=== PATIENT | male | born 1935 | race Caucasian/White ===

== ENCOUNTER 2016-09-22 21:27 | Inpatient (IN) | payer OTHER, MEDICARE ==
[~2016-09-22] VITALS: Ht 182.9 cm; Wt 93.8 kg
[~2016-09-22 21:27] MED LIST: ACET300T2 PO; AMIO200T PO; ATOR40TA16 PO; CARV3.12 PO; DIGO0.12 PO; FURO40TA PO; IPRASOL NEB; K-TA10TA PO; LORA-373 PO; PANT40TA3 PO; PROS5TAB PO; RAMI5CAP PO; TAMS0.4C4 PO; WARF-20 PO; WARF-58 PO
[2016-09-22 22:01] VITALS: BP 115/73; PULSE 70; RESP 15; TEMP 97.6; O2SAT 94
[2016-09-23] VITALS (14 sets, daily range): BP systolic 105–138; BP diastolic 60–84; PULSE 68–85; RESP 18–20; TEMP 97.1–98.5; O2SAT 89–98
[2016-09-23] MEDS ORDERED: SODIUM CHLORIDE 0.9% FLUSH 5 ML FLUSH IVF PRN ×2 (00:15→03:15)
--- NOTE | 2016-09-23 00:47 | RADRPT ---
EXAM DATE/TIME: 09/23/2016 00:13 [place] COMPARISON: CHEST SINGLE AP, August 30, 2016, 4:34. INDICATIONS : Shortness of breath. MEDICAL HISTORY : None. SURGICAL HISTORY : Pacemaker. ENCOUNTER: Initial ACUITY: 1 day PAIN SCORE: 0/10 LOCATION: Bilateral chest FINDINGS: Patchy airspace infiltrates in the central and lower lungs bilaterally with left lower lung consolida tion loss of delineation entire left hemidiaphragm. No evidence of pneumothorax. The heart is mildl y enlarged, similar in size and configuration the prior exam. Cardiac pacer leads in place. CONCLUSION: Increasing consolidation left lower lobe and new patchy infiltrates in the central lungs bilaterally. Yoel Mathur MD on September 23, 2016 at 0:45 Board Certified Radiologist. This report was verified electronically.
[2016-09-23 01:14] LABS: AUTOMATED NEUTROPHIL # 5.3 TH/MM3 (1.8-7.7); BASOPHIL # 0.1 TH/MM3 (0-0.2); EOSINOPHIL # 0.3 TH/MM3 (0-0.4); EOSINOPHIL % 3.7 % (0.0-4.0); HEMATOCRIT 42.6 % (39.0-51.0); LYMPH % 12.3 % (9.0-44.0); LYMPHOCYTE # 0.9 TH/MM3 (1.0-4.8); MEAN CELL VOLUME 94.8 FL (80.0-100.0); MEAN CORPUSCULAR HEMOGLOBIN 31.5 PG (27.0-34.0); MEAN CORPUSCULAR HGB CONC 33.3 % (32.0-36.0); MONO % 9.2 % (0.0-8.0); NEUT % 73.8 % (16.0-70.0); PLATELET COUNT 97 TH/MM3 (150-450); RED CELL DISTRIBUTION WIDTH 15.6 % (11.6-17.2); WHITE BLOOD COUNT 7.2 TH/MM3 (4.0-11.0)
[2016-09-23 01:19] LABS: APTT (PATIENT) 34.2 SEC (24.3-30.1); INTERNATIONAL NORMALIZED RATIO 3.3 RATIO; PROTHROMBIN TIME - PATIENT 38.1 SEC (9.8-11.6)
[2016-09-23 01:34] LABS: HEMO FLAGS AUTO DIFF
[2016-09-23 02:00] LABS: PLATELET ESTIMATE SMEAR LOW (NORMAL); PLATELET MORPHOLOGY NORMAL (NORMAL); SCAN/DIFF AUTO DIFF CONFIRMED
[2016-09-23 02:47] LABS: ALKALINE PHOSPHATASE 86 U/L (45-117); ALT (GPT) 22 U/L (12-78); ANION GAP 7 MEQ/L (5-15); AST (GOT) 16 U/L (15-37); BICARBONATE 28.5 MEQ/L (21.0-32.0); BLOOD UREA NITROGEN 15 MG/DL (7-18); CHLORIDE 111 MEQ/L (98-107); GLOMERULAR FILTRATION RATE 49 ML/MIN (>89); MAGNESIUM 1.8 MG/DL (1.5-2.5); POTASSIUM 4.2 MEQ/L (3.5-5.1); SODIUM (NA) 146 MEQ/L (136-145); TOTAL BILIRUBIN ADULT 0.4 MG/DL (0.2-1.0)
[2016-09-23 02:59] LABS: CREATINE KINASE 53 U/L (39-308)
--- NOTE | 2016-09-23 03:13 | PD ---
HPI Chief Complaint: [place] Problem Time Seen by Provider: 00:03 Travel History International Travel<30 days: No Contact w/Intl Traveler<30days: No Traveled to known affect area: No History of Present Illness HPI 81-year-old male arrives to the ER complaining of migrating left anterior chest wall pacing device. He feels as though it has migrated inferiorly. He also notes that the night prior he felt quite diaphoretic of the course of the night. He also has some shortness of breath. He feels short of breath with ambulation. He has no chest pain. Severity moderate. He denies orthopnea. He reports compliance with medications. No fever. Location cardiopulmonary. PFSH Past Medical History Hx Anticoagulant Therapy: Yes AAA: Yes (REPAIRED 2004) Atrial Fibrillation: Yes Blood Disorders: No Heart Rhythm Problems: Yes (AFIB) Cancer: No Cardiovascular Problems: Yes High Cholesterol: Yes Chest Pain: Yes Congestive Heart Failure: Yes Coronary Artery Disease: Yes Diminished Hearing: Yes (RIGHT EAR) Deep Vein Thrombosis: Yes Endocrine: No Gastrointestinal Disorders: Yes (GI BLEED) GERD: Yes Genitourinary: Yes Hiatal Hernia: No Hypertension: Yes Immune Disorder: No Implanted Vascular Access Dvce: Yes Medical other: Yes (RECENT GI BLEED) Musculoskeletal: No Neurologic: No Psychiatric: No Reproductive: No Respiratory: Yes (sleep apnea) Immunizations Current: Yes (HAD CHILDHOOD ILLNESS IMMUNIZATIONS) Myocardial Infarction: Yes (2010) Pneumonia: Yes Ulcer: Yes PNEUMOCCOCAL Vaccine (Year): 2 Past Surgical History Abdominal Aneurysm Repair: Yes (2004) Abdominal Surgery: Yes (CHOLECYSTECTOMY) AICD: Yes Arteriovenous Shunt: No Body Medical Devices: defibrillator 2012 Cardiac Surgery: Yes (STENT LAD/ Defibrillator, CARDIAC CATH) Cholecystectomy: Yes Coronary Stent: Yes (APRIL 2011) Ear Surgery: No Endocrine Surgery: No Eye Surgery: No Genitourinary Surgery: No Gynecologic Surgery: No Insulin Pump: No Joint Replacement: No Oral Surgery: No Pacemaker: Yes (DEFIBRILLATOR) Thoracic Surgery: No Tonsillectomy: Yes Other Surgery: Yes (NICHO FILTER) Social History Alcohol Use: No Tobacco Use: Yes (2 CIGARS DAILY/DAY BEFORE ) Substance Use: No Allergies-Medications (Allergen,Severity, Reaction): Coded Allergies: Penicillin (Verified Allergy, Unknown, UNKNWON REACTION, 08/23/16) PATIENT STATES THAT HE IS NOT ALLERGIC TO THIS MEDICATION. Reported Meds & Prescriptions Reported Meds & Active Scripts Active Duoneb (Ipratropium-Albuterol Neb) 0.5-2.5 Mg/3 Ml Neb 1 Ampule NEB Q4HR PRN Amiodarone (Amiodarone HCl) 200 Mg Tab 200 Mg PO DAILY Acetaminophen-Codeine 300-30 mg Tab 2 Tab PO Q6HR PRN Lorazepam 0.5 Mg Tab 0.5 Mg PO Q12HR PRN Reported Spironolactone 25 Mg Tab 25 Mg PO DAILY Ciprofloxacin (Ciprofloxacin HCl) 500 Mg Tab 500 Mg PO BID Warfarin 4 Mg Tab 4 Mg PO MON,MON, ,MON Warfarin 3 Mg Tab 3 Mg PO MON,MON K-Tab (Potassium Chloride) 10 Meq Tab 10 Meq PO HS Furosemide 40 Mg Tab 40 Mg PO BID Proscar (Finasteride) 5 Mg Tab 5 Mg PO DAILY Do not crush. Carvedilol 3.125 Mg Tab 3.125 Mg PO BID Pantoprazole (Pantoprazole Sodium) 40 Mg Tab 40 Mg PO DAILY Ramipril 5 Mg Cap 5 Mg PO DAILY Atorvastatin (Atorvastatin Calcium) 40 Mg Tab 60 Mg PO HS Tamsulosin (Tamsulosin HCl) 0.4 Mg Cap 0.4 Mg PO HS Digoxin 0.125 Mg Tab 0.125 Mg PO DAILY Review of Systems Except as stated in HPI: all other systems reviewed are Neg Physical Exam Narrative GENERAL: 81-year-old male pleasant well-nourished well-developed SKIN: Warm and dry. Left anterior chest wall cardiac device mobile underlying the skin. HEAD: Atraumatic. Normocephalic. EYES: Pupils equal and round. No scleral icterus. No injection or drainage. ENT: No nasal bleeding or discharge. Mucous membranes pink and moist. NECK: Trachea midline. No JVD. CARDIOVASCULAR: Regular rate and rhythm. No murmur appreciated. RESPIRATORY: No accessory muscle use. Clear to auscultation. Breath sounds equal bilaterally. GASTROINTESTINAL: Abdomen soft, non-tender, nondistended. Hepatic and splenic margins not palpable. MUSCULOSKELETAL: No obvious deformities. No clubbing. No cyanosis. Nonpitting bilateral edema. NEUROLOGICAL: Awake and alert. No obvious cranial nerve deficits. Motor grossly within normal limits. Normal speech. PSYCHIATRIC: Appropriate mood and affect; insight and judgment normal. Data Data Last Documented VS Vital Signs Date Time Temp Pulse Resp B/P Pulse Ox O2 Delivery O2 Flow Rate FiO2 09/23/16 01:51 90 Nasal Cannula 2 09/23/16 01:50 85 18 105/60 09/22/16 22:01 97.6 Vital signs reviewed Orders Electrocardiogram (09/23/16 00:03) B-Type Natriuretic Peptide (09/23/16 00:03) Ckmb (Isoenzyme) Profile (09/23/16 00:03) Complete Blood Count With Diff (09/23/16 00:03) Comprehensive Metabolic Panel (09/23/16 00:03) Magnesium (Mg) (09/23/16 00:03) Prothrombin Time / Inr (Pt) (09/23/16 00:03) Act Partial Throm Time (Ptt) (09/23/16 00:03) Troponin I (09/23/16 00:03) Chest, Single Ap (09/23/16 00:03) Ecg Monitoring (09/23/16 00:03) Iv Access Insert/Monitor (09/23/16 00:03) Oximetry (09/23/16 00:03) Oxygen Administration (09/23/16 00:03) Sodium Chloride 0.9% Flush (Ns Flush) (09/23/16 00:15) Blood Culture (09/23/16 03:01) Sodium Chloride 0.9% Flush (Ns Flush) (09/23/16 03:15) Ceftriaxone Inj (Rocephin Inj) (09/23/16 03:15) Azithromycin Inj (Zithromax Inj) (09/23/16 03:15) Furosemide Inj (Lasix Inj) (09/23/16 03:15) Admit Order (Ed Use Only) (09/23/16 03:11) Consult Cardiology (09/23/16 ) Admit To Inpatient (09/23/16 ) Code Status (09/23/16 03:11) Vital Signs (Adult) Q4H (09/23/16 03:11) Activity Oob With Assistance (09/23/16 03:11) ^ Cryptographic Vulnerability Analyst / Telemetry .CONTINUOUS (09/23/16 03:11) Intake + Output MYRTLE.QSHIFT (09/23/16 03:11) Diet Heart Healthy (09/23/16 Breakfast) Sodium Chloride 0.9% Flush (Ns Flush) (09/23/16 03:15) Sodium Chloride 0.9% Flush (Ns Flush) (09/23/16 09:00) Acetaminophen (Tylenol) (09/23/16 03:15) Ondansetron Inj (Zofran Inj) (09/23/16 03:15) Prochlorperazine Supp (Compazine Supp) (09/23/16 03:15) Bisacodyl Supp (Dulcolax Supp) (09/23/16 03:15) Magnesium Hydroxide Liq (Milk Of Magnesi (09/23/16 03:15) Sennosides (Senokot) (09/23/16 03:15) Temazepam (Restoril) (09/23/16 03:15) Basic Metabolic Panel (Bmp) (09/24/16 06:00) Complete Blood Count With Diff (09/24/16 06:00) Resp Oxygen Thomas C Titrat 1-4 L (09/23/16 ) Pt Request For Service (09/23/16 03:11) Case Management Consult (09/23/16 03:11) Enoxaparin Inj (Lovenox Inj) (09/23/16 04:00) Scd Bilateral/Knee High MYRTLE.BID (09/23/16 03:11) Daniel Bilateral/Knee High MYRTLE.QSHIFT (09/23/16 03:11) Inpatient Certification (09/23/16 ) Labs Laboratory Tests Test 09/23/16 09/23/16 00:51 01:47 White Blood Count 7.2 TH/MM3 Red Blood Count 4.50 MIL/MM3 Hemoglobin 14.2 GM/DL Hematocrit 42.6 % Mean Corpuscular Volume 94.8 FL Mean Corpuscular Hemoglobin 31.5 PG Mean Corpuscular Hemoglobin 33.3 % Concent Red Cell Distribution Width 15.6 % Platelet Count 97 TH/MM3 Mean Platelet Volume 8.4 FL Neutrophils (%) (Auto) 73.8 % Lymphocytes (%) (Auto) 12.3 % Monocytes (%) (Auto) 9.2 % Eosinophils (%) (Auto) 3.7 % Basophils (%) (Auto) 1.0 % Neutrophils # (Auto) 5.3 TH/MM3 Lymphocytes # (Auto) 0.9 TH/MM3 Monocytes # (Auto) 0.7 TH/MM3 Eosinophils # (Auto) 0.3 TH/MM3 Basophils # (Auto) 0.1 TH/MM3 CBC Comment AUTO DIFF Differential Comment AUTO DIFF CONFIRMED Platelet Estimate LOW Platelet Morphology Comment NORMAL Prothrombin Time 38.1 SEC Prothromb Time International 3.3 RATIO Ratio Activated Partial 34.2 SEC Thromboplast Time B-Type Natriuretic Peptide 1491 PG/ML Sodium Level 146 MEQ/L Potassium Level 4.2 MEQ/L Chloride Level 111 MEQ/L Carbon Dioxide Level 28.5 MEQ/L Anion Gap 7 MEQ/L Blood Urea Nitrogen 15 MG/DL Creatinine 1.39 MG/DL Estimat Glomerular Filtration 49 ML/MIN Rate Random Glucose 113 MG/DL Calcium Level 8.1 MG/DL Magnesium Level 1.8 MG/DL Total Bilirubin 0.4 MG/DL Aspartate Amino Transf 16 U/L (AST/SGOT) Alanine Aminotransferase 22 U/L (ALT/SGPT) Alkaline Phosphatase 86 U/L Total Creatine Kinase 53 U/L Troponin I 0.05 NG/ML Total Protein 5.8 GM/DL Albumin 2.7 GM/DL [facility] Medical Decision Making Medical Screen Exam Complete: Yes Emergency Medical Condition: Yes Medical Record Reviewed: Yes Interpretation(s) CBC & BMP Diagram 09/23/16 00:51 09/23/16 01:47 BNP 1000 491 Troponin 0.05 Albumin 2.7 Urinalysis: Rbc's present INR 3.3 Differential Diagnosis NSTEMI, unstable angina, coronary vasospasm, PE, PTX, aortic dissection, pericarditis, myocarditis, endocarditis, PNA, esophageal disease, aneurysm, musculoskeletal etiologies, anxiety, cocaine/sympathomimetic abuse Narrative Course Patient received Lasix and antibiotics. Blood cultures obtained. Case discussed with Dr. Aquino. Diagnosis Primary Impression: CHF (congestive heart failure) Qualified Code: I50.9 - Congestive heart failure, unspecified congestive heart failure chronicity, unspecified congestive heart failure type Additional Impressions: PNA (pneumonia) Qualified Code: J18.9 - Pneumonia of both lower lobes due to infectious organism Mechanical complication of cardiac device, implant, and graft, other Admitting Information Admitting Physician Requests: Admit Pierce Clemons MD Sep 23, 2016 03:13
[2016-09-23] MEDS ORDERED: TEMAZEPAM 15 MG CAP PO PRN (03:15)
[2016-09-23] MEDS ORDERED: LORazepam 0.5 MG TAB PO PRN (03:15)
[2016-09-23] MEDS ORDERED: AZITHROMYCIN INJ 500 MG in SODIUM CHLOR 0.9% 250 ML INJ 250 ML IV ONE (03:15)
[2016-09-23] MEDS ORDERED: cefTRIAXone INJ 1,000 MG in SODIUM CHLORIDE 0.9% INJ 100 ML IV ONE (03:15)
[2016-09-23] MEDS ORDERED: MAGNESIUM HYDROXIDE SUSP 30 ML CUP PO PRN (03:15)
[2016-09-23] MEDS ORDERED: FUROSEMIDE 40 MG/4 ML VIAL IV PUSH ONE ×2 (03:15→05:15)
[2016-09-23] MEDS ORDERED: ONDANSETRON HCL 4 MG/2 ML VIAL IVP PRN (03:15)
[2016-09-23] MEDS ORDERED: ACETAMINOPHEN 325 MG TAB PO PRN (03:15)
[2016-09-23] MEDS ORDERED: BISACODYL 10 MG SUPP PR PRN (03:15)
[2016-09-23] MEDS ORDERED: SODIUM CHLORIDE 0.9% FLUSH 5 ML FLUSH FLUSH PRN (03:15)
[2016-09-23] MEDS ORDERED: PROCHLORPERAZINE 25 MG SUPP PR PRN (03:15)
[2016-09-23] MEDS ORDERED: SENNOSIDES 8.6 MG TAB PO PRN (03:15)
[2016-09-23] MEDS ORDERED: CIPR500T2 PO (03:54)
[2016-09-23] MEDS ORDERED: SPIR25TA PO (03:54)
[2016-09-23] MEDS ORDERED: ENOXAPARIN SODIUM 40 MG/0.4 ML SYRINGE SQ SCH (04:00)
--- NOTE | 2016-09-23 04:51 | HHI.HP ---
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 fib, dyslipidemia, hypertension, CHF, CAD presented with complaints of shortness of breath, high blood pressure and sweating for one day. Patient states yesterday he just wasn't feeling good at home he had an elevated blood pressure of 135/103, increasing shortness of breath and diaphoretic skin. Patient also states he's been having some chest discomfort from his pacemaker he states about one week ago it started to move in different places on the left side of his chest. He states he was seen by his cyber security systems engineer yesterday but nothing was changed with the pacemaker. He denies any fever or chills. Upon examination patient looks to be short of breath, with decreasing O2 sats to 89%, this is despite the 40 mg of Lasix given in the ED. Per the nurse patient has not voided much since the Lasix only about 300ml. Patient's cyber security systems engineer is Dr. Davis. Review of Systems Constitutional: COMPLAINS OF: Fatigue, Night Sweats, DENIES: Fever, Chills, Dizziness Ears, nose, mouth, throat: DENIES: Vertigo, Nasal discharge Respiratory: COMPLAINS OF: Cough, Shortness of breath, DENIES: Sputum production Cardiovascular: COMPLAINS OF: Chest pain (discomfort), Lower Extremity Edema Gastrointestinal: DENIES: Constipation, Diarrhea, Nausea, Vomiting Genitourinary: DENIES: Urinary incontinence, Hematuria, Dysuria Musculoskeletal: DENIES: Joint pain, Back pain, Neck pain Integumentary: DENIES: Pruritus, Rash Hematologic/lymphatic: DENIES: Lymphadenopathy Immunologic/allergic: DENIES: Urticaria Neurologic: DENIES: Headache, Localized weakness Past Family Social History Past Medical History Hypertension Hyperlipidemia BPH/chronic elevated PSA AAA s/p endovascular repair of AAA on 11-20-07 Tobacco use Chronic DVT/Hx of pulmonary embolism, had PE in 2001. He has had prior right brachial vein thrombosis and DVT of lower extremities a few years ago also. He had a DVT of the left lower extremity on ultrasound on 05-02-11 Hx of gastric ulcer in 2010 COPD/chronic bronchitis Coronary artery disease/Prior MS/Prior PTCA with stent Ischemic cardiomyopathy/LV dysfunction/CHF Paroxysmal atrial fibrillation Stage 3 CKD. His GFR was 58 on 12-17-15. Ascending aortic aneurysm Renal and hepatic cysts Pulmonary hypertension 2D echo on 11-14-13 --EF 20-25% with severe LV dysfunction and diffuse hypokinesis --Trace aortic regurgitation --Mild mitral regurgitation --LA moderately dilated --RV mildly dilated --RA mildly dilated --Tricuspid valve with mild regurgitation --RVSP of 41mm Hg. Past Surgical History Prostate biopsy that was negative on 07-19-02 Endovascular repair of AAA on 11-20-07 [place] IVC filter placed in Apr 2011 [facility] cath done in the setting of an acute anteroseptal MS on 05-04-11 and had moderate to severe LV dysfunction then and underwent PTCA with stent of a totally occluded LAD that was successful. Cardiac cath on 06-09-11 that showed severe LV dysfunction with EF of 30% Radiofrequency ablation of the AV node on 02-27-14 [facility] AICD and this was placed on 11-07-12 EGD on 04-17-11 that showed a large gastric ulcer and gastritis. ERCP in 2005 with common bile duct stone extraction. Reported Medications Reported Meds & Active Scripts Active Duoneb (Ipratropium-Albuterol Neb) 0.5-2.5 Mg/3 Ml Neb 1 Ampule NEB Q4HR PRN Amiodarone (Amiodarone HCl) 200 Mg Tab 200 Mg PO DAILY Acetaminophen-Codeine 300-30 mg Tab 2 Tab PO Q6HR PRN Lorazepam 0.5 Mg Tab 0.5 Mg PO Q12HR PRN Reported Spironolactone 25 Mg Tab 25 Mg PO DAILY Ciprofloxacin (Ciprofloxacin HCl) 500 Mg Tab 500 Mg PO BID Warfarin 4 Mg Tab 4 Mg PO MON,MON, ,SAT Warfarin 3 Mg Tab 3 Mg PO MON,MON K-Tab (Potassium Chloride) 10 Meq Tab 10 Meq PO HS Furosemide 40 Mg Tab 40 Mg PO BID Proscar (Finasteride) 5 Mg Tab 5 Mg PO DAILY Do not crush. Carvedilol 3.125 Mg Tab 3.125 Mg PO BID Pantoprazole (Pantoprazole Sodium) 40 Mg Tab 40 Mg PO DAILY Ramipril 5 Mg Cap 5 Mg PO DAILY Atorvastatin (Atorvastatin Calcium) 40 Mg Tab 60 Mg PO HS Tamsulosin (Tamsulosin HCl) 0.4 Mg Cap 0.4 Mg PO HS Digoxin 0.125 Mg Tab 0.125 Mg PO DAILY Allergies: Coded Allergies: Penicillin (Verified Allergy, Unknown, UNKNWON REACTION, 08/23/16) PATIENT STATES THAT HE IS NOT ALLERGIC TO THIS MEDICATION. Active Ordered Medications Current Medications Medications (Trade) Dose Ordered Sig/Joni Route Start Time Stop Time Status Last Admin (NS Flush) 2 ml UNSCH PRN IVF 09/23/16 00:15 (NS Flush) 2 ml UNSCH PRN IVF 09/23/16 03:15 (NS Flush) 2 ml UNSCH PRN FLUSH 09/23/16 03:15 (NS Flush) 2 ml BID FLUSH 09/23/16 09:00 (Tylenol) 650 mg Q4H PRN PO 09/23/16 03:15 (Zofran Inj) 4 mg Q6H PRN IVP 09/23/16 03:15 (Compazine Supp) 25 mg Q12H PRN IA 09/23/16 03:15 (Dulcolax Supp) 10 mg DAILY PRN IA 09/23/16 03:15 (Milk Of Magnesia Liq) 30 ml Q12H PRN PO 09/23/16 03:15 (Senokot) 17.2 mg Q12H PRN PO 09/23/16 03:15 (Restoril) 15 mg HS PRN PO 09/23/16 03:15 (Lovenox Inj) 40 mg Q24H SQ 09/23/16 04:00 09/23/16 03:35 (Tylenol-Codeine #3) 2 tab Q6HR PRN PO 09/23/16 03:15 (Cordarone) 200 mg DAILY PO 09/23/16 09:00 (Lipitor) 60 mg HS PO 09/23/16 21:00 (Coreg) 3.125 mg BID PO 09/23/16 09:00 (Lanoxin) 0.125 mg DAILY PO 09/23/16 09:00 (Proscar) 5 mg DAILY PO 09/23/16 09:00 (Lasix) 80 mg BID PO 09/23/16 09:00 (Ativan) 0.5 mg Q12HR PRN PO 09/23/16 03:15 (Protonix) 40 mg DAILY PO 09/23/16 09:00 (KCl) 10 meq HS PO 09/23/16 21:00 (Altace) 5 mg DAILY PO 09/23/16 09:00 (Flomax) 0.4 mg HS PO 09/23/16 21:00 Warfarin Sodium 4 mg 4 mg MoTuThSa@16 PO 09/24/16 16:00 Azithromycin 500 mg/Sodium Chloride 250 ml @ 250 mls/hr Q24H IV 09/24/16 05:00 (Rocephin Inj/NS Inj) 100 ml @ 200 mls/hr Q24H IV 09/24/16 04:00 (Coumadin) 3 mg SuWe@16 PO 09/25/16 16:00 (Cipro) 500 mg BID PO 09/23/16 09:00 Family History Denies any family history Social History Tobacco use: he smoked 2-3 ppd of cigarettes for 40 years until quit around 1999 but has smoked cigars since then but down from 8-10 cigars a day to 5 a day. Alcohol use: Denies Pt lives alone He reports that he is able to perform his ADLs and does his own shopping, uses an electric shopping cart No family per the pt Physical Exam Vital Signs Vital Signs Date Time Temp Pulse Resp B/P Pulse Ox O2 Delivery O2 Flow Rate FiO2 09/23/16 01:51 90 Nasal Cannula 2 09/23/16 01:50 85 18 105/60 90 Nasal Cannula 2 09/22/16 22:01 97.6 70 15 115/73 94 Physical Exam GENERAL: This is a pleasant patient that is short of breath. SKIN: No rashes, ecchymoses or lesions. Cool,dry and pale. HEAD: Atraumatic. Normocephalic. EYES: Pupils equal round and reactive. Extraocular motions intact. No scleral icterus. No injection or drainage. ENT: Nose without bleeding, purulent drainage or septal hematoma. Airway patent. Dusky pale lips NECK: Trachea midline. No JVD CARDIOVASCULAR: Paced rate and rhythm without murmurs, gallops, or rubs. Pacemaker currently adjacent to left nipple. +2 pitting edema in bilateral lower extremities RESPIRATORY: Breath sounds diminished throughout, worse on left lower lobe. GASTROINTESTINAL: Abdomen soft, non-tender, nondistended. No guarding. MUSCULOSKELETAL: Bilateral lower extremity +2 edema. No joint tenderness, effusion, or edema noted. No calf tenderness. NEUROLOGICAL: Awake and alert. Cranial nerves II through XII intact. Motor and sensory grossly within normal limits. Five out of 5 muscle strength in all muscle groups. Normal speech. Laboratory Laboratory Tests Test 09/23/16 09/23/16 00:51 01:47 White Blood Count 7.2 Red Blood Count 4.50 Hemoglobin 14.2 Hematocrit 42.6 Mean Corpuscular Volume 94.8 Mean Corpuscular Hemoglobin 31.5 Mean Corpuscular Hemoglobin 33.3 Concent Red Cell Distribution Width 15.6 Platelet Count 97 Mean Platelet Volume 8.4 Neutrophils (%) (Auto) 73.8 Lymphocytes (%) (Auto) 12.3 Monocytes (%) (Auto) 9.2 Eosinophils (%) (Auto) 3.7 Basophils (%) (Auto) 1.0 Neutrophils # (Auto) 5.3 Lymphocytes # (Auto) 0.9 Monocytes # (Auto) 0.7 Eosinophils # (Auto) 0.3 Basophils # (Auto) 0.1 CBC Comment AUTO DIFF Differential Comment AUTO DIFF CONFIRMED Platelet Estimate LOW Platelet Morphology Comment NORMAL Prothrombin Time 38.1 Prothromb Time International 3.3 Ratio Activated Partial 34.2 Thromboplast Time B-Type Natriuretic Peptide 1491 Sodium Level 146 Potassium Level 4.2 Chloride Level 111 Carbon Dioxide Level 28.5 Anion Gap 7 Blood Urea Nitrogen 15 Creatinine 1.39 Estimat Glomerular Filtration 49 Rate Random Glucose 113 Calcium Level 8.1 Magnesium Level 1.8 Total Bilirubin 0.4 Aspartate Amino Transf 16 (AST/SGOT) Alanine Aminotransferase 22 (ALT/SGPT) Alkaline Phosphatase 86 Total Creatine Kinase 53 Troponin I 0.05 Total Protein 5.8 Albumin 2.7 Date/Time Procedure Status Source Growth 09/23/16 03:30 Aerobic Blood Culture Received Blood Peripheral Pending 09/23/16 03:30 Anaerobic Blood Culture Received Blood Peripheral Pending 09/23/16 03:00 Legionella Antigen Received Urine Random Urine Pending 09/23/16 03:00 Streptococcus pneumoniae Antigen (M Received Urine Random Urine Pending Result Diagram: 09/23/16 0051 09/23/16 0147 Imaging Last Impressions Chest X-Ray 09/23/16 0003 Signed Impressions: Service Date/Time: Friday, September 23, 2016 00:13 - CONCLUSION: Increasing consolidation left lower lobe and new patchy infiltrates in the central lungs bilaterally. Yoel Mathur MD Assessment and Plan Problem List: (1) Pneumonia ICD Code: J18.9 Status: Acute (2) Complications, pacemaker cardiac, mechanical ICD Code: T82.111A Status: Acute (3) HTN (hypertension) ICD Code: I10 Status: Chronic (4) Atrial fibrillation ICD Code: I48.91 Status: Chronic (5) CHF (congestive heart failure) ICD Code: I50.9 Status: Acute (6) MIRIAM (acute kidney injury) ICD Code: N17.9 Status: Acute (7) Hyperlipidemia ICD Code: E78.5 Status: Chronic Assessment and Plan 81-year-old male with a history of A. fib, dyslipidemia, hypertension, CHF and a pacemaker presented with: Pneumonia Images reviewed: Chest x-ray shows left lower lobe consolidation and patchy infiltrates within the central lobes. -DuoNeb's every 6H -Azithromycin IV and Rocephin IV -Sputum culture pending, urine pending for Legionella and pneumococcal -Solumedrol 125 once than 40mg q8hr Complications with pacemaker -Consult cardiology Acute kidney injury Labs: Creatinine 1.39 baseline 1.1 -Trend BMP -Avoid nephrotoxic drugs CHF exacerbation Labs: BNP 1491 -Much for fluid overload -40 mg Lasix IV given in ED, additional 60 mg given -Order home medications Coreg and Lasix -West placed Hypertension, chronic -Reorder home medications: Proscar -Monitor vitals -Will order prns if necessary A. fib, chronic -Monitor telemetry -Order home medications: Digoxin and Coumadin DVT prophylaxis: Lovenox and Coumadin Written by Tiki ZAMORA, acting as scribe for Dr. Aquino on 09/23/16 at 0455. The documentation accurately reflects the work performed [id number] and decisions made by me and the physician Dr Aquino on 09/23/16. The documentation accurately reflects the work performed [id number] by me Dr. Aquino on 09/23/16 at 0455. Discussed Condition With Patient and ED physician Physician Certification 2 Midnight Certification Type: Admission for Inpatient Services Order for Inpatient Services The services are ordered in accordance with Medicare regulations or non- Medicare payer requirements, as applicable. In the case of services not specified as inpatient-only, they are appropriately provided as inpatient services in accordance with the 2-midnight benchmark. Estimated LOS (days): 3 days is the estimated time the patient will need to remain in the hospital, assuming treatment plan goals are met and no additional complications. Post-Hospital Plan: Not yet determined Tiki Lazo Sep 23, 2016 04:51 Madisyn Aquino MD Sep 23, 2016 05:44
[2016-09-23] MEDS ORDERED: methylPREDNISolone SOD SUCC 125 MG/2 ML VIAL IV PUSH ONE (05:15)
[2016-09-23] MEDS: RESP: ALBUTEROL 2.5 MG/IPRATROPIUM 0.5 MG NEB (PRN) NEB (05:29)
[2016-09-23 05:48] LABS: BLOOD GAS CARBOXYHEMOGLOBIN 2.1 % (0-4); BLOOD GAS HCO3 26 mmol/L (22-26); BLOOD GAS METHEMOGLOBIN 1.8 % (0-2); BLOOD GAS O2 HGB SATURATION 86 % (90-100); BLOOD GAS OXYGEN CONTENT 18.1 Vol % (12.0-20.0); BLOOD GAS PCO2 43 mmHg (38-42); BLOOD GAS PO2 59 mmHG (61-120); BLOOD GAS TOTAL HGB 14.9 G/DL (12.0-16.0); TEMP CORR TO 98.6
[2016-09-23 05:50] LABS: CRITICAL VALUE YES; DRAW SITE LT RADIAL; FIO2 32 %; LITER FLOW 4 L/M; NUMBER OF ARTERIAL PUNCTURES 1; OXYGEN DEVICE NASAL CANNULA; STAT YES; ULNAR PULSE PRESENT
[2016-09-23 05:53] LABS: BLOOD, URINE SMALL (NEG); GLUCOSE,URINE NEG (NEG); KETONE, URINE NEG (NEG); NITRITE,URINE NEG (NEG); PH, URINE 5.5 (5.0-8.5); URINE COLOR YELLOW (YELLW/STRAW)
[2016-09-23 06:04] LABS: COMMENT (UR) CATH-CULT NOT IND; CULTURE IF INDICATED CATH CULTURE NOT IND
[2016-09-23] MEDS: RESP: ALBUTEROL 2.5 MG/IPRATROPIUM 0.5 MG NEB (SCH) NEB ×3 (07:39→20:46)
[2016-09-23] MEDS ORDERED: CIPROFLOXACIN 500 MG TAB PO SCH (09:00)
[2016-09-23] MEDS: SODIUM CHLORIDE 0.9% FLUSH 5 ML FLUSH FLUSH SCH ×2 (09:11→22:38)
[2016-09-23] MEDS: RAMIPRIL 5 MG CAP PO SCH (09:12)
[2016-09-23] MEDS: AMIODARONE 200 MG TAB PO SCH (09:12)
[2016-09-23] MEDS: FUROSEMIDE 40 MG TAB PO SCH ×2 (09:12→22:36)
[2016-09-23] MEDS: DIGOXIN 0.125 MG TAB PO SCH (09:12)
[2016-09-23] MEDS: FINASTERIDE 5 MG TAB PO SCH (09:12)
[2016-09-23] MEDS: PANTOPRAZOLE SOD 40 MG DELAYED RELEASE TAB PO SCH (09:13)
[2016-09-23] MEDS: CARVEDILOL 3.125 MG TAB PO SCH ×2 (09:13→22:37)
[2016-09-23] MEDS ORDERED: methylPREDNISolone SOD SUCC 40 MG/1 ML VIAL IV PUSH SCH (14:00)
--- NOTE | 2016-09-23 14:39 | EKG ---
Date Performed: 09/23/2016 Time Performed: 00:32:15 PTAGE: 81 years EKG: ELECTRONIC VENTRICULAR PACEMAKER ST DEPRESSION, CONSIDER SUBENDOCARDIAL INJURY ABNORMAL ECG Since PREVIOUS TRACING , no significant change noted DOCTOR: Destiny Singh Interpretating Date/Time 09/23/2016 14:35:22
[2016-09-23] MEDS ORDERED: WARFARIN SOD 3 MG TAB PO SCH (16:00)
--- NOTE | 2016-09-23 17:12 | HHI.PR ---
Subjective Remarks Follow-up for shortness of breath Shortness of breath better, still coughing but better. Afebrile. No nausea and vomiting. No urinary symptoms per no abdominal pain. Objective Vitals Vital Signs Date Time Temp Pulse Resp B/P Pulse Ox O2 Delivery O2 Flow Rate FiO2 09/23/16 15:38 70 20 128/81 92 Venturi Mask 09/23/16 15:05 95 Venturi Mask 6.00 50 09/23/16 11:00 68 20 138/82 92 Partial Rebreather 15 09/23/16 09:00 68 20 138/84 95 Partial Rebreather 15 09/23/16 08:07 98 Nasal Cannula 15 09/23/16 07:51 69 18 99 Partial Rebreather 60 09/23/16 07:45 98 Non-Rebreather 15.00 09/23/16 07:00 98.5 68 18 134/81 97 Partial Rebreather 15 09/23/16 06:35 90 Non-Rebreather 50 09/23/16 06:33 70 20 134/81 90 Venturi Mask 40 09/23/16 06:01 96 Venturi Mask 6.00 40 09/23/16 05:56 94 Venturi Mask 40 09/23/16 05:33 94 Nasal Cannula 4.00 09/23/16 01:51 90 Nasal Cannula 2 09/23/16 01:50 85 18 105/60 90 Nasal Cannula 2 09/22/16 22:01 97.6 70 15 115/73 94 I/O 09/22/16 09/22/16 09/22/16 09/23/16 09/23/16 09/23/16 07:00 15:00 23:00 07:00 15:00 23:00 Intake Total 350 ml Output Total 1975 ml Balance -1625 ml Intake IV Total 350 ml Output Urine Total 1975 ml # Voids 0 Result Diagram: 09/23/16 0051 09/23/16 0147 Imaging Last Impressions Chest X-Ray 09/23/16 0003 Signed Impressions: Service Date/Time: Friday, September 23, 2016 00:13 - CONCLUSION: Increasing consolidation left lower lobe and new patchy infiltrates in the central lungs bilaterally. Yoel Mathur MD Objective Remarks Not in distress, well-nourished, looks stated age PERRL, pink conjunctiva without injection, anicteric Nose without bleeding, airway patent, oropharynx clear Supple neck, no masses or thyromegaly, trachea midline Borderline tachycardic, regular rhythm, no murmurs gallops or rubs appreciated. Bilateral crackles especially on the left base, no wheezing Normal bowel sounds, soft, non-tender, nondistended, no guarding. Extremities without clubbing, cyanosis, or edema. No rash of generalized distribution. Skin is warm and dry. AAO x3, no cranial nerve deficits, moves all 4 extremities, no focal neurologic deficits Normal mood, appropriate affect A/P Problem List: (1) Pneumonia ICD Code: J18.9 Status: Acute (2) Complications, pacemaker cardiac, mechanical ICD Code: T82.111A Status: Acute (3) HTN (hypertension) ICD Code: I10 Status: Chronic (4) Atrial fibrillation ICD Code: I48.91 Status: Chronic (5) CHF (congestive heart failure) ICD Code: I50.9 Status: Acute (6) MIRIAM (acute kidney injury) ICD Code: N17.9 Status: Acute (7) Hyperlipidemia ICD Code: E78.5 Status: Chronic Assessment and Plan 81-year-old male with a history of A. fib, dyslipidemia, hypertension, CHF and a pacemaker presented with: Acute respiratory failure, hypoxic, secondary to Pneumonia -chest x-ray shows left lower lobe consolidation, continue duo nebs, azithromycin, ceftriaxone and oxygen support, check sputum culture. Decrease Solu-Medrol. It BG showed hypoxemia. I Complications with pacemaker -Consult cardiology, input pending Acute kidney injury-Baseline creatinine around 1.1-1.3, monitor BMP. CHF exacerbation-there is also complaining of CHF exacerbation, continue Lasix, monitor BMP. -1.6 L overnight Hypertension, chronic -Reorder home medications: Proscar -Monitor vitals A. fib, chronic -Monitor telemetry -Order home medications: Digoxin and Coumadin DVT prophylaxis: Coumadin. Problem Qualifiers (1) CHF (congestive heart failure): Qualified Code: I50.9 - Congestive heart failure, unspecified congestive heart failure chronicity, unspecified congestive heart failure type Alina Mccarty MD Sep 23, 2016 17:12
--- NOTE | 2016-09-23 18:34 | MB ---
cc: KATHY PALACIOS M.D. DATE OF CONSULTATION: 09/23/2016. REASON FOR CONSULTATION: Cardiology electrophysiology consultation. HISTORY OF PRESENT ILLNESS: Mr. Dias is an 81-year-old gentleman with congestive heart failure, cardiomyopathy, biventricular pacer, defibrillator insertion and LV lead by Dr. Olivera admitted through the emergency room due to shortness of breath and pneumonia. The patient refers feeling the device is moving. He has also heart failure. I was consulted for evaluation. The chart was reviewed. The patient was evaluated. ALLERGIES: Penicillin. SOCIAL HISTORY: Negative for smoking and drinking. FAMILY HISTORY: Noncontributory to his current medical condition. MEDICATIONS: Gentleman is on: 1. Zithromax. 2. Ceftriaxone. 3. Tylenol with codeine. 4. Albuterol. 5. Atorvastatin. 6. Coreg. 7. Cipro. 8. Digoxin. 9. Lovenox subcutaneous. 10. Proscar. 11. Lasix. 12. Magnesium. 13. Methylprednisolone. 14. Reglan. 15. Potassium. 16. Altace. 17. Flomax. 18. Coumadin. REVIEW OF SYSTEMS: He refers feeling better. No shortness of breath. Able to tolerate a flat bed. PHYSICAL EXAMINATION: GENERAL: Alert, fully oriented. VITAL SIGNS: His blood pressure is 128/81, pulse 70, respiratory rate 18. CHEST: The left infraclavicular area has a healing surgical scar. LUNGS: Ventilated. CARDIOVASCULAR: S1 and S2 regular. ABDOMEN: Abdomen soft, no mass. No bruits. EXTREMITIES: No edema. LABORATORY DATA: Hemoglobin is 14.2, white blood cell 7.2. Potassium 4.2, creatinine 1.39. Troponin is 0.05. BNP is close to 1500. INR is 3.3. ASSESSMENT AND RECOMMENDATIONS: Mr. Dias's condition continues to improve. He is on IV antibiotics. He did receive IV Lasix. Urine output has increased to close to two liters for the day. His blood pressure is adequate. He has pneumonia. He is on IV antibiotics. He refers shifting in his device pocket. The pocked looks good. There is good healing and the scar is very healthy. At this point, my recommendation is to continue with current management. Continue to manage him for pneumonia. I will be available on a PRN basis. If necessary, call Dr. Garza who is going to be production assembly supervisor this weekend. The case was discussed with him. MD KELLEY Nix/SHANNAN /6:10 PM /6:27 PM
[2016-09-23] MEDS: cefTRIAXone INJ 1,000 MG in SODIUM CHLORIDE 0.9% INJ 100 ML IV SCH (20:00)
[2016-09-23] MEDS: ATORVASTATIN 40 MG TAB PO SCH (22:35)
[2016-09-23] MEDS: TAMSULOSIN HCL 0.4 MG CAP PO SCH (22:36)
[2016-09-23] MEDS: POTASSIUM CHLORIDE 10 MEQ CONTROLLED RELEASE TAB PO SCH (22:36)
[2016-09-23] MEDS: methylPREDNISolone SOD SUCC 40 MG/1 ML VIAL IV PUSH SCH (22:38)
[2016-09-24] VITALS (8 sets, daily range): BP systolic 101–112; BP diastolic 61–75; PULSE 67–100; RESP 16–20; TEMP 97.5–98; O2SAT 90–94
[2016-09-24] MEDS: cefTRIAXone INJ 1,000 MG in SODIUM CHLORIDE 0.9% INJ 100 ML IV SCH (04:00)
[2016-09-24] MEDS: AZITHROMYCIN INJ 500 MG in SODIUM CHLOR 0.9% 250 ML INJ 250 ML IV SCH (05:58)
--- NOTE | 2016-09-24 07:47 | HHI.PR ---
Subjective Remarks Says he feels much better. No chest steele. Has cough and chest congestion. No n/v/ d/c. Denies fever or chills. Objective Vitals Vital Signs Date Time Temp Pulse Resp B/P Pulse Ox O2 Delivery O2 Flow Rate FiO2 09/24/16 04:00 97.7 70 16 107/63 94 09/24/16 00:17 97.8 70 16 112/64 93 09/23/16 22:30 Simple Mask 6.00 09/23/16 20:49 94 Venturi Mask 6.00 50 09/23/16 20:44 94 Venturi Mask 6.00 50 09/23/16 20:22 97.1 70 20 112/70 89 09/23/16 20:02 69 09/23/16 15:38 70 20 128/81 92 Venturi Mask 09/23/16 15:05 95 Venturi Mask 6.00 50 09/23/16 11:00 68 20 138/82 92 Partial Rebreather 15 09/23/16 09:00 68 20 138/84 95 Partial Rebreather 15 09/23/16 08:07 98 Nasal Cannula 15 09/23/16 07:51 69 18 99 Partial Rebreather 60 I/O 09/23/16 09/23/16 09/23/16 09/24/16 09/24/16 09/24/16 07:00 15:00 23:00 07:00 15:00 23:00 Intake Total 350 ml 900 ml 240 ml Output Total 1975 ml 1600 ml 800 ml Balance -1625 ml -700 ml -560 ml Intake Oral 900 ml 240 ml IV Total 350 ml Output Urine Total 1975 ml 1600 ml 800 ml # Voids 0 Result Diagram: 09/23/16 0051 09/23/16 0147 Imaging Last Impressions Chest X-Ray 09/23/16 0003 Signed Impressions: Service Date/Time: Friday, September 23, 2016 00:13 - CONCLUSION: Increasing consolidation left lower lobe and new patchy infiltrates in the central lungs bilaterally. Yoel Mathur MD Objective Remarks GENERAL: This is a pleasant patient that is short of breath. SKIN: No rashes, ecchymoses or lesions. Cool,dry and pale. HEAD: Atraumatic. Normocephalic. EYES: Pupils equal round and reactive. Extraocular motions intact. No scleral icterus. No injection or drainage. ENT: Nose without bleeding, purulent drainage or septal hematoma. Airway patent. Dusky pale lips NECK: Trachea midline. No JVD CARDIOVASCULAR: Paced rate and rhythm without murmurs, gallops, or rubs. Pacemaker currently adjacent to left nipple. +2 pitting edema in bilateral lower extremities RESPIRATORY: Breath sounds diminished throughout, worse on left lower lobe. GASTROINTESTINAL: Abdomen soft, non-tender, nondistended. No guarding. MUSCULOSKELETAL: Bilateral lower extremity +2 edema. No joint tenderness, effusion, or edema noted. No calf tenderness. NEUROLOGICAL: Awake and alert. Cranial nerves II through XII intact. Motor and sensory grossly within normal limits. Five out of 5 muscle strength in all muscle groups. Normal speech. A/P Problem List: (1) Pneumonia ICD Code: J18.9 Status: Acute (2) Complications, pacemaker cardiac, mechanical ICD Code: T82.111A Status: Acute (3) HTN (hypertension) ICD Code: I10 Status: Chronic (4) Atrial fibrillation ICD Code: I48.91 Status: Chronic (5) CHF (congestive heart failure) ICD Code: I50.9 Status: Acute (6) MIRIAM (acute kidney injury) ICD Code: N17.9 Status: Acute (7) Hyperlipidemia ICD Code: E78.5 Status: Chronic Assessment and Plan 81-year-old male with a history of A. fib, dyslipidemia, hypertension, CHF and a pacemaker presented with: Pneumonia Images reviewed: Chest x-ray shows left lower lobe consolidation and patchy infiltrates within the central lobes. -DuoNeb's every 6H -Azithromycin IV and Rocephin IV -Sputum culture pending, urine pending for Legionella and pneumococcal -Solumedrol 125 once then 40mg q12hr, continue to taper down Complications with pacemaker -Consult cardiology. Seen by Dr Davis, who evaluated the patient and no signs of infection, scar is healing well , no any intervention recommended, will follow as PRN. Recommends treating PNA. Acute kidney injury Labs: Creatinine 1.39 baseline 1.1 -Trend BMP -Avoid nephrotoxic drugs CHF exacerbation Labs: BNP 1491 -Much for fluid overload -40 mg Lasix IV given in ED, additional 60 mg given. Continue lasix . Monitor UOP, improved. -Order home medications Coreg and Lasix -West placed Hypertension, chronic -Reorder home medications: Proscar -Monitor vitals -Will order prns A. fib, chronic -Monitor telemetry -Order home medications: Digoxin and Coumadin DVT prophylaxis: Lovenox and Coumadin Discussed with the nurse, patient. Problem Qualifiers (1) CHF (congestive heart failure): Qualified Code: I50.9 - Congestive heart failure, unspecified congestive heart failure chronicity, unspecified congestive heart failure type Madisyn Aquino MD Sep 24, 2016 07:47
[2016-09-24 08:21] LABS: AUTOMATED NEUTROPHIL # 11.3 TH/MM3 (1.8-7.7); BASOPHIL # 0.1 TH/MM3 (0-0.2); BASOPHIL % 0.5 % (0.0-2.0); EOSINOPHIL % 0.1 % (0.0-4.0); HEMATOCRIT 41.2 % (39.0-51.0); HEMO FLAGS DIFF FINAL; LYMPH % 2.6 % (9.0-44.0); LYMPHOCYTE # 0.3 TH/MM3 (1.0-4.8); MEAN CELL VOLUME 92.1 FL (80.0-100.0); MEAN CORPUSCULAR HGB CONC 33.7 % (32.0-36.0); NEUT % 92.8 % (16.0-70.0); PLATELET COUNT 103 TH/MM3 (150-450); RED BLOOD COUNT 4.47 MIL/MM3 (4.50-5.90); RED CELL DISTRIBUTION WIDTH 15.2 % (11.6-17.2); WHITE BLOOD COUNT 12.2 TH/MM3 (4.0-11.0)
[2016-09-24 08:23] LABS: INTERNATIONAL NORMALIZED RATIO 3.3 RATIO; PROTHROMBIN TIME - PATIENT 38.1 SEC (9.8-11.6)
[2016-09-24] MEDS: DIGOXIN 0.125 MG TAB PO SCH (08:29)
[2016-09-24] MEDS: RAMIPRIL 5 MG CAP PO SCH (08:31)
[2016-09-24] MEDS: methylPREDNISolone SOD SUCC 40 MG/1 ML VIAL IV PUSH SCH ×2 (08:31→20:41)
[2016-09-24] MEDS: FINASTERIDE 5 MG TAB PO SCH (08:31)
[2016-09-24] MEDS: FUROSEMIDE 40 MG TAB PO SCH ×2 (08:31→20:37)
[2016-09-24] MEDS: AMIODARONE 200 MG TAB PO SCH (08:31)
[2016-09-24] MEDS: CARVEDILOL 3.125 MG TAB PO SCH ×2 (08:31→20:37)
[2016-09-24] MEDS: PANTOPRAZOLE SOD 40 MG DELAYED RELEASE TAB PO SCH (08:31)
[2016-09-24] MEDS: SODIUM CHLORIDE 0.9% FLUSH 5 ML FLUSH FLUSH SCH ×2 (08:32→20:41)
[2016-09-24 08:42] LABS: BICARBONATE 29.8 MEQ/L (21.0-32.0); MAGNESIUM 1.9 MG/DL (1.5-2.5); POTASSIUM 3.8 MEQ/L (3.5-5.1)
[2016-09-24] MEDS: RESP: ALBUTEROL 2.5 MG/IPRATROPIUM 0.5 MG NEB (SCH) NEB ×3 (09:06→21:05)
[2016-09-24] MEDS: guaiFENesin E.R. 600 MG TAB PO SCH (20:35)
[2016-09-24] MEDS: POTASSIUM CHLORIDE 10 MEQ CONTROLLED RELEASE TAB PO SCH (20:36)
[2016-09-24] MEDS: TAMSULOSIN HCL 0.4 MG CAP PO SCH (20:37)
[2016-09-24] MEDS: ATORVASTATIN 40 MG TAB PO SCH (20:37)
[2016-09-25] VITALS (9 sets, daily range): BP systolic 106–136; BP diastolic 65–82; PULSE 40–73; RESP 18–22; TEMP 97.2–98.3; O2SAT 91–96
[2016-09-25] MEDS: cefTRIAXone INJ 1,000 MG in SODIUM CHLORIDE 0.9% INJ 100 ML IV SCH (03:56)
[2016-09-25] MEDS: AZITHROMYCIN INJ 500 MG in SODIUM CHLOR 0.9% 250 ML INJ 250 ML IV SCH (05:22)
[2016-09-25 08:46] LABS: AUTOMATED NEUTROPHIL # 11.4 TH/MM3 (1.8-7.7); BASOPHIL % 0.2 % (0.0-2.0); HEMATOCRIT 43.7 % (39.0-51.0); HEMO FLAGS DIFF FINAL; LYMPH % 3.1 % (9.0-44.0); LYMPHOCYTE # 0.4 TH/MM3 (1.0-4.8); MEAN CELL VOLUME 94.1 FL (80.0-100.0); MEAN CORPUSCULAR HEMOGLOBIN 31.1 PG (27.0-34.0); MONO % 4.2 % (0.0-8.0); NEUT % 92.5 % (16.0-70.0); PLATELET COUNT 106 TH/MM3 (150-450); RED BLOOD COUNT 4.65 MIL/MM3 (4.50-5.90); RED CELL DISTRIBUTION WIDTH 15.7 % (11.6-17.2); WHITE BLOOD COUNT 12.3 TH/MM3 (4.0-11.0)
[2016-09-25] MEDS: RESP: ALBUTEROL 2.5 MG/IPRATROPIUM 0.5 MG NEB (SCH) NEB ×3 (09:03→19:27)
[2016-09-25 09:19] LABS: BICARBONATE 33.9 MEQ/L (21.0-32.0); POTASSIUM 3.8 MEQ/L (3.5-5.1)
[2016-09-25] MEDS: FINASTERIDE 5 MG TAB PO SCH (10:39)
[2016-09-25] MEDS: FUROSEMIDE 40 MG TAB PO SCH ×2 (10:39→20:30)
[2016-09-25] MEDS: RAMIPRIL 5 MG CAP PO SCH (10:39)
[2016-09-25] MEDS: AMIODARONE 200 MG TAB PO SCH (10:40)
[2016-09-25] MEDS: PANTOPRAZOLE SOD 40 MG DELAYED RELEASE TAB PO SCH (10:40)
[2016-09-25] MEDS: CARVEDILOL 3.125 MG TAB PO SCH ×2 (10:40→20:29)
[2016-09-25] MEDS: DIGOXIN 0.125 MG TAB PO SCH (10:40)
[2016-09-25] MEDS: methylPREDNISolone SOD SUCC 40 MG/1 ML VIAL IV PUSH SCH ×2 (10:40→20:36)
[2016-09-25] MEDS: guaiFENesin E.R. 600 MG TAB PO SCH ×2 (10:40→20:30)
[2016-09-25] MEDS: SODIUM CHLORIDE 0.9% FLUSH 5 ML FLUSH FLUSH SCH ×2 (10:40→20:36)
--- NOTE | 2016-09-25 12:21 | HHI.FPPN ---
Subjective Remarks Patient seen and examined this am. Saturating in the 90s on 50% FiO2, 6L via venturi mask. Patient eating breakfast, no oxygen currently and currently feels well. Does not use oxygen at home. Got up to chair yesterday. Lives at home with sister, does not want to go to rehab. Wants to know if he can have oxygen to go home because he feels a difference without it. Objective Vitals Vital Signs Date Time Temp Pulse Resp B/P Pulse Ox O2 Delivery O2 Flow Rate FiO2 09/25/16 09:04 95 Venturi Mask 6.00 50 09/25/16 08:00 Venturi Mask 50 09/25/16 08:00 97.2 73 21 136/79 91 09/25/16 08:00 69 09/25/16 04:40 69 09/25/16 04:00 97.4 40 20 121/82 95 09/25/16 00:00 98.3 72 20 106/65 96 09/24/16 21:08 94 Venturi Mask 6.00 50 09/24/16 20:40 94 Venturi Mask 6.00 09/24/16 20:00 97.5 70 20 110/64 93 09/24/16 16:00 97.7 70 20 103/61 92 I/O 09/24/16 09/24/16 09/24/16 09/25/16 09/25/16 09/25/16 07:00 15:00 23:00 07:00 15:00 23:00 Intake Total 240 ml 480 ml 2 ml 220 ml Output Total 800 ml 2000 ml 900 ml Balance -560 ml -1520 ml 2 ml -680 ml Intake Oral 240 ml 480 ml 220 ml IV Total 2 ml Output Urine Total 800 ml 2000 ml 900 ml # Bowel Movements 0 0 Result Diagram: 09/25/16 0703 09/25/16 0703 Imaging Last Impressions Chest X-Ray 09/23/16 0003 Signed Impressions: Service Date/Time: Friday, September 23, 2016 00:13 - CONCLUSION: Increasing consolidation left lower lobe and new patchy infiltrates in the central lungs bilaterally. Yoel Mathur MD Objective Remarks GENERAL: This is a pleasant patient that sitting comfortably in bed, eating breakfast. SKIN: No rashes, ecchymoses or lesions. Cool,dry and pale. HEAD: Atraumatic. Normocephalic. EYES: Pupils equal round and reactive. Extraocular motions intact. No scleral icterus. No injection or drainage. ENT: Nose without bleeding, purulent drainage or septal hematoma. Airway patent. Dusky pale lips NECK: Trachea midline. No JVD CARDIOVASCULAR: Paced rate and rhythm without murmurs, gallops, or rubs. Pacemaker currently adjacent to left nipple. +2 pitting edema in bilateral lower extremities RESPIRATORY: Breath sounds diminished throughout, worse on left lower lobe,no wheezing, rales, or rhonchi present. GASTROINTESTINAL: Abdomen soft, non-tender, nondistended. No guarding. MUSCULOSKELETAL: Bilateral lower extremity +2 edema. No joint tenderness, effusion, or edema noted. No calf tenderness. NEUROLOGICAL: Awake and alert. Motor and sensory grossly within normal limits Normal speech. A/P Assessment and Plan 81-year-old male with a history of A. fib, dyslipidemia, hypertension, CHF and a pacemaker presented with: Pneumonia Chest x-ray shows left lower lobe consolidation and patchy infiltrates within the central lobes. -DuoNeb's every 6H -Azithromycin IV and Rocephin IV (started 09/24) -Sputum culture normal respiratory brianne, urine negative for Legionella and pneumococcal - Blood cultures neg x 2 days - Mucinex -Solumedrol 125 x1 in ED, continue 40mg q12hr, taper down with improved respiratory status - Acappella and incentive spirometry Complications with pacemaker -Consult cardiology. Seen by Dr Davis, who evaluated the patient and no signs of infection, scar is healing well , no any intervention recommended, will follow as PRN. Recommends treating PNA. Acute kidney injury Labs: Creatinine 1.25 (improving from admission) baseline 1.1 -Trend BMP -Avoid nephrotoxic drugs CHF exacerbation Labs: BNP 1491, 1159 - Did not see ECHO in EMR, ordered - S/P 40 mg Lasix IV given in ED, additional 60 mg IV 09/24 given - S/P Lasix 80 mg PO BID, switched to home dose 40 mg PO BID today - KCl 40 meq daily - Good urine output Hypertension, chronic, currently stable -Home medications: coreg 3.125 mg BID, ramipril 5 mg A. fib, chronic -Monitor telemetry -Home medications: Digoxin, Amiodarone, and Coumadin BPH - cont home finasteride and flomax DVT prophylaxis: therapeutic on Coumadin Discharge Planning D/C likely tomorrow. Will transition to PO abx in the am. Home oxygen walk test ordered. Problem List: (1) COPD (chronic obstructive pulmonary disease) Status: Chronic (2) Ischemic cardiomyopathy Status: Chronic (3) Pneumonia Status: Acute (4) Atrial fibrillation Status: Chronic (5) HTN (hypertension) Status: Chronic (6) CHF (congestive heart failure) Status: Acute Problem Qualifiers (1) CHF (congestive heart failure): Qualified Code: I50.9 - Congestive heart failure, unspecified congestive heart failure chronicity, unspecified congestive heart failure type Rossy Harrell MD R3 Sep 25, 2016 12:21
[2016-09-25] MEDS: WARFARIN SOD 3 MG TAB PO SCH (16:34)
[2016-09-25] MEDS: POTASSIUM CHLORIDE 10 MEQ CONTROLLED RELEASE TAB PO SCH (20:29)
[2016-09-25] MEDS: TAMSULOSIN HCL 0.4 MG CAP PO SCH (20:30)
[2016-09-25] MEDS: ATORVASTATIN 40 MG TAB PO SCH (20:36)
[2016-09-26] VITALS (11 sets, daily range): BP systolic 106–128; BP diastolic 60–81; PULSE 69–82; RESP 16–22; TEMP 96.7–97.8; O2SAT 89–97
[2016-09-26] MEDS: cefTRIAXone INJ 1,000 MG in SODIUM CHLORIDE 0.9% INJ 100 ML IV SCH (03:55)
[2016-09-26] MEDS: AZITHROMYCIN INJ 500 MG in SODIUM CHLOR 0.9% 250 ML INJ 250 ML IV SCH (05:25)
[2016-09-26 06:06] LABS: AUTOMATED NEUTROPHIL # 9.5 TH/MM3 (1.8-7.7); BASOPHIL % 0.1 % (0.0-2.0); HEMATOCRIT 46.1 % (39.0-51.0); HEMO FLAGS DIFF FINAL; LYMPH % 3.3 % (9.0-44.0); LYMPHOCYTE # 0.3 TH/MM3 (1.0-4.8); MEAN CELL VOLUME 93.8 FL (80.0-100.0); MEAN CORPUSCULAR HEMOGLOBIN 31.2 PG (27.0-34.0); MEAN CORPUSCULAR HGB CONC 33.2 % (32.0-36.0); MONO % 3.2 % (0.0-8.0); NEUT % 93.4 % (16.0-70.0); PLATELET COUNT 114 TH/MM3 (150-450); RED BLOOD COUNT 4.91 MIL/MM3 (4.50-5.90); RED CELL DISTRIBUTION WIDTH 15.6 % (11.6-17.2); WHITE BLOOD COUNT 10.1 TH/MM3 (4.0-11.0)
[2016-09-26 06:37] LABS: BICARBONATE 31.3 MEQ/L (21.0-32.0); POTASSIUM 4.1 MEQ/L (3.5-5.1)
[2016-09-26] MEDS: RESP: ALBUTEROL 2.5 MG/IPRATROPIUM 0.5 MG NEB (SCH) NEB ×3 (08:06→20:48)
[2016-09-26] MEDS: FUROSEMIDE 40 MG TAB PO SCH ×2 (08:36→21:36)
[2016-09-26] MEDS: PANTOPRAZOLE SOD 40 MG DELAYED RELEASE TAB PO SCH (08:36)
[2016-09-26] MEDS: guaiFENesin E.R. 600 MG TAB PO SCH ×2 (08:36→21:35)
[2016-09-26] MEDS: DIGOXIN 0.125 MG TAB PO SCH (08:36)
[2016-09-26] MEDS: methylPREDNISolone SOD SUCC 40 MG/1 ML VIAL IV PUSH SCH ×2 (08:37→21:36)
[2016-09-26] MEDS: AMIODARONE 200 MG TAB PO SCH (08:37)
[2016-09-26] MEDS: FINASTERIDE 5 MG TAB PO SCH (08:37)
[2016-09-26] MEDS: CARVEDILOL 3.125 MG TAB PO SCH ×2 (08:37→21:36)
[2016-09-26] MEDS: RAMIPRIL 5 MG CAP PO SCH (08:37)
[2016-09-26] MEDS: SODIUM CHLORIDE 0.9% FLUSH 5 ML FLUSH FLUSH SCH ×2 (08:38→21:39)
--- NOTE | 2016-09-26 10:33 | HHI.PR ---
Subjective Remarks Patient with sob, says however he is improving. Still require high O2. + cough but not much sputum . No fever or chills. Objective Vitals Vital Signs Date Time Temp Pulse Resp B/P Pulse Ox O2 Delivery O2 Flow Rate FiO2 09/26/16 08:06 97 Venturi Mask 6.00 50 09/26/16 08:06 97.8 76 16 128/81 89 09/26/16 07:30 Venturi Mask 6.00 09/26/16 04:00 97.3 82 22 122/81 95 09/26/16 01:51 Venturi Mask 6.00 09/26/16 00:26 70 124/81 93 09/26/16 00:08 70 09/26/16 00:00 97.2 72 22 123/78 94 09/25/16 20:30 96 Nasal Cannula 5.00 09/25/16 20:00 97.7 70 22 123/72 94 09/25/16 19:29 93 Venturi Mask 6.00 50 09/25/16 16:00 97.3 71 18 118/76 92 09/25/16 13:19 5.00 09/25/16 12:00 98.2 69 19 110/65 93 I/O 09/25/16 09/25/16 09/25/16 09/26/16 09/26/16 09/26/16 07:00 15:00 23:00 07:00 15:00 23:00 Intake Total 220 ml 960 ml 560 ml Output Total 900 ml 2000 ml 3600 ml Balance -680 ml -1040 ml -3040 ml Intake Oral 220 ml 960 ml 560 ml Output Urine Total 900 ml 2000 ml 3600 ml # Bowel Movements 0 0 0 Result Diagram: 09/26/16 0438 09/26/16 0438 Imaging Last Impressions Chest X-Ray 09/23/16 0003 Signed Impressions: Service Date/Time: Friday, September 23, 2016 00:13 - CONCLUSION: Increasing consolidation left lower lobe and new patchy infiltrates in the central lungs bilaterally. Yoel Mathur MD Objective Remarks GENERAL: This is a pleasant patient that is short of breath. SKIN: No rashes, ecchymoses or lesions. Cool,dry and pale. HEAD: Atraumatic. Normocephalic. EYES: Pupils equal round and reactive. Extraocular motions intact. No scleral icterus. No injection or drainage. ENT: Nose without bleeding, purulent drainage or septal hematoma. Airway patent. Dusky pale lips NECK: Trachea midline. No JVD CARDIOVASCULAR: Paced rate and rhythm without murmurs, gallops, or rubs. Pacemaker currently adjacent to left nipple. +2 pitting edema in bilateral lower extremities RESPIRATORY: Breath sounds diminished throughout, worse on left lower lobe. GASTROINTESTINAL: Abdomen soft, non-tender, nondistended. No guarding. MUSCULOSKELETAL: Bilateral lower extremity +2 edema. No joint tenderness, effusion, or edema noted. No calf tenderness. NEUROLOGICAL: Awake and alert. Cranial nerves II through XII intact. Motor and sensory grossly within normal limits. Five out of 5 muscle strength in all muscle groups. Normal speech. A/P Problem List: (1) Pneumonia ICD Code: J18.9 Status: Acute (2) Complications, pacemaker cardiac, mechanical ICD Code: T82.111A Status: Acute (3) HTN (hypertension) ICD Code: I10 Status: Chronic (4) Atrial fibrillation ICD Code: I48.91 Status: Chronic (5) CHF (congestive heart failure) ICD Code: I50.9 Status: Acute (6) MIRIAM (acute kidney injury) ICD Code: N17.9 Status: Acute (7) Hyperlipidemia ICD Code: E78.5 Status: Chronic Assessment and Plan 81-year-old male with a history of A. fib, dyslipidemia, hypertension, CHF and a pacemaker presented with: Pneumonia Chest x-ray shows left lower lobe consolidation and patchy infiltrates within the central lobes. -DuoNeb's every 6H -Azithromycin IV and Rocephin IV (started 09/24) -Sputum culture normal respiratory brianne, urine negative for Legionella and pneumococcal - Blood cultures neg x 2 days - Mucinex - Solumedrol 125 x1 in ED, solumedrol change to prednisone, taper down with improved respiratory status - Acappella and incentive spirometry - Add mucomyst to nebs Complications with pacemaker -Consult cardiology. Seen by Dr Davis, who evaluated the patient and no signs of infection, scar is healing well , no any intervention recommended, will follow as PRN. Recommends treating PNA. Acute kidney injury Labs: Creatinine 1.25 (improving from admission) baseline 1.1 -Trend BMP -Avoid nephrotoxic drugs CHF exacerbation Labs: BNP 1491, 1159 - Did not see ECHO in EMR, ordered - S/P 40 mg Lasix IV given in ED, additional 60 mg IV 09/24 given - S/P Lasix 80 mg PO BID, switched to home dose 40 mg PO BID today - KCl 40 meq daily - Good urine output Hypertension, chronic, currently stable -Home medications: coreg 3.125 mg BID, ramipril 5 mg A. fib, chronic -Monitor telemetry -Home medications: Digoxin, Amiodarone, and Coumadin BPH - cont home finasteride and flomax DVT prophylaxis: therapeutic on Coumadin Discharge Planning Patient on 6L ventimask, wean off O2 , discharge when improved Problem Qualifiers (1) CHF (congestive heart failure): Qualified Code: I50.9 - Congestive heart failure, unspecified congestive heart failure chronicity, unspecified congestive heart failure type Madisyn Aquino MD Sep 26, 2016 10:33
--- NOTE | 2016-09-26 12:54 | EC ---
Study Study Date:09/26/2016 STUDY CONCLUSIONS SUMMARY - Left ventricle: The cavity size was moderately dilated. Wall thickness was normal. Systolic function was severely reduced. The estimated ejection fraction was in the range of 20% to 25%. Diffuse hypokinesis. - Aortic valve: Trace regurgitation. Valve area: 2.91cm^2 (Vmax). - Tricuspid valve: Mild regurgitation. - Pulmonary arteries: PA peak pressure: 31mm Hg (S). If LV function is below 40, please consider prescribing an ACEI or ARB or document rationale for non-use. PROCEDURE DATA STUDY STATUS: Elective. Procedure: Transthoracic echocardiography. Image quality was good. Scanning was performed from the parasternal, apical, and subcostal acoustic windows. Study completion: The patient tolerated the procedure well. Transthoracic echocardiography. M-mode, complete 2D, complete spectral Doppler, and color Doppler. Patient status: Inpatient. CARDIAC ANATOMY LEFT VENTRICLE: The cavity size was moderately dilated. Wall thickness was normal. Systolic function was severely reduced. The estimated ejection fraction was in the range of 20% to 25%. Diffuse hypokinesis. AORTIC VALVE: Trileaflet; mildly thickened, mildly calcified leaflets. Doppler: Transvalvular velocity was within the normal range. There was no stenosis. Trace regurgitation. Valve area: 2.91cm^2 (Vmax). AORTA: Aortic root: The aortic root was normal in size. MITRAL VALVE: Structurally normal valve. Doppler: Transvalvular velocity was within the normal range. There was no evidence for stenosis. No regurgitation. LEFT ATRIUM: The atrium was normal in size. RIGHT VENTRICLE: The cavity size was normal. Wall thickness was normal. PULMONIC VALVE: Doppler: Transvalvular velocity was within the normal range. There was no evidence for stenosis. No regurgitation. TRICUSPID VALVE: Structurally normal valve. Doppler: Transvalvular velocity was within the normal range. Mild regurgitation. PULMONARY ARTERY: Not visualized. Systolic pressure was within the normal range. RIGHT ATRIUM: The atrium was normal in size. Pacer wire or catheter noted in right atrium. PERICARDIUM: There was no pericardial effusion. SYSTEMIC VEINS: Inferior vena cava: The vessel was mildly dilated. BASIC MEASUREMENTS ADULT Normal Left ventricle LV internal dimension, ED, chordal level, *65.4 mm 43-52 PLAX LV internal dimension, ES, chordal level, *56.5 mm 23-38 PLAX Fractional shortening, chordal level, PLAX *14 % >29 LV posterior wall thickness, ED 9.7 mm IVS/LVPW ratio, ED 1.03 <1.3 Ventricular septum Septal thickness, ED 9.97 mm Aortic valve Leaflet separation 23 mm 15-26 BASIC MEASUREMENTS ADULT Normal Aortic valve Leaflet separation 23 mm 15-26 Aorta Root diameter, ED *38 mm 20-37 Left atrium Anterior-posterior dimension, ES *42 mm 19-40 LA/aortic root ratio 1.11 DOPPLER MEASUREMENTS ADULT Normal Main pulmonary artery Pressure, S *31 mm Hg =30 Aortic valve Peak velocity, S 145 cm/s Valve area, Vmax 2.91 cm^2 Regurgitant velocity, ED 233 cm/s Regurgitant deceleration 712 cm/s^2 Regurgitant pressure half-time 960 ms Regurgitant gradient, ED 22 mm Hg Mitral valve Maximal regurgitant velocity 305 cm/s Tricuspid valve Regurgitant peak velocity 212 cm/s Peak RV-RA gradient, S 18 mm Hg Maximal regurgitant velocity 212 cm/s Systemic veins Estimated CVP 10 mm Hg Right ventricle RV pressure, S *35 mm Hg <30 Pulmonic valve Peak velocity, S 95 cm/s LEGEND: Mean values are shown as u=mean value. Asterisk (*) arizmendi values outside specified normal range. Prepared and signed by Tal Alberto [id number]
[2016-09-26] MEDS: WARFARIN SOD 4 MG TAB PO SCH (16:42)
[2016-09-26] MEDS: TAMSULOSIN HCL 0.4 MG CAP PO SCH (21:35)
[2016-09-26] MEDS: ATORVASTATIN 40 MG TAB PO SCH (21:35)
[2016-09-26] MEDS: POTASSIUM CHLORIDE 10 MEQ CONTROLLED RELEASE TAB PO SCH (21:35)
--- NOTE | 2016-09-26 21:57 | MB ---
cc: PAUL MILLER M.D. DATE OF CONSULTATION 09/26/2016 REASON FOR CONSULTATION Respiratory failure. HISTORY OF PRESENT ILLNESS Mr. Dias an 81-year-old male admitted with increasing shortness of breath. He has known history of congestive heart failure, cardiomyopathy of severe degree. He has history of atrial fibrillation, hyperlipidemia, coronary artery disease. He has a long heavy smoking history, stopped smoking a few weeks ago and likely underlying COPD as well. PAST MEDICAL HISTORY Essentially as outlined above. 1. He as well has known history of benign prostatic hypertrophy. 2. As well as PSA elevation. 3. Abdominal aortic aneurysm repair. 4. DVT, PE by history. 5. Peptic ulcer disease. 6. Cardiac stent in place. 7. As well as pacemaker. SOCIAL HISTORY Long, heavy smoking history, a pack a day over 50 years, continues to smoke. MEDICATIONS AT HOME 1. Coumadin. 2. Ciprofloxacin. 3. Aldactone. 4. Potassium. 5. Lasix. 6. Proscar. 7. Carvedilol. 8. Pantoprazole. 9. Ramipril. 10. Atorvastatin. 11. Tamsulosin. 12. Digoxin. 13. Presently on oxygen via nasal cannula. ALLERGIES PENICILLIN. FAMILY HISTORY Noncontributory. REVIEW OF SYSTEMS A 12-point review of systems as per HPI and past history otherwise negative. PHYSICAL EXAMINATION VITAL SIGNS: On examination temperature 97, pulse 70, respirations 18, blood pressure 120/70. Oxygen saturation 94% on 50% inspired oxygen fraction. HEENT: Exam unremarkable. Eyes without icterus. NECK: Without adenopathy, thyroid enlargement. CHEST: Scattered rhonchi left lung base. CARDIOVASCULAR: Exam PMI not appreciated. Irregularity noted. ABDOMEN: Lax. Bowel sounds audible. EXTREMITIES: No clubbing, cyanosis. 1+ edema. LABORATORY DATA White count 10,000, hemoglobin 15, hematocrit 46, platelets 114,000. Blood gas September 23, 2016 pH 7.40, PCO2 43, and pO2 of 59 on 4 liters oxygen nasal cannula. INR 3.3. Sodium 139, potassium 4.1, BUN 30, creatinine 1.1. IMAGING Chest x-ray, a left lower lung pneumonia. Central prominence. IMPRESSION 1. Left lower lobe pneumonia. 2. Ischemic cardiomyopathy with severe reduction in ejection fraction. 3. Probable COPD. 4. Respiratory failure on oxygen therapy. 5. Coronary artery disease. 6. Status post pacemaker insertion. PLAN The patient will be maintained on oxygen therapy as needed. Bronchodilator therapy would be appropriate. He is on antibiotic therapy and appropriately so. Chest x-ray will be followed. If need be and if pneumonia persists or worsens, bronchoscopic examination would be appropriate for possible underlying malignancy given the patient's long smoking history. I do thank you for asking me to partake in Mr. Dias's care. Paul Miller MD [id number]/YARITZA /4:27 PM /9:47 PM
[2016-09-27] VITALS (11 sets, daily range): BP systolic 111–130; BP diastolic 67–79; PULSE 69–72; RESP 18; TEMP 97–98.1; O2SAT 92–99
[2016-09-27] MEDS: cefTRIAXone INJ 1,000 MG in SODIUM CHLORIDE 0.9% INJ 100 ML IV SCH (03:36)
[2016-09-27] MEDS: AZITHROMYCIN INJ 500 MG in SODIUM CHLOR 0.9% 250 ML INJ 250 ML IV SCH (04:56)
[2016-09-27] MEDS: RESP: ALBUTEROL 2.5 MG/IPRATROPIUM 0.5 MG NEB (PRN) NEB (07:39)
--- NOTE | 2016-09-27 07:43 | HHI.PR ---
Subjective Remarks + SOB. Less sputum, still require O2 by venti mask. Plan for bronch if not improved per pulm. No fever or chills/ Feels tired. Objective Vitals Vital Signs Date Time Temp Pulse Resp B/P Pulse Ox O2 Delivery O2 Flow Rate FiO2 09/27/16 04:55 97.1 70 18 130/74 95 09/27/16 00:08 97.2 69 18 125/73 95 09/26/16 21:18 97.1 71 18 124/71 95 09/26/16 20:50 97 Venturi Mask 35 09/26/16 20:00 Venturi Mask 6.00 09/26/16 20:00 70 09/26/16 16:10 97.0 70 18 106/60 92 09/26/16 12:08 96.7 71 19 126/76 94 09/26/16 08:06 97 Venturi Mask 6.00 50 09/26/16 08:06 97.8 76 16 128/81 89 09/26/16 08:00 69 I/O 09/26/16 09/26/16 09/26/16 09/27/16 09/27/16 09/27/16 07:00 15:00 23:00 07:00 15:00 23:00 Intake Total 560 ml 480 ml 360 ml 240 ml Output Total 3600 ml 500 ml 550 ml 1250 ml Balance -3040 ml -20 ml -190 ml -1010 ml Intake Oral 560 ml 480 ml 360 ml 240 ml Output Urine Total 3600 ml 500 ml 550 ml 1250 ml # Bowel Movements 0 0 1 0 Result Diagram: 09/26/16 0438 09/26/16 0438 Imaging Last Impressions Chest X-Ray 09/23/16 0003 Signed Impressions: Service Date/Time: Friday, September 23, 2016 00:13 - CONCLUSION: Increasing consolidation left lower lobe and new patchy infiltrates in the central lungs bilaterally. Yoel Mathur MD Objective Remarks GENERAL: This is a pleasant patient that is short of breath. SKIN: No rashes, ecchymoses or lesions. Cool,dry and pale. HEAD: Atraumatic. Normocephalic. EYES: Pupils equal round and reactive. Extraocular motions intact. No scleral icterus. No injection or drainage. ENT: Nose without bleeding, purulent drainage or septal hematoma. Airway patent. Dusky pale lips NECK: Trachea midline. No JVD CARDIOVASCULAR: Paced rate and rhythm without murmurs, gallops, or rubs. Pacemaker currently adjacent to left nipple. +2 pitting edema in bilateral lower extremities RESPIRATORY: Breath sounds diminished throughout, worse on left lower lobe. GASTROINTESTINAL: Abdomen soft, non-tender, nondistended. No guarding. MUSCULOSKELETAL: Bilateral lower extremity +2 edema. No joint tenderness, effusion, or edema noted. No calf tenderness. NEUROLOGICAL: Awake and alert. Cranial nerves II through XII intact. Motor and sensory grossly within normal limits. Five out of 5 muscle strength in all muscle groups. Normal speech. A/P Problem List: (1) Pneumonia ICD Code: J18.9 Status: Acute (2) Complications, pacemaker cardiac, mechanical ICD Code: T82.111A Status: Acute (3) HTN (hypertension) ICD Code: I10 Status: Chronic (4) Atrial fibrillation ICD Code: I48.91 Status: Chronic (5) CHF (congestive heart failure) ICD Code: I50.9 Status: Acute (6) MIRIAM (acute kidney injury) ICD Code: N17.9 Status: Acute (7) Hyperlipidemia ICD Code: E78.5 Status: Chronic Assessment and Plan 81-year-old male with a history of A. fib, dyslipidemia, hypertension, CHF and a pacemaker presented with: Pneumonia Chest x-ray shows left lower lobe consolidation and patchy infiltrates within the central lobes. -DuoNeb's every 6H -Azithromycin IV and Rocephin IV (started 09/24) -Sputum culture normal respiratory brianne, urine negative for Legionella and pneumococcal - Blood cultures neg x 2 days - Mucinex - Solumedrol 125 x1 in ED, solumedrol changed to prednisone, continue to taper down as tolerated - Acappella and incentive spirometry - Add mucomyst to nebs - Consult pulm. Seen by Dr Vo appreciate recommendations. Repeat CXR. Poss bronchoscopy if doesn't improve to r/o malignancy as patient has h/o smoking. Complications with pacemaker -Consult cardiology. Seen by Dr Davis, who evaluated the patient and no signs of infection, scar is healing well , no any intervention recommended, will follow as PRN. Recommends treating PNA. Acute kidney injury Labs: Creatinine 1.25 (improving from admission) baseline 1.1 -Trend BMP -Avoid nephrotoxic drugs CHF exacerbation Labs: BNP 1491, 1159 - Did not see ECHO in EMR, ordered - S/P 40 mg Lasix IV given in ED, additional 60 mg IV 09/24 given - S/P Lasix 80 mg PO BID, switched to home dose 40 mg PO BID today - KCl 40 meq daily - Good urine output Hypertension, chronic, currently stable -Home medications: coreg 3.125 mg BID, ramipril 5 mg A. fib, chronic -Monitor telemetry -Home medications: Digoxin, Amiodarone, and Coumadin BPH - cont home finasteride and flomax DVT prophylaxis: therapeutic on Coumadin Discharge Planning Patient on ventimask, wean off O2, discharge when improved and cleared by pulm. Problem Qualifiers (1) CHF (congestive heart failure): Qualified Code: I50.9 - Congestive heart failure, unspecified congestive heart failure chronicity, unspecified congestive heart failure type Madisyn Aquino MD Sep 27, 2016 07:43
[2016-09-27 07:46] LABS: AUTOMATED NEUTROPHIL # 8.5 TH/MM3 (1.8-7.7); BASOPHIL % 0.2 % (0.0-2.0); HEMATOCRIT 48.6 % (39.0-51.0); HEMO FLAGS DIFF FINAL; LYMPH % 3.5 % (9.0-44.0); LYMPHOCYTE # 0.3 TH/MM3 (1.0-4.8); MEAN CELL VOLUME 93.9 FL (80.0-100.0); MEAN CORPUSCULAR HEMOGLOBIN 30.9 PG (27.0-34.0); MEAN CORPUSCULAR HGB CONC 32.9 % (32.0-36.0); NEUT % 92.3 % (16.0-70.0); PLATELET COUNT 112 TH/MM3 (150-450); RED BLOOD COUNT 5.18 MIL/MM3 (4.50-5.90); RED CELL DISTRIBUTION WIDTH 15.4 % (11.6-17.2); WHITE BLOOD COUNT 9.2 TH/MM3 (4.0-11.0)
[2016-09-27 08:02] LABS: BICARBONATE 37.8 MEQ/L (21.0-32.0); POTASSIUM 4.2 MEQ/L (3.5-5.1)
[2016-09-27] MEDS: guaiFENesin E.R. 600 MG TAB PO SCH ×2 (08:27→20:55)
[2016-09-27] MEDS: PANTOPRAZOLE SOD 40 MG DELAYED RELEASE TAB PO SCH (08:27)
[2016-09-27] MEDS: FUROSEMIDE 40 MG TAB PO SCH ×2 (08:27→20:56)
[2016-09-27] MEDS: SODIUM CHLORIDE 0.9% FLUSH 5 ML FLUSH FLUSH SCH ×2 (08:27→20:56)
[2016-09-27] MEDS: methylPREDNISolone SOD SUCC 40 MG/1 ML VIAL IV PUSH SCH ×2 (08:27→20:55)
[2016-09-27] MEDS: FINASTERIDE 5 MG TAB PO SCH (08:28)
[2016-09-27] MEDS: CARVEDILOL 3.125 MG TAB PO SCH ×2 (08:28→20:56)
[2016-09-27] MEDS: RAMIPRIL 5 MG CAP PO SCH (08:28)
[2016-09-27] MEDS: DIGOXIN 0.125 MG TAB PO SCH (08:28)
[2016-09-27] MEDS: AMIODARONE 200 MG TAB PO SCH (08:28)
[2016-09-27 08:55] LABS: INTERNATIONAL NORMALIZED RATIO 2.5 RATIO; PROTHROMBIN TIME - PATIENT 29.2 SEC (9.8-11.6)
[2016-09-27] MEDS: WARFARIN SOD 4 MG TAB PO SCH (15:34)
--- NOTE | 2016-09-27 17:20 | RADRPT ---
EXAM DATE/TIME: 09/27/2016 17:08 [facility] COMPARISON: CHEST SINGLE AP, September 23, 2016, 0:13. INDICATIONS : Shortness of breath. MEDICAL HISTORY : None. SURGICAL HISTORY : Pacemaker. ENCOUNTER: Subsequent ACUITY: 4 - 6 days PAIN SCORE: 0/10 LOCATION: Bilateral chest FINDINGS: The heart is enlarged. A left subclavian dual lead pacemaker has its tips in the right atrium and ri ght ventricle. There is no pneumothorax. There is increased aeration of the lungs compared to the pr evious examination. CONCLUSION: 1. Improved aeration of the lungs compared to the previous examination. 2. Cardiomegaly. Domenico Machado MD on September 27, 2016 at 17:16 Board Certified Radiologist. This report was verified electronically.
[2016-09-27 17:38] LABS: INTERNATIONAL NORMALIZED RATIO 2.6 RATIO; PROTHROMBIN TIME - PATIENT 30.5 SEC (9.8-11.6)
[2016-09-27] MEDS: ATORVASTATIN 40 MG TAB PO SCH (20:55)
[2016-09-27] MEDS: POTASSIUM CHLORIDE 10 MEQ CONTROLLED RELEASE TAB PO SCH (20:56)
[2016-09-27] MEDS: TAMSULOSIN HCL 0.4 MG CAP PO SCH (20:56)
[2016-09-28] VITALS (8 sets, daily range): BP systolic 124–151; BP diastolic 71–84; PULSE 69–73; RESP 16–18; TEMP 97.1–97.9; O2SAT 93–98
[2016-09-28] MEDS: cefTRIAXone INJ 1,000 MG in SODIUM CHLORIDE 0.9% INJ 100 ML IV SCH (03:50)
[2016-09-28] MEDS: AZITHROMYCIN INJ 500 MG in SODIUM CHLOR 0.9% 250 ML INJ 250 ML IV SCH (04:29)
[2016-09-28 07:13] LABS: AUTOMATED NEUTROPHIL # 9.6 TH/MM3 (1.8-7.7); BASOPHIL % 0.1 % (0.0-2.0); EOSINOPHIL % 0.1 % (0.0-4.0); HEMATOCRIT 49.6 % (39.0-51.0); HEMO FLAGS DIFF FINAL; LYMPH % 2.5 % (9.0-44.0); LYMPHOCYTE # 0.3 TH/MM3 (1.0-4.8); MEAN CELL VOLUME 93.5 FL (80.0-100.0); MEAN CORPUSCULAR HEMOGLOBIN 30.7 PG (27.0-34.0); MEAN CORPUSCULAR HGB CONC 32.9 % (32.0-36.0); MONO % 4.1 % (0.0-8.0); NEUT % 93.2 % (16.0-70.0); PLATELET COUNT 114 TH/MM3 (150-450); RED CELL DISTRIBUTION WIDTH 15.5 % (11.6-17.2); WHITE BLOOD COUNT 10.4 TH/MM3 (4.0-11.0)
[2016-09-28 07:27] LABS: PROTHROMBIN TIME - PATIENT 34.8 SEC (9.8-11.6)
[2016-09-28 07:38] LABS: BICARBONATE 33.7 MEQ/L (21.0-32.0); POTASSIUM 4.6 MEQ/L (3.5-5.1)
[2016-09-28] MEDS: methylPREDNISolone SOD SUCC 40 MG/1 ML VIAL IV PUSH SCH ×2 (08:49→20:37)
[2016-09-28] MEDS: SODIUM CHLORIDE 0.9% FLUSH 5 ML FLUSH FLUSH SCH ×2 (08:49→20:38)
[2016-09-28] MEDS: guaiFENesin E.R. 600 MG TAB PO SCH ×2 (08:50→20:37)
[2016-09-28] MEDS: FINASTERIDE 5 MG TAB PO SCH (08:50)
[2016-09-28] MEDS: RAMIPRIL 5 MG CAP PO SCH (08:50)
[2016-09-28] MEDS: AMIODARONE 200 MG TAB PO SCH (08:50)
[2016-09-28] MEDS: PANTOPRAZOLE SOD 40 MG DELAYED RELEASE TAB PO SCH (08:50)
[2016-09-28] MEDS: CARVEDILOL 3.125 MG TAB PO SCH ×2 (08:50→20:41)
[2016-09-28] MEDS: DIGOXIN 0.125 MG TAB PO SCH (08:50)
[2016-09-28] MEDS: FUROSEMIDE 40 MG TAB PO SCH ×2 (08:50→20:38)
--- NOTE | 2016-09-28 10:27 | HHI.PR ---
Subjective Remarks Feesl the same with sob. Still on venti mask. Denies cp, n/v/d/c. Not coughing much up. Plan for bronch Objective Vitals Vital Signs Date Time Temp Pulse Resp B/P Pulse Ox O2 Delivery O2 Flow Rate FiO2 09/28/16 09:19 73 09/28/16 08:45 Venturi Mask 6.00 40 09/28/16 08:00 70 16 151/84 95 09/28/16 04:34 97.1 70 18 126/71 98 09/27/16 23:35 97.1 70 18 124/79 94 09/27/16 20:44 97.0 70 18 126/77 95 09/27/16 20:00 69 09/27/16 20:00 Venturi Mask 6.00 09/27/16 17:52 94 Venturi Mask 6.00 40 09/27/16 16:07 98.0 72 18 111/67 99 09/27/16 12:07 98.1 70 18 123/71 94 I/O 09/27/16 09/27/16 09/27/16 09/28/16 09/28/16 09/28/16 07:00 15:00 23:00 07:00 15:00 23:00 Intake Total 240 ml 482 ml 480 ml 0 ml Output Total 1250 ml 1000 ml 525 ml 1100 ml Balance -1010 ml -518 ml -45 ml -1100 ml Intake Oral 240 ml 480 ml 480 ml 0 ml IV Total 2 ml Output Urine Total 1250 ml 1000 ml 525 ml 1100 ml # Bowel Movements 0 0 0 0 Result Diagram: 09/28/16 0649 09/28/16 0649 Imaging Last Impressions Chest X-Ray 09/27/16 0000 Signed Impressions: Service Date/Time: Tuesday, September 27, 2016 17:08 - CONCLUSION: 1. Improved aeration of the lungs compared to the previous examination. 2. Cardiomegaly. Domenico Machado MD Objective Remarks GENERAL: This is a pleasant patient that is short of breath. SKIN: No rashes, ecchymoses or lesions. Cool,dry and pale. HEAD: Atraumatic. Normocephalic. EYES: Pupils equal round and reactive. Extraocular motions intact. No scleral icterus. No injection or drainage. ENT: Nose without bleeding, purulent drainage or septal hematoma. Airway patent. Dusky pale lips NECK: Trachea midline. No JVD CARDIOVASCULAR: Paced rate and rhythm without murmurs, gallops, or rubs. Pacemaker currently adjacent to left nipple. +2 pitting edema in bilateral lower extremities RESPIRATORY: Breath sounds diminished throughout, worse on left lower lobe. GASTROINTESTINAL: Abdomen soft, non-tender, nondistended. No guarding. MUSCULOSKELETAL: Bilateral lower extremity +2 edema. No joint tenderness, effusion, or edema noted. No calf tenderness. NEUROLOGICAL: Awake and alert. Cranial nerves II through XII intact. Motor and sensory grossly within normal limits. Five out of 5 muscle strength in all muscle groups. Normal speech. A/P Problem List: (1) Pneumonia ICD Code: J18.9 Status: Acute (2) Complications, pacemaker cardiac, mechanical ICD Code: T82.111A Status: Acute (3) HTN (hypertension) ICD Code: I10 Status: Chronic (4) Atrial fibrillation ICD Code: I48.91 Status: Chronic (5) CHF (congestive heart failure) ICD Code: I50.9 Status: Acute (6) IMRIAM (acute kidney injury) ICD Code: N17.9 Status: Acute (7) Hyperlipidemia ICD Code: E78.5 Status: Chronic Assessment and Plan 81-year-old male with a history of A. fib, dyslipidemia, hypertension, CHF and a pacemaker presented with: Pneumonia Chest x-ray shows left lower lobe consolidation and patchy infiltrates within the central lobes. -DuoNeb's every 6H -Azithromycin IV and Rocephin IV (started 09/24) -Sputum culture normal respiratory brianne, urine negative for Legionella and pneumococcal - Blood cultures neg x 2 days - Mucinex - Solumedrol 125 x1 in ED, solumedrol changed to prednisone, continue to taper down as tolerated - Acappella and incentive spirometry - Add mucomyst to nebs - Consult pulm. Seen by Dr Vo appreciate recommendations. Repeat CXR. Poss bronchoscopy if doesn't improve to r/o malignancy as patient has h/o smoking. - Discussed with Dr Quinteros plan for bronch Complications with pacemaker -Consult cardiology. Seen by Dr Davis, who evaluated the patient and no signs of infection, scar is healing well , no any intervention recommended, will follow as PRN. Recommends treating PNA. Acute kidney injury Labs: Creatinine 1.25 (improving from admission) baseline 1.1 -Trend BMP -Avoid nephrotoxic drugs CHF exacerbation Labs: BNP 1491, 1159 - Did not see ECHO in EMR, ordered - S/P 40 mg Lasix IV given in ED, additional 60 mg IV 09/24 given - S/P Lasix 80 mg PO BID, switched to home dose 40 mg PO BID today - KCl 40 meq daily - Good urine output Hypertension, chronic, currently stable -Home medications: coreg 3.125 mg BID, ramipril 5 mg A. fib, chronic -Monitor telemetry -Home medications: Digoxin, Amiodarone, and Coumadin BPH - cont home finasteride and flomax DVT prophylaxis: therapeutic on Coumadin Discharge Planning Patient on ventimask, wean off O2, discharge when improved and cleared by pulm. Problem Qualifiers (1) CHF (congestive heart failure): Qualified Code: I50.9 - Congestive heart failure, unspecified congestive heart failure chronicity, unspecified congestive heart failure type Madisyn Aquino MD Sep 28, 2016 10:27
[2016-09-28] MEDS: WARFARIN SOD 3 MG TAB PO SCH (15:19)
[2016-09-28] MEDS: ACETAMINOPHEN/CODEINE 300 MG/30 MG TAB PO PRN (20:38)
[2016-09-28] MEDS: POTASSIUM CHLORIDE 10 MEQ CONTROLLED RELEASE TAB PO SCH (20:38)
[2016-09-28] MEDS: TAMSULOSIN HCL 0.4 MG CAP PO SCH (20:38)
[2016-09-28] MEDS: ATORVASTATIN 40 MG TAB PO SCH (20:39)
[2016-09-29 00:19] VITALS: BP 124/79; PULSE 70; RESP 18; TEMP 98.2; O2SAT 94
[2016-09-29 04:00] VITALS: BP 123/74; PULSE 73; RESP 20; TEMP 98.1; O2SAT 95
[2016-09-29] MEDS: cefTRIAXone INJ 1,000 MG in SODIUM CHLORIDE 0.9% INJ 100 ML IV SCH (04:40)
[2016-09-29] MEDS: AZITHROMYCIN INJ 500 MG in SODIUM CHLOR 0.9% 250 ML INJ 250 ML IV SCH (04:40)
[2016-09-29] MEDS: ACETAMINOPHEN/CODEINE 300 MG/30 MG TAB PO PRN (04:41)
[2016-09-29 06:06] LABS: INTERNATIONAL NORMALIZED RATIO 2.7 RATIO; PROTHROMBIN TIME - PATIENT 31.3 SEC (9.8-11.6)
[2016-09-29 08:00] VITALS: BP 132/80; PULSE 69; PULSE 70; RESP 18; TEMP 97.2; O2SAT 96
[2016-09-29] MEDS: SODIUM CHLORIDE 0.9% FLUSH 5 ML FLUSH FLUSH SCH (08:23)
[2016-09-29] MEDS: methylPREDNISolone SOD SUCC 40 MG/1 ML VIAL IV PUSH SCH (08:23)
[2016-09-29] MEDS: RAMIPRIL 5 MG CAP PO SCH (08:23)
[2016-09-29] MEDS: DIGOXIN 0.125 MG TAB PO SCH (08:24)
[2016-09-29] MEDS: FUROSEMIDE 40 MG TAB PO SCH (08:24)
[2016-09-29] MEDS: AMIODARONE 200 MG TAB PO SCH (08:24)
[2016-09-29] MEDS: CARVEDILOL 3.125 MG TAB PO SCH (08:24)
[2016-09-29] MEDS: guaiFENesin E.R. 600 MG TAB PO SCH (08:25)
[2016-09-29] MEDS: FINASTERIDE 5 MG TAB PO SCH (08:25)
[2016-09-29] MEDS: PANTOPRAZOLE SOD 40 MG DELAYED RELEASE TAB PO SCH (08:25)
[2016-09-29 12:00] VITALS: BP 134/82; PULSE 66; RESP 20; TEMP 97.6; O2SAT 96
--- NOTE | 2016-09-29 12:36 | HHI.DCPOC ---
Discharge Care Plan Goals to Promote Your Health * To prevent worsening of your condition and complications * To maintain your health at the optimal level Directions to Meet Your Goals Take your medications as prescribed Follow your dietary instruction Follow activity as directed Keep your appointments as scheduled Take your immunizations and boosters as scheduled If your symptoms worsen call your PCP, if no PCP go to Urgent Care Center or Emergency Room Smoking is Dangerous to Your Health. Avoid second hand smoke Call the 24-hour hour crisis hotline for domestic abuse at Madisyn Aquino MD Sep 29, 2016 12:35
--- NOTE | 2016-09-29 12:38 | HHI.DS ---
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 fib, dyslipidemia, hypertension, CHF, CAD presented with complaints of shortness of breath, high blood pressure and sweating for one day. Patient states yesterday he just wasn't feeling good at home he had an elevated blood pressure of 135/103, increasing shortness of breath and diaphoretic skin. Patient also states he's been having some chest discomfort from his pacemaker he states about one week ago it started to move in different places on the left side of his chest. He states he was seen by his public works manager yesterday but nothing was changed with the pacemaker. He denies any fever or chills. Upon examination patient looks to be short of breath, with decreasing O2 sats to 89%, this is despite the 40 mg of Lasix given in the ED. Per the nurse patient has not voided much since the Lasix only about 300ml. Patient's public works manager is Dr. Davis. CBC/BMP: 09/28/16 0649 09/28/16 0649 Significant Findings Laboratory Tests Test 09/27/16 09/27/16 09/27/16 09/28/16 06:32 08:33 17:21 06:49 Platelet Count 112 TH/MM3 114 TH/MM3 (150-450) (150-450) Neutrophils (%) (Auto) 92.3 % 93.2 % (16.0-70.0) (16.0-70.0) Lymphocytes (%) (Auto) 3.5 % 2.5 % (9.0-44.0) (9.0-44.0) Neutrophils # (Auto) 8.5 TH/MM3 9.6 TH/MM3 (1.8-7.7) (1.8-7.7) Lymphocytes # (Auto) 0.3 TH/MM3 0.3 TH/MM3 (1.0-4.8) (1.0-4.8) Chloride Level 96 MEQ/L (98-107) Carbon Dioxide Level 37.8 MEQ/L 33.7 MEQ/L (21.0-32.0) (21.0-32.0) Anion Gap 3 MEQ/L (5-15) Blood Urea Nitrogen 36 MG/DL (7-18) 39 MG/DL (7-18) Estimat Glomerular Filtration 57 ML/MIN (>89) 59 ML/MIN (>89) Rate Random Glucose 140 MG/DL 143 MG/DL (74-106) (74-106) B-Type Natriuretic Peptide 532 PG/ML (0-100) Prothrombin Time 29.2 SEC 30.5 SEC 34.8 SEC (9.8-11.6) (9.8-11.6) (9.8-11.6) Calcium Level 8.4 MG/DL (8.5-10.1) Test 09/29/16 04:14 Prothrombin Time 31.3 SEC (9.8-11.6) Imaging Last Impressions Chest X-Ray 09/27/16 0000 Signed Impressions: Service Date/Time: Tuesday, September 27, 2016 17:08 - CONCLUSION: 1. Improved aeration of the lungs compared to the previous examination. 2. Cardiomegaly. Domenico Machado MD PE at Discharge GENERAL: This is a pleasant patient that is short of breath. SKIN: No rashes, ecchymoses or lesions. Cool,dry and pale. HEAD: Atraumatic. Normocephalic. EYES: Pupils equal round and reactive. Extraocular motions intact. No scleral icterus. No injection or drainage. ENT: Nose without bleeding, purulent drainage or septal hematoma. Airway patent. Dusky pale lips NECK: Trachea midline. No JVD CARDIOVASCULAR: Paced rate and rhythm without murmurs, gallops, or rubs. Pacemaker currently adjacent to left nipple. +2 pitting edema in bilateral lower extremities RESPIRATORY: Breath sounds diminished throughout, worse on left lower lobe. GASTROINTESTINAL: Abdomen soft, non-tender, nondistended. No guarding. MUSCULOSKELETAL: Bilateral lower extremity +2 edema. No joint tenderness, effusion, or edema noted. No calf tenderness. NEUROLOGICAL: Awake and alert. Cranial nerves II through XII intact. Motor and sensory grossly within normal limits. Five out of 5 muscle strength in all muscle groups. Normal speech. Pt update on day of discharge Feels much better satting well on 2L NC now. Refusing bronch. Patient says he had complications and chest tube placed before. He will consider later, and he will follow up with his pulm. Denies cp. SOB improved. Hospital Course 81-year-old male with a history of A. fib, dyslipidemia, hypertension, CHF and a pacemaker presented with: Pneumonia Chest x-ray shows left lower lobe consolidation and patchy infiltrates within the central lobes. -DuoNeb's every 6H -Azithromycin IV and Rocephin IV (started 09/24) -Sputum culture normal respiratory brianne, urine negative for Legionella and pneumococcal - Blood cultures neg x 2 days - Mucinex - Solumedrol 125 x1 in ED, solumedrol changed to prednisone, continue to taper down as tolerated - Acappella and incentive spirometry - Add mucomyst to nebs - Consult pulm. Seen by Dr Vo appreciate recommendations. Repeat CXR. Poss bronchoscopy if doesn't improve to r/o malignancy as patient has h/o smoking. - Discussed with Dr Quinteros plan for bronch. Patient however refused bronch. He is satting better now on 2L NC. - Repeat CXR with improvement in aeration. Complications with pacemaker -Consult cardiology. Seen by Dr Davis, who evaluated the patient and no signs of infection, scar is healing well , no any intervention recommended, will follow as PRN. Recommends treating PNA. Acute kidney injury Labs: Creatinine 1.25 (improving from admission) baseline 1.1 -Trend BMP -Avoid nephrotoxic drugs Systolic CHF with exacerbation Labs: BNP 1491, 1159 - ECHO with ED 20% - S/P 40 mg Lasix IV given in ED, additional 60 mg IV 09/24 given - S/P Lasix 80 mg PO BID, switched to home dose 40 mg PO BID - KCl 40 meq daily - Good urine output -Seen by Dr Davis considers PM is functioning. to follow up as OP with cardiology Hypertension, chronic, currently stable -Home medications: coreg 3.125 mg BID, ramipril 5 mg A. fib, chronic -Monitor telemetry -Home medications: Digoxin, Amiodarone, and Coumadin BPH - cont home finasteride and flomax Patient improved. Satting wel on 2L NC. Refused bronch. CXR with improvement in aeration. Discharged to SNF ( PO). Patient to follow up as OP with PCP and consultants. Pt Condition on Discharge: Fair Discharge Disposition: Discharge to SNF Discharge Time: > 30 minutes Discharge Instructions DIET: Follow Instructions for: Heart Healthy Diet Activities you can perform: Regular-No Restrictions Follow up Referrals: Cardiology - 1 Week PCP Follow-up - 3-5 Days Pulmonology - 3 Weeks New Medications: Prednisone (21) 10 mg tab Dose Pack (Prednisone (21) 10 mg tab Dose Pack) 10 Mg Pack 10 MG PO DIRECTED Inflammation #1 Ref 0 DSPK Tiotropium Inh (Spiriva Handihaler) 18 Mcg Cap 18 MCG INH DAILY 1 capsule = 18 mcg COPD #30 Ref 0 CAP Continued Medications: Acetaminophen-Codeine (Acetaminophen-Codeine) 300-30 mg Tab 2 TAB PO Q6HR PRN pain #30 Ref 0 TAB Amiodarone (Amiodarone) 200 Mg Tab 200 MG PO DAILY arrhythmia #30 Ref 3 TAB Atorvastatin (Atorvastatin) 40 Mg Tab 60 MG PO HS Cholesterol Management #30 Ref 0 TAB Carvedilol (Carvedilol) 3.125 Mg Tab 3.125 MG PO BID #60 Ref 0 TAB Ciprofloxacin (Ciprofloxacin) 500 Mg Tab 500 MG PO BID Infection Ref 0 TAB Digoxin (Digoxin) 0.125 Mg Tab 0.125 MG PO DAILY Regulate Heart Beat #30 Ref 0 TAB Finasteride (Proscar) 5 Mg Tab 5 MG PO DAILY Do not crush. Manage Prostate Problems #30 Ref 0 TAB Furosemide (Furosemide) 40 Mg Tab 40 MG PO BID #60 Ref 0 TAB Ipratropium-Albuterol Neb (Duoneb) 0.5-2.5 Mg/3 Ml Neb 1 AMPULE NEB Q4HR PRN SHORTNESS OF BREATH #0 ML Lorazepam (Lorazepam) 0.5 Mg Tab 0.5 MG PO Q12HR PRN ANXIETY #10 Ref 0 TAB (This prescription has been renewed) Pantoprazole (Pantoprazole) 40 Mg Tab 40 MG PO DAILY Reflux #30 Ref 0 TAB Potassium Chloride ER (K-Tab) 10 Meq Tab 10 MEQ PO HS Electrolyte Replacement #60 Ref 0 TAB Ramipril (Ramipril) 5 Mg Cap 5 MG PO DAILY #60 Ref 0 CAP Spironolactone (Spironolactone) 25 Mg Tab 25 MG PO DAILY #30 Ref 0 TAB Tamsulosin (Tamsulosin) 0.4 Mg Cap 0.4 MG PO HS Manage Prostate Problems #30 Ref 0 CAP Warfarin (Warfarin) 3 Mg Tab 3 MG PO SUN,WED Blood Clot Prevention #30 Ref 0 TAB Warfarin (Warfarin) 4 Mg Tab 4 MG PO mon,mon, ,sat Blood Clot Prevention #30 Ref 0 TAB Madisyn Aquino MD Sep 29, 2016 12:38
[2016-09-29] MEDS ORDERED: LORA-373 PO (12:39)
[2016-09-29] MEDS ORDERED: SPIRCAP INH (12:42)
[2016-09-29] MEDS ORDERED: PRED10PA PO (12:42)
[2016-09-29] MEDS: WARFARIN SOD 4 MG TAB PO SCH (15:30)
--- NOTE | 2016-09-29 15:53 | HHI.PR ---
Subjective Remarks In the chair. feeling much better. Denies cp. SOB at baseline. Refusing bronch. No fever or chills. Less cough. On 2L NC now satting better. Plan to Dc to SNF (PO per patient request) Objective Vitals Vital Signs Date Time Temp Pulse Resp B/P Pulse Ox O2 Delivery O2 Flow Rate FiO2 09/29/16 12:00 97.6 66 20 134/82 96 09/29/16 09:00 96 Nasal Cannula 2.00 09/29/16 08:00 69 09/29/16 08:00 97.2 70 18 132/80 96 09/29/16 04:00 98.1 73 20 123/74 95 09/29/16 00:19 98.2 70 18 124/79 94 09/28/16 21:41 Nasal Cannula 2.00 09/28/16 20:00 Nasal Cannula 2.00 40 09/28/16 20:00 69 09/28/16 18:45 97.9 69 18 130/82 94 09/28/16 16:00 97.7 71 16 124/81 94 I/O 09/28/16 09/28/16 09/28/16 09/29/16 09/29/16 09/29/16 07:00 15:00 23:00 07:00 15:00 23:00 Intake Total 0 ml 545 ml 280 ml 678 ml 500 ml Output Total 1100 ml 1000 ml 375 ml 800 ml 500 ml Balance -1100 ml -455 ml -95 ml -122 ml 0 ml Intake Oral 0 ml 540 ml 280 ml 320 ml 500 ml IV Total 5 ml 358 ml Output Urine Total 1100 ml 1000 ml 375 ml 800 ml 500 ml # Bowel Movements 0 0 0 Result Diagram: 09/28/16 0649 09/28/16 0649 Imaging Last Impressions Chest X-Ray 09/27/16 0000 Signed Impressions: Service Date/Time: Tuesday, September 27, 2016 17:08 - CONCLUSION: 1. Improved aeration of the lungs compared to the previous examination. 2. Cardiomegaly. Domenico Machado MD Objective Remarks GENERAL: This is a pleasant patient that is short of breath. SKIN: No rashes, ecchymoses or lesions. Cool,dry and pale. HEAD: Atraumatic. Normocephalic. EYES: Pupils equal round and reactive. Extraocular motions intact. No scleral icterus. No injection or drainage. ENT: Nose without bleeding, purulent drainage or septal hematoma. Airway patent. Dusky pale lips NECK: Trachea midline. No JVD CARDIOVASCULAR: Paced rate and rhythm without murmurs, gallops, or rubs. Pacemaker currently adjacent to left nipple. +2 pitting edema in bilateral lower extremities RESPIRATORY: Breath sounds diminished throughout, worse on left lower lobe. GASTROINTESTINAL: Abdomen soft, non-tender, nondistended. No guarding. MUSCULOSKELETAL: Bilateral lower extremity +2 edema. No joint tenderness, effusion, or edema noted. No calf tenderness. NEUROLOGICAL: Awake and alert. Cranial nerves II through XII intact. Motor and sensory grossly within normal limits. Five out of 5 muscle strength in all muscle groups. Normal speech. Procedures none A/P Problem List: (1) CHF (congestive heart failure) ICD Code: I50.9 Status: Acute (2) Pneumonia ICD Code: J18.9 Status: Acute (3) Complications, pacemaker cardiac, mechanical ICD Code: T82.111A Status: Acute (4) HTN (hypertension) ICD Code: I10 Status: Chronic (5) Atrial fibrillation ICD Code: I48.91 Status: Chronic (6) MIRIAM (acute kidney injury) ICD Code: N17.9 Status: Acute (7) Hyperlipidemia ICD Code: E78.5 Status: Chronic Assessment and Plan 81-year-old male with a history of A. fib, dyslipidemia, hypertension, CHF and a pacemaker presented with: Pneumonia Chest x-ray shows left lower lobe consolidation and patchy infiltrates within the central lobes. -DuoNeb's every 6H -Azithromycin IV and Rocephin IV (started 09/24) -Sputum culture normal respiratory brianne, urine negative for Legionella and pneumococcal - Blood cultures neg x 2 days - Mucinex - Solumedrol 125 x1 in ED, solumedrol changed to prednisone, continue to taper down as tolerated - Acappella and incentive spirometry - Add mucomyst to nebs - Consult pulm. Seen by Dr Vo appreciate recommendations. Repeat CXR. Poss bronchoscopy if doesn't improve to r/o malignancy as patient has h/o smoking. - Discussed with Dr Quinteros plan for bronch. Patient however refused bronch. He is satting better now on 2L NC. - Repeat CXR with improvement in aeration. Complications with pacemaker -Consult cardiology. Seen by Dr Davis, who evaluated the patient and no signs of infection, scar is healing well , no any intervention recommended, will follow as PRN. Recommends treating PNA. Acute kidney injury Labs: Creatinine 1.25 (improving from admission) baseline 1.1 -Trend BMP -Avoid nephrotoxic drugs CHF exacerbation Labs: BNP 1491, 1159 - Did not see ECHO in EMR, ordered - S/P 40 mg Lasix IV given in ED, additional 60 mg IV 09/24 given - S/P Lasix 80 mg PO BID, switched to home dose 40 mg PO BID today - KCl 40 meq daily - Good urine output Hypertension, chronic, currently stable -Home medications: coreg 3.125 mg BID, ramipril 5 mg A. fib, chronic -Monitor telemetry -Home medications: Digoxin, Amiodarone, and Coumadin BPH - cont home finasteride and flomax Patient improved. Satting wel on 2L NC. Refused bronch. CXR with improveem,nt in aeration. Discharged to SNF ( PO). Patient to follow up as OP with PCP and consultants. D Problem Qualifiers (1) CHF (congestive heart failure): Qualified Code: I50.9 - Congestive heart failure, unspecified congestive heart failure chronicity, unspecified congestive heart failure type Madisyn Aquino MD Sep 29, 2016 15:53
--- NOTE | 2016-09-30 16:16 | PQ ---
Physician Query Response Document PATIENT: CRISTIANO ROBERTSON : 1935 ADMIT DATE: 09/23/2016 3:14 AM DISCH DATE: 09/29/2016 4:18 PM RESPONDING PROVIDER #: [email or web address] QUERY TEXT: CHF Acuity and Type Congestive Heart Failure is documented in the Medical Record. Please document the type and acuity (in cludes probable or suspected) Such as: Type: -- Systolic -- Diastolic -- Combined -- Other, please specify Acuity: -- Acute -- Chronic -- Acute on chronic -- Other, please specify Also please document the underlying cause of the CHF (includes probable or suspected) The patient's Clinical Indicators include: BNP 09/23 1491 Lasix IV given and po BID 09/26/2016 ECHO Left ventricle is moderately dilated. Systolic function severely reduced. EJ fx 20 - 25% Diffuse Hypo kinesis Mild tricuspid regurg, trace aortic valve regurgitation PA pressure 31 mm Hg Query created by: Carmen Fraire on 09/27/2016 1:07 PM RESPONSE TEXT: Systolic CHF with EF of 20-25% Electronically signed by: Madisyn Aquino MD 09/29/2016 5:41 PM
== END 2016-09-29 16:18 | DRG 190 ==
LOC: NEPE 21:27 → NEDA 09-23 03:14 → NEDH 09-23 07:22 → N04A 09-23 19:19
PROVIDERS: ADMIT Hospitalist; ATTEND Hospitalist
DX: J44.0 Chronic obstructive pulmonary disease with (acute) lower respiratory infection (principal); J18.9 Pneumonia, unspecified organism; J96.01 Acute respiratory failure with hypoxia; I13.0 Hypertensive heart and chronic kidney disease with heart failure and stage 1 through stage 4 chronic kidney disease, or unspecified chronic kidney disease; I50.23 Acute on chronic systolic (congestive) heart failure; N17.9 Acute kidney failure, unspecified; T82.191A Other mechanical complication of cardiac pulse generator (battery), initial encounter; I48.2 Chronic atrial fibrillation; N18.3 Chronic kidney disease, stage 3 (moderate); I25.5 Ischemic cardiomyopathy; I25.10 Atherosclerotic heart disease of native coronary artery without angina pectoris; Z95.5 Presence of coronary angioplasty implant and graft; E78.5 Hyperlipidemia, unspecified; N40.0 Benign prostatic hyperplasia without lower urinary tract symptoms; Z79.01 Long term (current) use of anticoagulants; Z86.718 Personal history of other venous thrombosis and embolism; Z86.711 Personal history of pulmonary embolism; Z87.11 Personal history of peptic ulcer disease; H91.91 Unspecified hearing loss, right ear; K21.9 Gastro-esophageal reflux disease without esophagitis; I25.2 Old myocardial infarction; F17.290 Nicotine dependence, other tobacco product, uncomplicated
CPT/HCPCS: 36600; 71010; 76937; 80048; 80053; 81001; 82550; 82805; 83735; 83880; 84484; 85025; 85610; 85730; 87040; 87070; 87205; 87449; 93005; 93306; 94620; 94640; 94664; 94667; 94668; J0456; J0696; J1650; J1940; J2405; J2920; J2930; J7050

== ENCOUNTER 2017-02-22 11:55 | Inpatient (IN) | payer OTHER, MEDICARE ==
[~2017-02-22] VITALS: Ht 193 cm; Wt 93.8 kg
[2017-02-22] VITALS (9 sets, daily range): BP systolic 114–135; BP diastolic 72–90; PULSE 59–105; RESP 16–31; TEMP 97.4–98.5; O2SAT 87–94
[~2017-02-22 11:55] MED LIST changes: +CIPR500T2 PO; +PRED10PA PO; +SPIR25TA PO; +SPIRCAP INH
[2017-02-22] MEDS ORDERED: SODIUM CHLORIDE 0.9% FLUSH 10 ML FLUSH IVF PRN (12:15)
[2017-02-22] MEDS ORDERED: RESP: ALBUTEROL 2.5 MG/IPRATROPIUM 0.5 MG NEB (SCH) INH ONE (12:15)
[2017-02-22] MEDS ORDERED: methylPREDNISolone SOD SUCC 125 MG/2 ML VIAL IVP ONE (12:15)
--- NOTE | 2017-02-22 12:25 | PD ---
HPI Chief Complaint: Respiratory Distress Time Seen by Provider: 12:04 Travel History International Travel<30 days: No Contact w/Intl Traveler<30days: No Traveled to known affect area: No History of Present Illness HPI 81 y/o female presents with shortness of breath over the past couple of days. He states he is normally on 2 L of oxygen and had to increase to 6 L over the past couple of days. He denies any other concurrent complaints at this time. He states he's been here before recently with similar symptoms. He states that he has both heart failure and COPD. He states he doesn't have a lung specialist. He states Dr. Glasgow is his primary care physician. 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 He feels worse when he moves around. He presents by ambulance and was given one breathing treatment in route. PFSH Past Medical History Hx Anticoagulant Therapy: Yes (WARFARIN ) AAA: Yes (REPAIRED 2004) Atrial Fibrillation: Yes Blood Disorders: No Heart Rhythm Problems: Yes (AFIB) Cancer: No Cardiovascular Problems: Yes (KS ) High Cholesterol: Yes Chest Pain: Yes Congestive Heart Failure: Yes COPD: Yes Coronary Artery Disease: Yes Diminished Hearing: Yes (RIGHT EAR) Deep Vein Thrombosis: Yes Endocrine: No Gastrointestinal Disorders: Yes (GI BLEED) GERD: Yes Genitourinary: Yes (VARGAS ) Hiatal Hernia: No Hypertension: Yes Immune Disorder: No Implanted Vascular Access Dvce: Yes Musculoskeletal: No Neurologic: No Psychiatric: No Reproductive: No Respiratory: Yes (sleep apnea) Immunizations Current: Yes (HAD CHILDHOOD ILLNESS IMMUNIZATIONS) Myocardial Infarction: Yes (2010) Pneumonia: Yes Sleep Apnea: Yes Ulcer: Yes Tetanus Vaccination: Unknown Influenza Vaccination: Yes PNEUMOCCOCAL Vaccine (Year): 2 ?: Not Past Surgical History Abdominal Aneurysm Repair: Yes (2004) Abdominal Surgery: Yes (CHOLECYSTECTOMY) AICD: Yes Arteriovenous Shunt: No Body Medical Devices: defibrillator 2012, 2015 Cardiac Surgery: Yes (STENT LAD/ Defibrillator, CARDIAC CATH) Cholecystectomy: Yes Coronary Stent: Yes (APRIL 2011) Ear Surgery: No Endocrine Surgery: No Eye Surgery: No Genitourinary Surgery: No Gynecologic Surgery: No Insulin Pump: No Joint Replacement: No Oral Surgery: No Pacemaker: Yes (DEFIBRILLATOR) Thoracic Surgery: No Tonsillectomy: Yes Other Surgery: Yes (NICHO FILTER) Social History Alcohol Use: No Tobacco Use: No (QUIT LAST JULY ) Substance Use: No Allergies-Medications (Allergen,Severity, Reaction): Coded Allergies: Penicillin (Verified Allergy, Unknown, UNKNWON REACTION, 08/23/16) PATIENT STATES THAT HE IS NOT ALLERGIC TO THIS MEDICATION. Reported Meds & Prescriptions Reported Meds & Active Scripts Active Spiriva Handihaler (Tiotropium Inh) 18 Mcg Cap 18 Mcg INH DAILY 1 capsule = 18 mcg Lorazepam 0.5 Mg Tab 0.5 Mg PO Q12HR PRN Duoneb (Ipratropium-Albuterol Neb) 0.5-2.5 Mg/3 Ml Neb 1 Ampule NEB Q4HR PRN Amiodarone (Amiodarone HCl) 200 Mg Tab 200 Mg PO DAILY Acetaminophen-Codeine 300-30 mg Tab 2 Tab PO Q6HR PRN Reported Spironolactone 25 Mg Tab 25 Mg PO DAILY Ciprofloxacin (Ciprofloxacin HCl) 500 Mg Tab 500 Mg PO BID Warfarin 4 Mg Tab 4 Mg PO MON,MON, ,MON Warfarin 3 Mg Tab 3 Mg PO MON,MON K-Tab (Potassium Chloride) 10 Meq Tab 10 Meq PO HS Furosemide 40 Mg Tab 40 Mg PO BID Proscar (Finasteride) 5 Mg Tab 5 Mg PO DAILY Do not crush. Carvedilol 3.125 Mg Tab 3.125 Mg PO BID Pantoprazole (Pantoprazole Sodium) 40 Mg Tab 40 Mg PO DAILY Ramipril 5 Mg Cap 5 Mg PO DAILY Atorvastatin (Atorvastatin Calcium) 40 Mg Tab 60 Mg PO HS Tamsulosin (Tamsulosin HCl) 0.4 Mg Cap 0.4 Mg PO HS Digoxin 0.125 Mg Tab 0.125 Mg PO DAILY Review of Systems Except as stated in HPI: all other systems reviewed are Neg Physical Exam Exam Limitations: Poor Historian Narrative GENERAL: ill appearing, well-developed patient. SKIN: Warm and dry. HEAD: Normocephalic and atraumatic. EYES: No injection or drainage. ENT: No nasal drainage noted. NECK: Supple, trachea midline. CARDIOVASCULAR: Regular rate and rhythm RESPIRATORY: Breath sounds equal bilaterally at apices. No accessory muscle use. GASTROINTESTINAL: Abdomen soft, non-tender, nondistended. NEUROLOGICAL: Awake and alert. moves all extremities. Normal speech. Data Data Last Documented VS Vital Signs Date Time Temp Pulse Resp B/P Pulse Ox O2 Delivery O2 Flow Rate FiO2 02/22/17 12:16 93 Nasal Cannula 4.00 02/22/17 12:06 70 22 02/22/17 12:06 97.4 133/84 Orders Complete Blood Count With Diff (02/22/17 12:05) Comprehensive Metabolic Panel (02/22/17 12:05) B-Type Natriuretic Peptide (02/22/17 12:05) Act Partial Throm Time (Ptt) (02/22/17 12:05) Prothrombin Time / Inr (Pt) (02/22/17 12:05) Magnesium (Mg) (02/22/17 12:05) Ckmb (Isoenzyme) Profile (02/22/17 12:05) Troponin I (02/22/17 12:05) Influenzae A/B Antigen (02/22/17 12:05) Blood Culture (02/22/17 12:05) Iv Access Insert/Monitor (02/22/17 12:05) Electrocardiogram (02/22/17 12:05) Ecg Monitoring (02/22/17 12:05) Oximetry (02/22/17 12:05) Oxygen Administration (02/22/17 12:05) Chest, Single Ap (02/22/17 12:05) Sodium Chloride 0.9% Flush (Ns Flush) (02/22/17 12:15) Methylprednisolone So Succ Inj (Solumedr (02/22/17 12:15) Albuterol-Ipratropium Neb (Duoneb Neb) (02/22/17 12:15) Lactic Acid (02/22/17 12:05) Digoxin (02/22/17 12:05) Furosemide Inj (Lasix Inj) (02/22/17 13:00) Arterial Blood Gas (Abg) (02/22/17 ) Admit Order (Ed Use Only) (02/22/17 13:32) Labs Laboratory Tests Test 02/22/17 12:15 White Blood Count 8.7 TH/MM3 Red Blood Count 5.03 MIL/MM3 Hemoglobin 15.6 GM/DL Hematocrit 46.8 % Mean Corpuscular Volume 93.1 FL Mean Corpuscular Hemoglobin 30.9 PG Mean Corpuscular Hemoglobin 33.2 % Concent Red Cell Distribution Width 15.0 % Platelet Count 175 TH/MM3 Mean Platelet Volume 8.2 FL Neutrophils (%) (Auto) 84.4 % Lymphocytes (%) (Auto) 8.7 % Monocytes (%) (Auto) 5.5 % Eosinophils (%) (Auto) 0.8 % Basophils (%) (Auto) 0.6 % Neutrophils # (Auto) 7.3 TH/MM3 Lymphocytes # (Auto) 0.8 TH/MM3 Monocytes # (Auto) 0.5 TH/MM3 Eosinophils # (Auto) 0.1 TH/MM3 Basophils # (Auto) 0.1 TH/MM3 CBC Comment DIFF FINAL Differential Comment Prothrombin Time 52.4 SEC Prothromb Time International 4.4 RATIO Ratio Activated Partial 45.3 SEC Thromboplast Time Sodium Level 139 MEQ/L Potassium Level 4.1 MEQ/L Chloride Level 101 MEQ/L Carbon Dioxide Level 30.1 MEQ/L Anion Gap 8 MEQ/L Blood Urea Nitrogen 12 MG/DL Creatinine 1.31 MG/DL Estimat Glomerular Filtration 53 ML/MIN Rate Random Glucose 123 MG/DL Lactic Acid Level 1.9 mmol/L Calcium Level 8.7 MG/DL Magnesium Level 2.0 MG/DL Total Bilirubin 0.7 MG/DL Aspartate Amino Transf 21 U/L (AST/SGOT) Alanine Aminotransferase 28 U/L (ALT/SGPT) Alkaline Phosphatase 123 U/L Total Creatine Kinase 44 U/L Troponin I 0.02 NG/ML B-Type Natriuretic Peptide 1025 PG/ML Total Protein 7.2 GM/DL Albumin 3.1 GM/DL Digoxin Level 1.7 NG/ML MDM Medical Decision Making Medical Screen Exam Complete: Yes Emergency Medical Condition: Yes Medical Record Reviewed: Yes (pmh confirmed) Interpretation(s) CBC & BMP Diagram 02/22/17 12:15 Last 24 hours Impressions Chest X-Ray 02/22/17 1205 Signed Impressions: Service Date/Time: Wednesday, February 22, 2017 12:22 - CONCLUSION: Radiographic findings consistent with intra-alveolar pulmonary edema. Yoel Rocha Jr., MD ABG shows PO2 of 57.8 on 4 L so this will be increased and he'll be closely monitor in intermediate care Differential Diagnosis CHF, KS, pneumonia, PE, COPD Narrative Course Will check blood work, chest x-ray, EKG and dose with Solu-Medrol and DuoNeb's and monitor x-ray After review of x-ray Lasix was ordered, check ABG Patient updated and agrees to admission Physician Communication Physician Communication agrees to admit informed of ABG Diagnosis Primary Impression: Acute exacerbation of CHF (congestive heart failure) Qualified Code: I50.9 - Acute on chronic congestive heart failure, unspecified congestive heart failure type Ernestina Adkins MD Feb 22, 2017 12:25
[2017-02-22 12:35] LABS: AUTOMATED NEUTROPHIL # 7.3 TH/MM3 (1.8-7.7); BASOPHIL # 0.1 TH/MM3 (0-0.2); BASOPHIL % 0.6 % (0.0-2.0); EOSINOPHIL # 0.1 TH/MM3 (0-0.4); EOSINOPHIL % 0.8 % (0.0-4.0); HEMATOCRIT 46.8 % (39.0-51.0); HEMO FLAGS DIFF FINAL; LYMPH % 8.7 % (9.0-44.0); LYMPHOCYTE # 0.8 TH/MM3 (1.0-4.8); MEAN CELL VOLUME 93.1 FL (80.0-100.0); MEAN CORPUSCULAR HEMOGLOBIN 30.9 PG (27.0-34.0); MEAN CORPUSCULAR HGB CONC 33.2 % (32.0-36.0); MONO % 5.5 % (0.0-8.0); NEUT % 84.4 % (16.0-70.0); PLATELET COUNT 175 TH/MM3 (150-450); RED BLOOD COUNT 5.03 MIL/MM3 (4.50-5.90); WHITE BLOOD COUNT 8.7 TH/MM3 (4.0-11.0)
[2017-02-22 12:44] LABS: APTT (PATIENT) 45.3 SEC (24.3-30.1); INTERNATIONAL NORMALIZED RATIO 4.4 RATIO; PROTHROMBIN TIME - PATIENT 52.4 SEC (9.8-11.6)
--- NOTE | 2017-02-22 12:53 | RADRPT ---
EXAM DATE/TIME: 02/22/2017 12:22 [place] COMPARISON: CHEST SINGLE AP, September 27, 2016, 17:08. INDICATIONS : Short of breath. MEDICAL HISTORY : None. SURGICAL HISTORY : Pacemaker. ENCOUNTER: Subsequent ACUITY: 2 days PAIN SCORE: 0/10 LOCATION: Bilateral chest FINDINGS: A single portable frontal view of the chest shows small bilateral pleural effusions and bibasilar int ra-alveolar infiltrates. Heart is enlarged. Dual-lead pacing device on the left observed. Osteopenic spine. CONCLUSION: Radiographic findings consistent with intra-alveolar pulmonary edema. Yoel Rocha Jr., MD on February 22, 2017 at 12:50 Board Certified Radiologist. This report was verified electronically.
[2017-02-22] MEDS ORDERED: FUROSEMIDE 40 MG/4 ML VIAL IV PUSH ONE (13:00)
[2017-02-22 13:08] LABS: ANION GAP 8 MEQ/L (5-15); AST (GOT) 21 U/L (15-37); BICARBONATE 30.1 MEQ/L (21.0-32.0); BLOOD UREA NITROGEN 12 MG/DL (7-18); CHLORIDE 101 MEQ/L (98-107); GLOMERULAR FILTRATION RATE 53 ML/MIN (>89); POTASSIUM 4.1 MEQ/L (3.5-5.1); SODIUM (NA) 139 MEQ/L (136-145)
[2017-02-22 13:09] LABS: ALKALINE PHOSPHATASE 123 U/L (45-117); ALT (GPT) 28 U/L (12-78); CREATINE KINASE 44 U/L (39-308); DIGOXIN 1.7 NG/ML (0.8-2.0); TOTAL BILIRUBIN ADULT 0.7 MG/DL (0.2-1.0)
[2017-02-22] MEDS ORDERED: ACETAMINOPHEN/CODEINE 300 MG/30 MG TAB PO PRN (13:45)
[2017-02-22] MEDS ORDERED: MAGNESIUM HYDROXIDE SUSP 30 ML CUP PO PRN (13:45)
[2017-02-22] MEDS ORDERED: SENNOSIDES 8.6 MG TAB PO PRN (13:45)
[2017-02-22] MEDS ORDERED: BISACODYL 10 MG SUPP RECTAL PRN (13:45)
[2017-02-22] MEDS ORDERED: NALOXONE HCL 0.4 MG/ML AMP IV PRN (13:45)
[2017-02-22] MEDS ORDERED: LACTULOSE SYRUP 20 GM/30 ML CUP PO PRN (13:45)
[2017-02-22] MEDS ORDERED: RESP: ALBUTEROL 2.5 MG/3 ML NEB (PRN) NEB (13:45)
[2017-02-22] MEDS ORDERED: ONDANSETRON HCL 4 MG/2 ML VIAL IVP PRN (13:45)
[2017-02-22] MEDS ORDERED: SODIUM CHLORIDE 0.9% FLUSH 10 ML FLUSH IV FLUSH PRN (13:45)
[2017-02-22] MEDS ORDERED: LORazepam 0.5 MG TAB PO PRN (13:45)
[2017-02-22 13:52] LABS: BLOOD GAS BASE EXCESS 1.9 mmol/L (-2-2); BLOOD GAS CARBOXYHEMOGLOBIN 1.2 % (0-4); BLOOD GAS HCO3 26 mmol/L (22-26); BLOOD GAS METHEMOGLOBIN 0.5 % (0-2); BLOOD GAS O2 HGB SATURATION 88 % (90-100); BLOOD GAS PCO2 38 mmHg (38-42); BLOOD GAS PO2 58 mmHG (61-120); BLOOD GAS TOTAL HGB 14.6 G/DL (12.0-16.0); CRITICAL VALUE YES; DRAW SITE LT BRACHIAL; LITER FLOW 4 L/M; NUMBER OF ARTERIAL PUNCTURES 1; OXYGEN DEVICE NASAL CANNULA; STAT YES; TEMP CORR TO 98.6; ULNAR PULSE Y
--- NOTE | 2017-02-22 14:12 | HHI.HP ---
HPI [facility] Louis Glasgow MD Admission Diagnosis chf exacerbation Diagnoses: Chief Complaint: Shortness of breath Travel History International Travel<30 Days: No Contact w/Intl Traveler <30 Da: No Traveled to Known Affected Are: No History of Present Illness Written by Manuel Benavides, acting as scribe for Dr. Thomas on 02/22/17 at 14:00. 81-year-old male with past medical history of A. fib, HLD, HTN, CHF, CAD, COPD, BPH, PUD, CKD who presents with shortness of breath. The patient reports increasing shortness of breath over the past few days. He states he monitors his oxygen saturation which is normally in the mid 90s, but has been trending down to 86% at home. He denies any recent illness or infection. He denies any chest pain. He states that he has been feeling more unsteady on his feet. He does have an indwelling West catheter. No other complaints at this time. Review of Systems Except as stated in HPI: all other systems reviewed are Neg Past Family Social History Past Medical History Chronic systolic congestive heart failure COPD on home oxygen Hypertension Hyperlipidemia BPH with indwelling West History of DVT/PE AAA status post repair Chronic kidney disease stage III Pulmonary hypertension Past Surgical History Prostate biopsy Endovascular repair of AAA Mirta IVC filter placement Cardiac catheterization with PCI AV arjun ablation AICD placement EGD ERCP Reported Medications Spiriva Handihaler (Tiotropium Inh) 18 Mcg Cap 18 Mcg INH DAILY 1 capsule = 18 mcg Lorazepam 0.5 Mg Tab 0.5 Mg PO Q12HR PRN Duoneb (Ipratropium-Albuterol Neb) 0.5-2.5 Mg/3 Ml Neb 1 Ampule NEB Q4HR PRN Amiodarone (Amiodarone HCl) 200 Mg Tab 200 Mg PO DAILY Acetaminophen-Codeine 300-30 mg Tab 2 Tab PO Q6HR PRN Spironolactone 25 Mg Tab 25 Mg PO DAILY Ciprofloxacin (Ciprofloxacin HCl) 500 Mg Tab 500 Mg PO BID Warfarin 4 Mg Tab 4 Mg PO MON,MON, THUR,SAT Warfarin 3 Mg Tab 3 Mg PO MON,MON K-Tab (Potassium Chloride) 10 Meq Tab 10 Meq PO HS Furosemide 40 Mg Tab 40 Mg PO BID Proscar (Finasteride) 5 Mg Tab 5 Mg PO DAILY Do not crush. Carvedilol 3.125 Mg Tab 3.125 Mg PO BID Pantoprazole (Pantoprazole Sodium) 40 Mg Tab 40 Mg PO DAILY Ramipril 5 Mg Cap 5 Mg PO DAILY Atorvastatin (Atorvastatin Calcium) 40 Mg Tab 60 Mg PO HS Tamsulosin (Tamsulosin HCl) 0.4 Mg Cap 0.4 Mg PO HS Digoxin 0.125 Mg Tab 0.125 Mg PO DAILY Allergies: Coded Allergies: Penicillin (Verified Allergy, Unknown, UNKNWON REACTION, 08/23/16) PATIENT STATES THAT HE IS NOT ALLERGIC TO THIS MEDICATION. Active Ordered Medications Current Medications Medications (Trade) Dose Ordered Sig/Joni Route Start Time Stop Time Status Last Admin (NS Flush) 2 ml UNSCH PRN IV FLUSH 02/22/17 13:45 (NS Flush) 2 ml BID IV FLUSH 02/22/17 21:00 (Zofran Inj) 4 mg Q6H PRN IVP 02/22/17 13:45 (Narcan Inj) 0.4 mg UNSCH PRN IV 02/22/17 13:45 (Kayleigh-Colace) 1 tab BID PO 02/22/17 21:00 (Milk Of Magnesia Liq) 30 ml Q12H PRN PO 02/22/17 13:45 (Senokot) 17.2 mg Q12H PRN PO 02/22/17 13:45 (Dulcolax Supp) 10 mg DAILY PRN RECTAL 02/22/17 13:45 (Lactulose Liq) 30 ml DAILY PRN PO 02/22/17 13:45 (Lasix Inj) 40 mg BID@,18 IV PUSH 02/22/17 18:00 (Tylenol-Codeine #3) 2 tab Q6HR PRN PO 02/22/17 13:45 (Cordarone) 200 mg DAILY PO 02/23/17 09:00 (Lipitor) 60 mg HS PO 02/22/17 21:00 (Coreg) 3.125 mg BID PO 02/22/17 21:00 (Cipro) 500 mg BID PO 02/22/17 21:00 (Lanoxin) 0.125 mg DAILY PO 02/23/17 09:00 (Proscar) 5 mg DAILY PO 02/23/17 09:00 (Ativan) 0.5 mg Q12HR PRN PO 02/22/17 13:45 (Protonix) 40 mg DAILY PO 02/23/17 09:00 (KCl) 10 meq HS PO 02/22/17 21:00 (Altace) 5 mg DAILY PO 02/23/17 09:00 (Aldactone) 25 mg DAILY PO 02/23/17 09:00 (Flomax) 0.4 mg HS PO 02/22/17 21:00 (Spiriva Inh) 18 mcg DAILY INH 02/23/17 09:00 Family History No family history pertinent to current chief complaint Social History Quit smoking in July 2016 Denies any alcohol use Lives at home alone Physical Exam Vital Signs Vital Signs Date Time Temp Pulse Resp B/P Pulse Ox O2 Delivery O2 Flow Rate FiO2 02/22/17 12:16 93 Nasal Cannula 4.00 02/22/17 12:11 89 Nasal Cannula 4 02/22/17 12:06 70 22 88 Nasal Cannula 4 02/22/17 12:06 97.4 70 22 133/84 88 Nasal Cannula 4 02/22/17 12:01 97.4 70 22 133/84 87 Physical Exam GENERAL: Well-developed well-nourished. In no acute distress. SKIN: Warm and dry. No lesions noted. HEENT: Normocephalic. Pupils equal and round. Mucous membranes pink and moist. CARDIOVASCULAR: Regular rate and rhythm. No murmur appreciated. RESPIRATORY: No accessory muscle use. Clear to auscultation. Bibasilar crackles. No wheezing. GASTROINTESTINAL: Abdomen soft, non-tender, nondistended. Bowel sounds x4. MUSCULOSKELETAL: No obvious deformities. No clubbing or cyanosis. 2+ edema. NEUROLOGICAL: Awake and alert. No focal neurological deficits. Moves upper and lower extremities spontaneously. Normal speech. PSYCHIATRIC: Appropriate mood and affect; insight and judgment normal. Laboratory Laboratory Tests Test 02/22/17 02/22/17 12:15 13:25 White Blood Count 8.7 Red Blood Count 5.03 Hemoglobin 15.6 Hematocrit 46.8 Mean Corpuscular Volume 93.1 Mean Corpuscular Hemoglobin 30.9 Mean Corpuscular Hemoglobin 33.2 Concent Red Cell Distribution Width 15.0 Platelet Count 175 Mean Platelet Volume 8.2 Neutrophils (%) (Auto) 84.4 Lymphocytes (%) (Auto) 8.7 Monocytes (%) (Auto) 5.5 Eosinophils (%) (Auto) 0.8 Basophils (%) (Auto) 0.6 Neutrophils # (Auto) 7.3 Lymphocytes # (Auto) 0.8 Monocytes # (Auto) 0.5 Eosinophils # (Auto) 0.1 Basophils # (Auto) 0.1 CBC Comment DIFF FINAL Differential Comment Prothrombin Time 52.4 Prothromb Time International 4.4 Ratio Activated Partial 45.3 Thromboplast Time Sodium Level 139 Potassium Level 4.1 Chloride Level 101 Carbon Dioxide Level 30.1 Anion Gap 8 Blood Urea Nitrogen 12 Creatinine 1.31 Estimat Glomerular Filtration 53 Rate Random Glucose 123 Lactic Acid Level 1.9 Calcium Level 8.7 Magnesium Level 2.0 Total Bilirubin 0.7 Aspartate Amino Transf 21 (AST/SGOT) Alanine Aminotransferase 28 (ALT/SGPT) Alkaline Phosphatase 123 Total Creatine Kinase 44 Troponin I 0.02 B-Type Natriuretic Peptide 1025 Total Protein 7.2 Albumin 3.1 Digoxin Level 1.7 Blood Gas Puncture Site LT BRACHIAL Blood Gas Patient Temperature 98.6 Blood Gas HCO3 26 Blood Gas Base Excess 1.9 Blood Gas Oxygen Saturation 88 Arterial Blood pH 7.44 Arterial Blood Partial 38 Pressure CO2 Arterial Blood Partial 58 Pressure O2 Arterial Blood Oxygen Content 18.0 Arterial Blood 1.2 Carboxyhemoglobin Arterial Blood Methemoglobin 0.5 Blood Gas Hemoglobin 14.6 Oxygen Delivery Device NASAL CANNULA Blood Gas Liter Flow 4 Date/Time Procedure Status Source Growth 02/22/17 12:20 Aerobic Blood Culture Received Blood Peripheral Pending 02/22/17 12:20 Anaerobic Blood Culture Received Blood Peripheral Pending 02/22/17 12:15 Cancelled Nasal Aspirate Result Diagram: 02/22/17 1215 02/22/17 1215 Imaging Last Impressions Chest X-Ray 02/22/17 1205 Signed Impressions: Service Date/Time: Wednesday, February 22, 2017 12:22 - CONCLUSION: Radiographic findings consistent with intra-alveolar pulmonary edema. Yoel Rocha Jr., MD Assessment and Plan Assessment and Plan 81-year-old male with past medical history of A. fib, HLD, HTN, CHF, CAD, COPD, BPH, PUD, CKD who presents with shortness of breath Acute respiratory failure: Presented with shortness of breath and hypoxia. ABG reviewed. Likely multifactorial, although appears more secondary to CHF exacerbation as below. Received IV Solu-Medrol and Lasix in the ED. Continue supplemental oxygen as needed. Acute exacerbation of chronic systolic CHF: Reviewed: Chest x-ray with pulmonary edema. BNP 1025, previously 532 on . Echocardiogram 09/26/16 with severely reduced systolic function, EF 2025 %. -Diuresis with IV Lasix and monitor intake and output. -Continue carvedilol, ramipril, and Aldactone COPD with chronic respiratory failure: On home O2, 4 L. Scheduled and as needed nebs. Continue Spiriva. Atrial fibrillation: Chronic, stable. Continue carvedilol, digoxin, amiodarone. Holding anticoagulation. Chronic anticoagulation with Coumadin with supratherapeutic INR: On Coumadin for atrial fibrillation and history of DVT/PE. INR 4.4. No signs of bleeding at this time. Hold Coumadin and monitor INR. BPH: With indwelling West catheter. Maintain West. Continue Flomax and Proscar. CKD stage III: Creatinine 1.31, previously 1.19 on 09/28/16. Likely a cardiorenal component. Monitor. This note was transcribed by unique [Manuel Benavides]. I, Dr. Pierce Thomas personally performed the history, physical exam, and medical decision making; and confirmed the accuracy of the information in the transcribed note. Authenticated by Dr. Pierce Thomas on 02/22/17 at 15:22. Discussed Condition With Patient, Manuel Sylvester Feb 22, 2017 2:12 pm Pierce Thomas MD Feb 22, 2017 3:23 pm
[2017-02-22] MEDS: RESP: ALBUTEROL 2.5 MG/IPRATROPIUM 0.5 MG NEB (PRN) NEB ×3 (15:52→22:43)
[2017-02-22] MEDS: FUROSEMIDE 40 MG/4 ML VIAL IV PUSH SCH (18:00)
[2017-02-22] MEDS ORDERED: FUROSEMIDE 40 MG/4 ML VIAL IV PUSH SCH (18:00)
[2017-02-22] MEDS ORDERED: CHLORHEXIDINE GLUCONATE 2 % 1 PACK (2 CLOTHS)(extra cloths) TOPICAL PRN (18:00)
[2017-02-22] MEDS: DOCUSATE SODIUM 50 MG/SENNA 8.6 MG TAB PO SCH (21:00)
[2017-02-22] MEDS: CIPROFLOXACIN 500 MG TAB PO SCH (21:52)
[2017-02-22] MEDS: CARVEDILOL 3.125 MG TAB PO SCH (21:52)
[2017-02-22] MEDS: TAMSULOSIN HCL 0.4 MG CAP PO SCH (21:52)
[2017-02-22] MEDS: ATORVASTATIN 20 MG TAB PO SCH (21:52)
[2017-02-22] MEDS: POTASSIUM CHLORIDE 10 MEQ CONTROLLED RELEASE TAB PO SCH (21:52)
[2017-02-22] MEDS: SODIUM CHLORIDE 0.9% FLUSH 10 ML FLUSH IV FLUSH SCH (21:53)
[2017-02-22] MEDS: CHLORHEXIDINE GLUCONATE 2 % 1 PACK (2 CLOTHS)(taper/protocol) TOPICAL SCH (21:57)
[2017-02-23] VITALS (17 sets, daily range): BP systolic 98–115; BP diastolic 65–77; PULSE 65–72; RESP 17–28; TEMP 97.6–98.7; O2SAT 86–95
[2017-02-23 03:53] LABS: AUTOMATED NEUTROPHIL # 7.1 TH/MM3 (1.8-7.7); BASOPHIL % 0.2 % (0.0-2.0); EOSINOPHIL % 0.1 % (0.0-4.0); HEMATOCRIT 44.4 % (39.0-51.0); HEMO FLAGS DIFF FINAL; LYMPH % 3.6 % (9.0-44.0); LYMPHOCYTE # 0.3 TH/MM3 (1.0-4.8); MEAN CELL VOLUME 92.2 FL (80.0-100.0); MEAN CORPUSCULAR HEMOGLOBIN 31.1 PG (27.0-34.0); MEAN CORPUSCULAR HGB CONC 33.7 % (32.0-36.0); MONO % 1.2 % (0.0-8.0); NEUT % 94.9 % (16.0-70.0); PLATELET COUNT 130 TH/MM3 (150-450); RED BLOOD COUNT 4.81 MIL/MM3 (4.50-5.90); RED CELL DISTRIBUTION WIDTH 14.8 % (11.6-17.2); WHITE BLOOD COUNT 7.5 TH/MM3 (4.0-11.0)
[2017-02-23 04:23] LABS: ALT (GPT) 23 U/L (12-78); ANION GAP 10 MEQ/L (5-15); AST (GOT) 13 U/L (15-37); BICARBONATE 27.3 MEQ/L (21.0-32.0); BLOOD UREA NITROGEN 18 MG/DL (7-18); CHLORIDE 104 MEQ/L (98-107); GLOMERULAR FILTRATION RATE 50 ML/MIN (>89); POTASSIUM 4.3 MEQ/L (3.5-5.1); SODIUM (NA) 141 MEQ/L (136-145)
[2017-02-23 04:31] LABS: ALKALINE PHOSPHATASE 103 U/L (45-117); TOTAL BILIRUBIN ADULT 0.4 MG/DL (0.2-1.0)
[2017-02-23] MEDS: FUROSEMIDE 40 MG/4 ML VIAL IV PUSH SCH ×2 (05:18→11:27)
[2017-02-23 05:44] LABS: INTERNATIONAL NORMALIZED RATIO 3.2 RATIO; PROTHROMBIN TIME - PATIENT 37.5 SEC (9.8-11.6)
[2017-02-23] MEDS: SODIUM CHLORIDE 0.9% FLUSH 10 ML FLUSH IV FLUSH SCH ×2 (09:00→21:07)
[2017-02-23] MEDS: TIOTROPIUM BROMIDE 18 MCG INH INH SCH (09:00)
[2017-02-23] MEDS: AMIODARONE 200 MG TAB PO SCH (09:24)
[2017-02-23] MEDS: CARVEDILOL 3.125 MG TAB PO SCH ×2 (09:24→21:08)
[2017-02-23] MEDS: PANTOPRAZOLE SOD 40 MG DELAYED RELEASE TAB PO SCH (09:24)
[2017-02-23] MEDS: DOCUSATE SODIUM 50 MG/SENNA 8.6 MG TAB PO SCH ×2 (09:24→21:00)
[2017-02-23] MEDS: RAMIPRIL 5 MG CAP PO SCH (09:24)
[2017-02-23] MEDS: DIGOXIN 0.125 MG TAB PO SCH (09:24)
[2017-02-23] MEDS: FINASTERIDE 5 MG TAB PO SCH (09:24)
[2017-02-23] MEDS: SPIRONOLACTONE 25 MG TAB PO SCH (09:24)
[2017-02-23] MEDS: CIPROFLOXACIN 500 MG TAB PO SCH ×2 (11:27→21:07)
--- NOTE | 2017-02-23 14:07 | EKG ---
Date Performed: 02/22/2017 Time Performed: 12:16:54 PTAGE: 81 years EKG: ELECTRONIC VENTRICULAR PACEMAKER ABNORMAL RHYTHM ECG PREVIOUS TRACING : 09/23/2016 00.32 Since previous tracing, no significant change noted DOCTOR: Phill Velasco Interpretating Date/Time 02/23/2017 13:59:18
--- NOTE | 2017-02-23 14:37 | HHI.PR ---
Subjective Remarks Follow-up for respiratory failure due to CHF exacerbation Patient stated breathing has improved. He stated he is on 2 L nasal cannula at home at baseline. Denies any cough. Patient also asking to have SCDs placed he stated that works best for him in preventing clots. Deny any chest pain, palpitation, light and his dizziness. Objective Vitals Vital Signs Date Time Temp Pulse Resp B/P Pulse Ox O2 Delivery O2 Flow Rate FiO2 02/23/17 12:00 69 02/23/17 10:00 69 02/23/17 08:00 69 02/23/17 08:00 69 02/23/17 08:00 94 Venturi Mask 6.00 50 02/23/17 07:34 94 Venturi Mask 6.00 50 02/23/17 06:00 69 02/23/17 04:00 97.6 69 17 109/72 94 02/23/17 04:00 69 02/23/17 03:00 69 02/23/17 02:00 69 02/23/17 02:00 69 02/23/17 01:00 69 02/23/17 00:30 89 Venturi Mask 6.00 50 02/23/17 00:30 95 Venturi Mask 6.00 50 02/23/17 00:00 69 02/23/17 00:00 97.9 69 18 111/70 86 02/23/17 00:00 69 02/22/17 23:00 69 02/22/17 23:00 69 23 92 02/22/17 22:00 69 31 89 02/22/17 22:00 59 02/22/17 20:00 97.6 69 16 122/74 94 02/22/17 20:00 69 02/22/17 20:00 95 Nasal Cannula 4.00 Humidified 02/22/17 19:42 92 Nasal Cannula 4.00 02/22/17 17:00 68 20 124/83 90 Nasal Cannula 4 02/22/17 17:00 98.5 105 20 114/72 94 02/22/17 15:00 69 20 135/90 91 Nasal Cannula 4 I/O 02/22/17 02/22/17 02/22/17 02/23/17 02/23/17 02/23/17 07:00 15:00 23:00 07:00 15:00 23:00 Intake Total 500 ml 250 ml Output Total 125 ml 225 ml Balance 375 ml 25 ml Intake Oral 500 ml 250 ml Output Urine Total 125 ml 225 ml Result Diagram: 02/23/17 0330 02/23/17 0330 Imaging Last Impressions Chest X-Ray 02/22/17 1205 Signed Impressions: Service Date/Time: Wednesday, February 22, 2017 12:22 - CONCLUSION: Radiographic findings consistent with intra-alveolar pulmonary edema. Yoel Rocha Jr., MD Objective Remarks GENERAL: in NAD on face mask. CARDIOVASCULAR: Regular rate and rhythm without murmurs, gallops, or rubs. RESPIRATORY: Breath sounds equal bilaterally. No accessory muscle use. GASTROINTESTINAL: Abdomen soft, non-tender, nondistended. MUSCULOSKELETAL: No cyanosis, or edema. BACK: Nontender without obvious deformity. No CVA tenderness. Medications and IVs Current Medications Sodium Chloride (NS Flush) 2 ml UNSCH PRN IVF FLUSH AFTER USING IV ACCESS; Start 02/22/17 at 12:15; Stop 02/22/17 at 13:41; Status DC Methylprednisolone Sodium Succinate (SoluMEDROL INJ) 125 mg ONCE ONCE IVP Last administered on 02/22/17 12:15; Start 02/22/17 at 12:15; Stop 02/22/17 at 12: 16; Status DC Albuterol/ Ipratropium (Duoneb Neb) 1 ampule ONCE ONCE INH Last administered on 02/22/17 12:16; Start 02/22/17 at 12:15; Stop 02/22/17 at 12:16; Status DC Furosemide (Lasix Inj) 40 mg ONCE ONCE IV PUSH Last administered on 02/22/17 13:27; Start 02/22/17 at 13:00; Stop 02/22/17 at 13:01; Status DC Sodium Chloride (NS Flush) 2 ml UNSCH PRN IV FLUSH FLUSH AFTER USING IV ACCESS ; Start 02/22/17 at 13:45 Sodium Chloride (NS Flush) 2 ml BID IV FLUSH Last administered on 02/23/17 09: 00; Start 02/22/17 at 21:00 Ondansetron HCl (Zofran Inj) 4 mg Q6H PRN IVP NAUSEA OR VOMITING; Start at 13:45 Naloxone HCl (Narcan Inj) 0.4 mg UNSCH PRN IV SEE LABEL COMMENTS; Start at 13:45 Senna/Docusate Sodium (Kayleigh-Colace) 1 tab BID PO Last administered on 02/23/17 09:24; Start 02/22/17 at 21:00 Magnesium Hydroxide (Milk Of Magnesia Liq) 30 ml Q12H PRN PO MILD - MODERATE CONSTIPATION; Start 02/22/17 at 13:45 Sennosides (Senokot) 17.2 mg Q12H PRN PO MODERATE - SEVERE CONSTIPATION; Start 02/22/17 at 13:45 Bisacodyl (Dulcolax Supp) 10 mg DAILY PRN RECTAL SEVERE CONSITIPATION; Start at 13:45 Lactulose (Lactulose Liq) 30 ml DAILY PRN PO SEVERE CONSITIPATION; Start at 13:45 Furosemide (Lasix Inj) 40 mg BID@,18 IV PUSH ; Start 02/22/17 at 18:00; Stop at 18:00; Status DC Albuterol Sulfate (Albuterol Neb) 2.5 mg Q4HR NEB PRN NEB SHORTNESS OF BREATH; Start 02/22/17 at 13:45 Acetaminophen/ Codeine Phosphate (Tylenol-Codeine #3) 2 tab Q6HR PRN PO pain 1- 10; Start 02/22/17 at 13:45 Amiodarone HCl (Cordarone) 200 mg DAILY PO Last administered on 02/23/17 09:24 ; Start 02/23/17 at 09:00 Atorvastatin Calcium (Lipitor) 60 mg HS PO Last administered on 02/22/17 21:52 ; Start 02/22/17 at 21:00 Carvedilol (Coreg) 3.125 mg BID PO Last administered on 02/23/17 09:24; Start 02/22/17 at 21:00 Ciprofloxacin (Cipro) 500 mg BID PO Last administered on 02/23/17 11:27; Start 02/22/17 at 21:00 Digoxin (Lanoxin) 0.125 mg DAILY PO Last administered on 02/23/17 09:24; Start 02/23/17 at 09:00 Finasteride (Proscar) 5 mg DAILY PO Last administered on 02/23/17 09:24; Start 02/23/17 at 09:00 Albuterol/ Ipratropium (Duoneb Neb) 1 ampule Q4HR NEB PRN NEB SHORTNESS OF BREATH Last administered on 02/22/17 22:43; Start 02/22/17 at 13:45 Lorazepam (Ativan) 0.5 mg Q12HR PRN PO ANXIETY; Start 02/22/17 at 13:45 Pantoprazole Sodium (Protonix) 40 mg DAILY PO Last administered on 02/23/17 09: 24; Start 02/23/17 at 09:00 Potassium Chloride (KCl) 10 meq HS PO Last administered on 02/22/17 21:52; Start 02/22/17 at 21:00 Ramipril (Altace) 5 mg DAILY PO Last administered on 02/23/17 09:24; Start 02/23 at 09:00 Spironolactone (Aldactone) 25 mg DAILY PO Last administered on 02/23/17 09:24; Start 02/23/17 at 09:00 Tamsulosin HCl (Flomax) 0.4 mg HS PO Last administered on 02/22/17 21:52; Start 02/22/17 at 21:00 Tiotropium Cros[place] (Spiriva Inh) 18 mcg DAILY INH Last administered on 09:00; Start 02/23/17 at 09:00 Furosemide (Lasix Inj) 40 mg BID@06,12,18 IV PUSH Last administered on 11:27; Start 02/22/17 at 18:00 Miscellaneous Information Patient in critical care unit? Ass... [id number] .[id number] Last administered on 02/22/17 18:00; Start 02/22/17 at 18:00 Chlorhexidine Gluconate (Chlorhexidine 2% Cloth) 3 pack DAILY@04 TOPICAL Last administered on 02/22/17 21:57; Start 02/23/17 at 04:00; Stop 02/27/17 at 04:01 Chlorhexidine Gluconate (Chlorhexidine 2% Cloth) 3 pack UNSCH PRN TOPICAL HYGIENIC CARE; Start 02/22/17 at 18:00; Stop 02/27/17 at 17:55 A/P Assessment and Plan 81-year-old male with past medical history of A. fib, HLD, HTN, CHF, CAD, COPD, BPH, PUD, CKD who presents with shortness of breath Acute respiratory failure: Presented with shortness of breath and hypoxia. ABG reviewed. Likely multifactorial, although appears more secondary to CHF exacerbation as below. Received IV Solu-Medrol and Lasix in the ED. Continue supplemental oxygen as needed. Acute exacerbation of chronic systolic CHF: Reviewed: Chest x-ray with pulmonary edema. BNP 1025, previously 532 on . Echocardiogram 09/26/16 with severely reduced systolic function, EF 2025 %. -Continue carvedilol, ramipril, and Aldactone. -Clinically patient stated he is improving, but patient only had 350 cc of urine output with intake of 700 cc. Will discontinue Lasix and try Bumex IV. -Continue with strict ins and outs. Continue monitor creatinine. Avoid nephrotoxins. COPD with chronic respiratory failure: On home O2, 4 L. Scheduled and as needed nebs. Continue Spiriva. Atrial fibrillation: Chronic, stable. Continue carvedilol, digoxin, amiodarone. Holding anticoagulation. Chronic anticoagulation with Coumadin with supratherapeutic INR: On Coumadin for atrial fibrillation and history of DVT/PE. INR 4.4 on admission now 3.3. No signs of bleeding at this time. Hold Coumadin and monitor INR. BPH: With indwelling West catheter. Maintain West. Continue Flomax and Proscar. CKD stage III: Creatinine 1.31, previously 1.19 on 09/28/16. Monitor. stable. DVT prophylaxis -SCDs. Discharge Planning Patient continues to be symptomatic and requires IV diuretics and close monitoring. Corrine Daily MD Feb 23, 2017 14:37
[2017-02-23] MEDS: BUMETANIDE INJ 1 MG/4 ML VIAL IV PUSH SCH (16:16)
[2017-02-23] MEDS: ATORVASTATIN 20 MG TAB PO SCH (21:07)
[2017-02-23] MEDS: POTASSIUM CHLORIDE 10 MEQ CONTROLLED RELEASE TAB PO SCH (21:08)
[2017-02-23] MEDS: TAMSULOSIN HCL 0.4 MG CAP PO SCH (21:08)
[2017-02-23] MEDS: CHLORHEXIDINE GLUCONATE 2 % 1 PACK (2 CLOTHS)(taper/protocol) TOPICAL SCH (21:09)
[2017-02-24] VITALS (15 sets, daily range): BP systolic 91–121; BP diastolic 57–79; PULSE 69–71; RESP 16–38; TEMP 97.2–98.2; O2SAT 91–96
[2017-02-24 07:30] LABS: BICARBONATE 32.8 MEQ/L (21.0-32.0); MAGNESIUM 2.1 MG/DL (1.5-2.5); POTASSIUM 3.8 MEQ/L (3.5-5.1)
[2017-02-24] MEDS: TIOTROPIUM BROMIDE 18 MCG INH INH SCH (09:00)
[2017-02-24] MEDS: SODIUM CHLORIDE 0.9% FLUSH 10 ML FLUSH IV FLUSH SCH ×2 (09:00→21:47)
[2017-02-24] MEDS: DIGOXIN 0.125 MG TAB PO SCH (09:42)
[2017-02-24] MEDS: CARVEDILOL 3.125 MG TAB PO SCH ×2 (09:42→21:44)
[2017-02-24] MEDS: RAMIPRIL 5 MG CAP PO SCH (09:42)
[2017-02-24] MEDS: DOCUSATE SODIUM 50 MG/SENNA 8.6 MG TAB PO SCH ×2 (09:42→21:00)
[2017-02-24] MEDS: FINASTERIDE 5 MG TAB PO SCH (09:42)
[2017-02-24] MEDS: AMIODARONE 200 MG TAB PO SCH (09:42)
[2017-02-24] MEDS: BUMETANIDE INJ 1 MG/4 ML VIAL IV PUSH SCH (09:42)
[2017-02-24] MEDS: SPIRONOLACTONE 25 MG TAB PO SCH (09:42)
[2017-02-24] MEDS: PANTOPRAZOLE SOD 40 MG DELAYED RELEASE TAB PO SCH (09:42)
[2017-02-24] MEDS: CIPROFLOXACIN 500 MG TAB PO SCH ×2 (09:42→21:43)
--- NOTE | 2017-02-24 12:48 | HHI.PR ---
Subjective Remarks Patient seen in follow-up for CHF He reports that he is feeling better. Shortness of breath has improved. He wants to start working with physical therapy. No chest pain. Objective Vitals Vital Signs Date Time Temp Pulse Resp B/P Pulse Ox O2 Delivery O2 Flow Rate FiO2 02/24/17 10:03 91 Nasal Cannula 2.00 02/24/17 10:00 71 02/24/17 08:00 70 02/24/17 07:00 94 Nasal Cannula 2.00 Humidified 02/24/17 06:00 69 02/24/17 05:00 69 17 93 02/24/17 04:00 69 02/24/17 04:00 97.5 69 26 93/63 91 02/24/17 03:00 69 20 92 02/24/17 02:20 95 Nasal Cannula 2.00 Humidified 02/24/17 02:00 70 02/24/17 02:00 70 38 95 02/24/17 01:00 69 23 93 02/24/17 00:00 69 02/24/17 00:00 69 18 91/57 96 02/24/17 00:00 97.2 69 18 91/57 96 02/24/17 00:00 96 Nasal Cannula 3.00 Humidified 02/23/17 22:00 72 02/23/17 21:51 95 Nasal Cannula 5.00 02/23/17 20:00 97.6 71 28 98/65 94 02/23/17 20:00 71 02/23/17 19:00 93 Nasal Cannula 5.00 Humidified 02/23/17 18:00 69 02/23/17 16:00 69 02/23/17 16:00 98.7 70 18 108/72 94 02/23/17 14:00 65 I/O 02/23/17 02/23/17 02/23/17 02/24/17 02/24/17 02/24/17 07:00 15:00 23:00 07:00 15:00 23:00 Intake Total 250 ml 200 ml 500 ml 150 ml Output Total 225 ml 2000 ml 1500 ml 500 ml Balance 25 ml -1800 ml -1000 ml -350 ml Intake Oral 250 ml 200 ml 500 ml 150 ml Output Urine Total 225 ml 2000 ml 1500 ml 500 ml Result Diagram: 02/23/17 0330 02/24/17 0436 Imaging Last Impressions Chest X-Ray 02/22/17 1205 Signed Impressions: Service Date/Time: Wednesday, February 22, 2017 12:22 - CONCLUSION: Radiographic findings consistent with intra-alveolar pulmonary edema. Yoel Rocha Jr., MD Objective Remarks GENERAL: Elderly male in no apparent distress. CARDIOVASCULAR: Normal rate and regular rhythm without murmurs, gallops, or rubs. RESPIRATORY: Good respiratory efforts. Diminished breath sounds bilaterally at the bases with some faint crackles. Rest of the lung velasquez clear to auscultation bilaterally. GASTROINTESTINAL: Abdomen soft, non-tender, non-distended. Normal active bowel sounds MUSCULOSKELETAL: Extremities without cyanosis, or edema. NEURO: Alert & Oriented x4 to person, place, time, situation. Moves all ext x4 PSYCH: Appropriate mood and affect. A/P Assessment and Plan 81-year-old male with past medical history of A. fib, HLD, HTN, CHF, CAD, COPD, BPH, PUD, CKD who presents with shortness of breath Acute respiratory failure: Presented with shortness of breath and hypoxia. ABG reviewed. Likely multifactorial, third more consistent with CHF. Acute exacerbation of chronic systolic CHF: Reviewed: Chest x-ray with pulmonary edema. BNP 1025, previously 532 on . Echocardiogram 09/26/16 with severely reduced systolic function, EF 2025 %. -Continue carvedilol, ramipril, and Aldactone. -Patient responded much better to IV Bumex. He is close to baseline. Will transition to oral Bumex. -Continue with strict ins and outs. Continue monitor creatinine. Avoid nephrotoxins. COPD with chronic respiratory failure: On home O2, 4 L. Scheduled and as needed nebs. Continue Spiriva. Atrial fibrillation: Chronic, stable. Continue carvedilol, digoxin, amiodarone. Holding anticoagulation. Chronic anticoagulation with Coumadin with supratherapeutic INR: On Coumadin for atrial fibrillation and history of DVT/PE. INR 4.4 on admission. resume Coumadin BPH: With indwelling West catheter. Maintain West. Continue Flomax and Proscar. CKD stage III: Renal function stable. Monitor. DVT prophylaxis -SCDs. Discharge Planning Okay to transfer to floor. Physical therapy to evaluate. If he continues to improve, possible discharge in next 1-2 days. Lawrence Rojas MD Feb 24, 2017 12:48
[2017-02-24] MEDS ORDERED: WARFARIN SOD 3 MG TAB PO SCH (16:00)
[2017-02-24] MEDS: POTASSIUM CHLORIDE 10 MEQ CONTROLLED RELEASE TAB PO SCH (21:43)
[2017-02-24] MEDS: TAMSULOSIN HCL 0.4 MG CAP PO SCH (21:43)
[2017-02-24] MEDS: ATORVASTATIN 20 MG TAB PO SCH (21:44)
[2017-02-25 00:26] VITALS: BP_SYST 105; PULSE 70; RESP 16; TEMP 97.5; O2SAT 93
[2017-02-25] MEDS: CHLORHEXIDINE GLUCONATE 2 % 1 PACK (2 CLOTHS)(taper/protocol) TOPICAL SCH (04:00)
[2017-02-25 04:32] VITALS: BP 122/64; PULSE 70; RESP 16; TEMP 97.6; O2SAT 96
[2017-02-25 08:00] VITALS: BP 117/75; PULSE 69; RESP 21; TEMP 97.3; O2SAT 92
[2017-02-25 08:10] VITALS: PULSE 70
[2017-02-25] MEDS: DIGOXIN 0.125 MG TAB PO SCH (08:46)
[2017-02-25] MEDS: AMIODARONE 200 MG TAB PO SCH (08:46)
[2017-02-25] MEDS: DOCUSATE SODIUM 50 MG/SENNA 8.6 MG TAB PO SCH (08:46)
[2017-02-25] MEDS: RAMIPRIL 5 MG CAP PO SCH (08:46)
[2017-02-25] MEDS: SPIRONOLACTONE 25 MG TAB PO SCH (08:46)
[2017-02-25] MEDS: CIPROFLOXACIN 500 MG TAB PO SCH (08:47)
[2017-02-25] MEDS: PANTOPRAZOLE SOD 40 MG DELAYED RELEASE TAB PO SCH (08:47)
[2017-02-25] MEDS: CARVEDILOL 3.125 MG TAB PO SCH (08:47)
[2017-02-25] MEDS: FINASTERIDE 5 MG TAB PO SCH (08:47)
[2017-02-25] MEDS: SODIUM CHLORIDE 0.9% FLUSH 10 ML FLUSH IV FLUSH SCH (08:49)
[2017-02-25] MEDS: TIOTROPIUM BROMIDE 18 MCG INH INH SCH (08:49)
[2017-02-25] MEDS ORDERED: BUMETANIDE 1 MG TAB PO SCH (09:00)
[2017-02-25 09:26] LABS: HEMATOCRIT 43.5 % (39.0-51.0); MEAN CELL VOLUME 92.5 FL (80.0-100.0); MEAN CORPUSCULAR HEMOGLOBIN 30.4 PG (27.0-34.0); MEAN CORPUSCULAR HGB CONC 32.8 % (32.0-36.0); PLATELET COUNT 136 TH/MM3 (150-450); RED BLOOD COUNT 4.71 MIL/MM3 (4.50-5.90); RED CELL DISTRIBUTION WIDTH 14.7 % (11.6-17.2); REVIEW FLAG FINAL; WHITE BLOOD COUNT 7.8 TH/MM3 (4.0-11.0)
[2017-02-25 09:30] LABS: PROTHROMBIN TIME - PATIENT 22.5 SEC (9.8-11.6)
[2017-02-25 09:46] LABS: BICARBONATE 29.2 MEQ/L (21.0-32.0); POTASSIUM 3.7 MEQ/L (3.5-5.1)
[2017-02-25 10:22] VITALS: O2SAT 93
[2017-02-25 12:00] VITALS: BP 112/66; PULSE 69; RESP 18; TEMP 97.8; O2SAT 93
[2017-02-25] MEDS ORDERED: BUME1TAB PO (14:36)
--- NOTE | 2017-02-25 14:37 | HHI.FF ---
Face to Face Verification Diagnosis: (1) Acute exacerbation of CHF (congestive heart failure) (2) HTN (hypertension) (3) Atrial fibrillation (4) COPD (chronic obstructive pulmonary disease) Physical Therapy Order: Evaluate and Treat, Improve ambulation, Strength and gait training Home Health Nursing Order: Medical education Signs/symptoms of disease process CHF education Oxygen administration education Nursing assessment with vital signs I have seen patient Igor Dias on 02/25/17. My clinical findings support the need for the requested home health care services because: Patient has SOB Deconditioned w/ increased weakness Limited ability to care for self I certify that my clinical findings support that this patient is homebound because: Need for psychosocial assistance Poor cardiac reserve Lawrence Rojas MD Feb 25, 2017 14:37
--- NOTE | 2017-02-25 14:38 | HHI.DS ---
Discharge Summary Admission Date Feb 22, 2017 at 13:35 Discharge Date: Feb 25, 2017 Admitting Diagnosis chf exacerbation (1) Acute exacerbation of CHF (congestive heart failure) ICD Code: I50.9 (2) Hypoxia ICD Code: R09.02 (3) COPD (chronic obstructive pulmonary disease) ICD Code: J44.9 (4) HTN (hypertension) ICD Code: I10 (5) Atrial fibrillation ICD Code: I48.91 Procedures None Brief History - From Admission HPI from the admitting physician. 81-year-old male with past medical history of A. fib, HLD, HTN, CHF, CAD, COPD, BPH, PUD, CKD who presents with shortness of breath. The patient reports increasing shortness of breath over the past few days. He states he monitors his oxygen saturation which is normally in the mid 90s, but has been trending down to 86% at home. He denies any recent illness or infection. He denies any chest pain. He states that he has been feeling more unsteady on his feet. He does have an indwelling West catheter. No other complaints at this time. CBC/BMP: 02/25/17 0555 02/25/17 0555 Significant Findings Laboratory Tests Test 02/23/17 02/23/17 02/24/17 02/25/17 03:30 04:20 04:36 05:55 Platelet Count 130 TH/MM3 136 TH/MM3 (150-450) (150-450) Neutrophils (%) (Auto) 94.9 % (16.0-70.0) Lymphocytes (%) (Auto) 3.6 % (9.0-44.0) Lymphocytes # (Auto) 0.3 TH/MM3 (1.0-4.8) Creatinine 1.37 MG/DL 1.35 MG/DL (0.60-1.30) (0.60-1.30) Estimat Glomerular Filtration 50 ML/MIN (>89) 51 ML/MIN (>89) 59 ML/MIN (>89) Rate Random Glucose 193 MG/DL (74-106) Aspartate Amino Transf 13 U/L (15-37) (AST/SGOT) Total Protein 6.3 GM/DL (6.4-8.2) Albumin 2.6 GM/DL (3.4-5.0) Prothrombin Time 37.5 SEC 22.5 SEC (9.8-11.6) (9.8-11.6) Carbon Dioxide Level 32.8 MEQ/L (21.0-32.0) Blood Urea Nitrogen 27 MG/DL (7-18) 28 MG/DL (7-18) Imaging Last Impressions Chest X-Ray 02/22/17 1205 Signed Impressions: Service Date/Time: Wednesday, February 22, 2017 12:22 - CONCLUSION: Radiographic findings consistent with intra-alveolar pulmonary edema. Yoel Rocha Jr., MD PE at Discharge GENERAL: Elderly male in no apparent distress. CARDIOVASCULAR: Normal rate and regular rhythm without murmurs, gallops, or rubs. RESPIRATORY: Good respiratory efforts. Diminished breath sounds bilaterally at the bases with some faint crackles. Rest of the lung velasquez clear to auscultation bilaterally. GASTROINTESTINAL: Abdomen soft, non-tender, non-distended. Normal active bowel sounds MUSCULOSKELETAL: Extremities without cyanosis, or edema. NEURO: Alert & Oriented x4 to person, place, time, situation. Moves all ext x4 PSYCH: Appropriate mood and affect. Pt update on day of discharge Patient reports his breathing is back at baseline. Wants to be discharged. Hospital Course 81-year-old male with past medical history of A. fib, HLD, HTN, CHF, CAD, COPD, BPH, PUD, CKD who presents with shortness of breath. Evaluation and treatment course detailed below: Acute respiratory failure: Presented with shortness of breath and hypoxia. ABG reviewed. Likely multifactorial, more consistent with CHF. Acute exacerbation of chronic systolic CHF: Reviewed: Chest x-ray with pulmonary edema. BNP 1025, previously 532 on . Echocardiogram 09/26/16 with severely reduced systolic function, EF 2025 %. -Continue carvedilol, ramipril, and Aldactone. -Patient responded much better to IV Bumex. He is close to baseline. He was transitioned to oral Bumex. - Status returned to his baseline COPD with chronic respiratory failure: On home O2, 4 L. Scheduled and as needed nebs. Continue Spiriva. Atrial fibrillation: Chronic, stable. Continue carvedilol, digoxin, amiodarone. Resume. Chronic anticoagulation with Coumadin with supratherapeutic INR: On Coumadin for atrial fibrillation and history of DVT/PE. INR 4.4 on admission. Coumadin initially held but resumed prior to DC BPH: With indwelling West catheter. Maintain West. Continue Flomax and Proscar. CKD stage III: Renal function stable. Pt Condition on Discharge: Good Discharge Disposition: Disch w/ Home Health Serv Discharge Time: > 30 minutes Discharge Instructions DIET: Follow Instructions for: Heart Healthy Diet Activities you can perform: See Additionl Instruction Other Activity Instructions: Per PT instructions. Use assistive device Follow up Referrals: PCP Follow-up - 2 Weeks New Medications: Bumetanide (Bumetanide) 1 Mg Tab 1 MG PO DAILY #30 TAB Continued Medications: Acetaminophen-Codeine (Acetaminophen-Codeine) 300-30 mg Tab 2 TAB PO Q6HR PRN pain #30 Ref 0 TAB Amiodarone (Amiodarone) 200 Mg Tab 200 MG PO DAILY arrhythmia #30 Ref 3 TAB Atorvastatin (Atorvastatin) 40 Mg Tab 60 MG PO HS Cholesterol Management #30 Ref 0 TAB Carvedilol (Carvedilol) 3.125 Mg Tab 3.125 MG PO BID #60 Ref 0 TAB Digoxin (Digoxin) 0.125 Mg Tab 0.125 MG PO DAILY Regulate Heart Beat #30 Ref 0 TAB Finasteride (Proscar) 5 Mg Tab 5 MG PO DAILY Do not crush. Manage Prostate Problems #30 Ref 0 TAB Ipratropium-Albuterol Neb (Duoneb) 0.5-2.5 Mg/3 Ml Neb 1 AMPULE NEB Q4HR PRN SHORTNESS OF BREATH #0 ML Lorazepam (Lorazepam) 0.5 Mg Tab 0.5 MG PO Q12HR PRN ANXIETY #10 Ref 0 TAB Pantoprazole (Pantoprazole) 40 Mg Tab 40 MG PO DAILY Reflux #30 Ref 0 TAB Potassium Chloride ER (K-Tab) 10 Meq Tab 10 MEQ PO HS Electrolyte Replacement #60 Ref 0 TAB Ramipril (Ramipril) 5 Mg Cap 5 MG PO DAILY #60 Ref 0 CAP Spironolactone (Spironolactone) 25 Mg Tab 25 MG PO DAILY #30 Ref 0 TAB Tamsulosin (Tamsulosin) 0.4 Mg Cap 0.4 MG PO HS Manage Prostate Problems #30 Ref 0 CAP Tiotropium Inh (Spiriva Handihaler) 18 Mcg Cap 18 MCG INH DAILY 1 capsule = 18 mcg COPD #30 Ref 0 CAP Warfarin (Warfarin) 3 Mg Tab 3 MG PO MON,MON Blood Clot Prevention #30 Ref 0 TAB Warfarin (Warfarin) 4 Mg Tab 4 MG PO mon,mon, ,sat Blood Clot Prevention #30 Ref 0 TAB Discontinued Medications: Ciprofloxacin (Ciprofloxacin) 500 Mg Tab 500 MG PO BID Infection Ref 0 TAB Furosemide (Furosemide) 40 Mg Tab 40 MG PO BID #60 Ref 0 TAB Lawrence Rojas MD Feb 25, 2017 14:38
== END 2017-02-25 16:52 | disposition home or self-care (01) | DRG 291 ==
LOC: NEPC 11:55 → NEDA 13:35 → HIMW 17:05 → N04A 02-24 15:20
PROVIDERS: ADMIT Family Medicine; ATTEND Family Medicine
DX: I13.0 Hypertensive heart and chronic kidney disease with heart failure and stage 1 through stage 4 chronic kidney disease, or unspecified chronic kidney disease (principal); J96.21 Acute and chronic respiratory failure with hypoxia; I27.2 Other secondary pulmonary hypertension; I50.23 Acute on chronic systolic (congestive) heart failure; I48.2 Chronic atrial fibrillation; J44.9 Chronic obstructive pulmonary disease, unspecified; K21.9 Gastro-esophageal reflux disease without esophagitis; I25.10 Atherosclerotic heart disease of native coronary artery without angina pectoris; H91.91 Unspecified hearing loss, right ear; E78.5 Hyperlipidemia, unspecified; N40.0 Benign prostatic hyperplasia without lower urinary tract symptoms; R79.1 Abnormal coagulation profile; N18.3 Chronic kidney disease, stage 3 (moderate); Z99.81 Dependence on supplemental oxygen; Z79.01 Long term (current) use of anticoagulants; Z95.810 Presence of automatic (implantable) cardiac defibrillator; Z87.891 Personal history of nicotine dependence; Z86.718 Personal history of other venous thrombosis and embolism; Z86.711 Personal history of pulmonary embolism
CPT/HCPCS: 36600; 71010; 80048; 80053; 80162; 82550; 82805; 83605; 83735; 83880; 84484; 85025; 85027; 85610; 85730; 87040; 87641; 93005; 94640; 94664; 96374; 96375; J1940; J2930

== ENCOUNTER 2017-10-06 12:47 | Inpatient (IN) | payer OTHER, MEDICARE ==
[~2017-10-06] VITALS: Ht 193 cm; Wt 93.1 kg
[2017-10-06] VITALS (13 sets, daily range): BP systolic 106–138; BP diastolic 65–85; PULSE 69–121; RESP 16–24; TEMP 97.2–97.5; O2SAT 89–95
[~2017-10-06 12:47] MED LIST changes: +BUME1TAB PO; -CIPR500T2 PO; -FURO40TA PO; -LORA-373 PO; +LORA0.5T PO; -PRED10PA PO
[2017-10-06] MEDS: RESP: ALBUTEROL 2.5 MG/IPRATROPIUM 0.5 MG NEB (SCH) INH (13:40)
[2017-10-06] MEDS ORDERED: SODIUM CHLORIDE 0.9% FLUSH 10 ML FLUSH IVF PRN (13:45)
[2017-10-06] MEDS ORDERED: methylPREDNISolone SOD SUCC 125 MG/2 ML VIAL IV PUSH ONE (13:45)
--- NOTE | 2017-10-06 13:56 | RADRPT ---
EXAM DATE/TIME: 10/06/2017 13:42 [facility] COMPARISON: CHEST SINGLE AP, February 22, 2017, 12:22. INDICATIONS : Short of breath. MEDICAL HISTORY : None. SURGICAL HISTORY : Pacemaker. ENCOUNTER: Initial ACUITY: 1 day PAIN SCORE: 0/10 LOCATION: Bilateral chest FINDINGS: Again noted is a bipolar pacemaker overlying the left hemithorax. Left ventricular cardiomegaly is ap preciated with relatively distinct vascularity. Bibasilar opacities persist in part on the right repr esenting effusion. CONCLUSION: Overall stable appearance of the chest left ventricular cardiomegaly with normal vascularity a pacema ker in place. Bibasilar densities are unchanged on the right possibly representing in the majority of the effusion. Rian Meade MD on October 06, 2017 at 13:53 Board Certified Radiologist. This report was verified electronically.
[2017-10-06 14:08] LABS: AUTOMATED NEUTROPHIL # 7.7 TH/MM3 (1.8-7.7); BASOPHIL % 0.3 % (0.0-2.0); EOSINOPHIL % 0.2 % (0.0-4.0); HEMATOCRIT 46.6 % (39.0-51.0); HEMOGLOBIN 15.1 GM/DL (13.0-17.0); LYMPH % 4.4 % (9.0-44.0); LYMPHOCYTE # 0.4 TH/MM3 (1.0-4.8); MEAN CELL VOLUME 89.8 FL (80.0-100.0); MEAN CORPUSCULAR HEMOGLOBIN 29.1 PG (27.0-34.0); MEAN CORPUSCULAR HGB CONC 32.4 % (32.0-36.0); MEAN PLATELET VOLUME 8.6 FL (7.0-11.0); MONO % 10.5 % (0.0-8.0); NEUT % 84.6 % (16.0-70.0); PLATELET COUNT 155 TH/MM3 (150-450); RED BLOOD COUNT 5.19 MIL/MM3 (4.50-5.90); RED CELL DISTRIBUTION WIDTH 18.1 % (11.6-17.2); WHITE BLOOD COUNT 9.1 TH/MM3 (4.0-11.0)
[2017-10-06 14:24] LABS: INTERNATIONAL NORMALIZED RATIO 3.1 RATIO
[2017-10-06 14:25] LABS: ALBUMIN 3.2 GM/DL (3.4-5.0); ALT (GPT) 29 U/L (12-78); AST (GOT) 22 U/L (15-37); BICARBONATE 25.7 MEQ/L (21.0-32.0); BLOOD UREA NITROGEN 24 MG/DL (7-18); CALCIUM 8.8 MG/DL (8.5-10.1); CHLORIDE 103 MEQ/L (98-107); GLOMERULAR FILTRATION RATE 39 ML/MIN (>89); GLUCOSE,RANDOM 116 MG/DL (74-106); SODIUM (NA) 139 MEQ/L (136-145)
[2017-10-06 14:39] LABS: ALKALINE PHOSPHATASE 108 U/L (45-117); DIGOXIN 1.8 NG/ML (0.8-2.0); TOTAL BILIRUBIN ADULT 1.3 MG/DL (0.2-1.0); TROPONIN I 0.04 NG/ML (0.02-0.05)
[2017-10-06] MEDS ORDERED: FUROSEMIDE 40 MG/4 ML VIAL IV PUSH ONE (15:00)
[2017-10-06] MEDS ORDERED: SODIUM CHLORIDE 0.9% FLUSH 10 ML FLUSH IV FLUSH PRN (15:45)
[2017-10-06] MEDS ORDERED: ACETAMINOPHEN/HYDROcodone 325 MG/5 MG TAB PO PRN (15:45)
[2017-10-06] MEDS ORDERED: LORazepam 0.5 MG TAB PO PRN (15:45)
[2017-10-06] MEDS ORDERED: ACETAMINOPHEN 325 MG TAB PO PRN ×2 (15:45)
[2017-10-06] MEDS ORDERED: NALOXONE HCL 0.4 MG/ML AMP IV PUSH PRN (15:45)
[2017-10-06] MEDS ORDERED: PILL SPLITTER OTHER PRN (16:00)
--- NOTE | 2017-10-06 16:12 | PD ---
HPI Chief Complaint: Respiratory Symptoms Time Seen by Provider: 13:21 Travel History International Travel<30 days: No Contact w/Intl Traveler<30days: No Traveled to known affect area: No History of Present Illness HPI This is an 82-year-old male who has a history of COPD and congestive heart failure who presents to the emergency department with 1 week of increasing shortness of breath, constant, worse with walking, improves with rest associated with generalized malaise and some rhinorrhea. He is on 4-1/2 L of oxygen at home. He follows with Dr. Garza at [facility]. He has not noticed increased lower extremity swelling. He denies any chest pain. PFSH Past Medical History Hx Anticoagulant Therapy: Yes (WARFARIN) AAA: Yes (REPAIRED 2004) Atrial Fibrillation: Yes Blood Disorders: No Heart Rhythm Problems: Yes (AFIB) Cancer: No Cardiovascular Problems: Yes (HTN, GA, CHF) High Cholesterol: Yes Chest Pain: Yes Congestive Heart Failure: Yes COPD: Yes Coronary Artery Disease: Yes Diminished Hearing: Yes (RIGHT EAR) Deep Vein Thrombosis: Yes Endocrine: No Gastrointestinal Disorders: Yes (GI BLEED) GERD: Yes Genitourinary: Yes (VARGAS ) Hiatal Hernia: No Hypertension: Yes Immune Disorder: No Implanted Vascular Access Dvce: Yes Medical other: Yes (RECENT GI BLEED) Musculoskeletal: No Neurologic: No Psychiatric: No Reproductive: No Respiratory: Yes (ASTHMA, COPD) Immunizations Current: Yes (HAD CHILDHOOD ILLNESS IMMUNIZATIONS) Myocardial Infarction: Yes (2010) Pneumonia: Yes Sleep Apnea: Yes Ulcer: Yes PNEUMOCCOCAL Vaccine (Year): 2 Past Surgical History Abdominal Aneurysm Repair: Yes (2004) Abdominal Surgery: Yes (CHOLECYSTECTOMY) AICD: Yes Arteriovenous Shunt: No Body Medical Devices: defibrillator 2012, 2015 Cardiac Surgery: Yes (STENT LAD/ Defibrillator, CARDIAC CATH) Cholecystectomy: Yes Coronary Stent: Yes (APRIL 2011) Ear Surgery: No Endocrine Surgery: No Eye Surgery: No Genitourinary Surgery: No Gynecologic Surgery: No Insulin Pump: No Joint Replacement: No Oral Surgery: No Pacemaker: Yes (DEFIBRILLATOR) Thoracic Surgery: No Tonsillectomy: Yes Other Surgery: Yes (NICHO FILTER) Social History Alcohol Use: No Tobacco Use: No (QUIT LAST JULY ) Substance Use: No Allergies-Medications (Allergen,Severity, Reaction): Coded Allergies: penicillin G (Unverified Allergy, Unknown, UNKNWON REACTION, 10/06/17) PATIENT STATES THAT HE IS NOT ALLERGIC TO THIS MEDICATION. Reported Meds & Prescriptions Reported Meds & Active Scripts Active Bumetanide 1 Mg Tab 1 Mg PO DAILY Spiriva Handihaler (Tiotropium Inh) 18 Mcg Cap 18 Mcg INH DAILY 1 capsule = 18 mcg Lorazepam 0.5 Mg Tab 0.5 Mg PO Q12HR PRN Duoneb (Ipratropium-Albuterol Neb) 0.5-2.5 Mg/3 Ml Neb 1 Ampule NEB Q4HR PRN Amiodarone (Amiodarone HCl) 200 Mg Tab 200 Mg PO DAILY Acetaminophen-Codeine 300-30 mg Tab 2 Tab PO Q6HR PRN Reported Spironolactone 25 Mg Tab 25 Mg PO DAILY Warfarin 4 Mg Tab 4 Mg PO MON,MON, ,SAT Warfarin 3 Mg Tab 3 Mg PO MON,MON K-Tab (Potassium Chloride) 10 Meq Tab 10 Meq PO HS Proscar (Finasteride) 5 Mg Tab 5 Mg PO DAILY Do not crush. Carvedilol 3.125 Mg Tab 3.125 Mg PO BID Pantoprazole (Pantoprazole Sodium) 40 Mg Tab 40 Mg PO DAILY Ramipril 5 Mg Cap 5 Mg PO DAILY Atorvastatin (Atorvastatin Calcium) 40 Mg Tab 60 Mg PO HS Tamsulosin (Tamsulosin HCl) 0.4 Mg Cap 0.4 Mg PO HS Digoxin 0.125 Mg Tab 0.125 Mg PO DAILY Review of Systems Except as stated in HPI: all other systems reviewed are Neg Physical Exam Narrative GENERAL: Frail elderly male in no acute distress SKIN: Focused skin assessment warm and dry. HEAD: Atraumatic. Normocephalic. EYES: Pupils equal and round. No injection or drainage. ENT: Moist mucous membranes NECK: Trachea midline. CARDIOVASCULAR: Regular rate and rhythm. No murmur appreciated. RESPIRATORY: Rales in the bilateral lung bases. GASTROINTESTINAL: Abdomen soft, non-tender, nondistended. MUSCULOSKELETAL: No obvious deformities. NEUROLOGICAL: Awake and alert. No obvious cranial nerve deficits. Moving all extremities. PSYCHIATRIC: Appropriate mood and affect; insight and judgment normal. Data Data Last Documented VS Vital Signs Date Time Temp Pulse Resp B/P (MAP) Pulse Ox O2 Delivery O2 Flow Rate FiO2 10/06/17 14:39 83 16 138/85 (102) 92 Nasal Cannula 4.50 10/06/17 12:48 97.5 Orders Orders Complete Blood Count With Diff (10/06/17 13:32) Comprehensive Metabolic Panel (10/06/17 13:32) B-Type Natriuretic Peptide (10/06/17 13:32) Act Partial Throm Time (Ptt) (10/06/17 13:32) Prothrombin Time / Inr (Pt) (10/06/17 13:32) Troponin I (10/06/17 13:32) Iv Access Insert/Monitor (10/06/17 13:32) Electrocardiogram (10/06/17 13:32) Ecg Monitoring (10/06/17 13:32) Oximetry (10/06/17 13:32) Oxygen Administration (10/06/17 13:32) Chest, Single Ap (10/06/17 13:32) Sodium Chloride 0.9% Flush (Ns Flush) (10/06/17 13:45) Methylprednisolone So Succ Inj (Solumedr (10/06/17 13:45) Albuterol-Ipratropium Neb (Duoneb Neb) (10/06/17 13:45) Digoxin (10/06/17 13:32) Influenzae A/B Antigen (10/06/17 13:32) Furosemide Inj (Lasix Inj) (10/06/17 15:00) Admit Order (Ed Use Only) (10/06/17 15:23) Labs Laboratory Tests Test 10/06/17 13:42 White Blood Count 9.1 TH/MM3 Red Blood Count 5.19 MIL/MM3 Hemoglobin 15.1 GM/DL Hematocrit 46.6 % Mean Corpuscular Volume 89.8 FL Mean Corpuscular Hemoglobin 29.1 PG Mean Corpuscular Hemoglobin Concent 32.4 % Red Cell Distribution Width 18.1 % Platelet Count 155 TH/MM3 Mean Platelet Volume 8.6 FL Neutrophils (%) (Auto) 84.6 % Lymphocytes (%) (Auto) 4.4 % Monocytes (%) (Auto) 10.5 % Eosinophils (%) (Auto) 0.2 % Basophils (%) (Auto) 0.3 % Neutrophils # (Auto) 7.7 TH/MM3 Lymphocytes # (Auto) 0.4 TH/MM3 Monocytes # (Auto) 1.0 TH/MM3 Eosinophils # (Auto) 0.0 TH/MM3 Basophils # (Auto) 0.0 TH/MM3 CBC Comment DIFF FINAL Differential Comment Prothrombin Time 31.0 SEC Prothromb Time International Ratio 3.1 RATIO Activated Partial Thromboplast Time 37.5 SEC Blood Urea Nitrogen 24 MG/DL Creatinine 1.70 MG/DL Random Glucose 116 MG/DL Total Protein 7.0 GM/DL Albumin 3.2 GM/DL Calcium Level 8.8 MG/DL Alkaline Phosphatase 108 U/L Aspartate Amino Transf (AST/SGOT) 22 U/L Alanine Aminotransferase (ALT/SGPT) 29 U/L Total Bilirubin 1.3 MG/DL Sodium Level 139 MEQ/L Potassium Level 4.1 MEQ/L Chloride Level 103 MEQ/L Carbon Dioxide Level 25.7 MEQ/L Anion Gap 10 MEQ/L Estimat Glomerular Filtration Rate 39 ML/MIN Troponin I 0.04 NG/ML B-Type Natriuretic Peptide 1665 PG/ML Digoxin Level 1.8 NG/ML MDM Medical Decision Making Medical Screen Exam Complete: Yes Emergency Medical Condition: Yes Interpretation(s) Afebrile, tachycardic, hypoxic No leukocytosis Renal insufficiency Troponin is 0.04 BNP is 1665 Digoxin is 1.8 Last 24 hours Impressions Chest X-Ray 10/06/17 1332 Signed Impressions: Service Date/Time: Friday, October 06, 2017 13:42 - CONCLUSION: Overall stable appearance of the chest left ventricular cardiomegaly with normal vascularity a pacemaker in place. Bibasilar densities are unchanged on the right possibly representing in the majority of the effusion. Rian Meade MD Differential Diagnosis Congestive heart failure, pneumonia, influenza, COPD exacerbation Narrative Course This is an 82-year-old male who presents to the emergency department with increasing shortness of breath. He was placed on a monitor and an IV was established. He has difficulty oxygenating on his typical 4-1/2 L and required 6 L to maintain an oxygen saturation of 90-92%. Chest x-ray demonstrates volume overload. BNP is 1600 consistent with worsening congestive heart failure. He was also treated empirically for COPD with steroids and bronchodilator treatments. Patient will be admitted for continued diuresis. Physician Communication Physician Communication Discussed with Dr. Sood Diagnosis Primary Impression: Acute exacerbation of CHF (congestive heart failure) Qualified Codes: I50.23 - Acute on chronic systolic (congestive) heart failure Admitting Information Admitting Physician Requests: Admit Highet,Harriet H. MD Oct 06, 2017 16:11
--- NOTE | 2017-10-06 16:21 | HHI.HP ---
HPI Service [facility] Primary Care Physician Louis Glasgow MD Admission Diagnosis congestive heart failure Diagnoses: Chief Complaint: Shortness of breath Travel History International Travel<30 Days: No Contact w/Intl Traveler <30 Da: No Traveled to Known Affected Are: No History of Present Illness The patient is an 82-year-old male with a past medical history of CHF and COPD on home oxygen who is presenting to the hospital with increased shortness of breath, chest tightness and weakness. The patient says that he has shortness of breath at baseline but recently it has been getting worse. It is associated with tightness in his chest. He says he has been coughing up mucus, but is unsure of the color as he has been swallowing it. He reports feeling like he has a dry mouth. He has been drinking a lot more water because of that. He has been experiencing a runny nose. He says he lives with his sister and uses a cane to ambulate but has been much weaker over the past few days. He says he has heart doctor and last saw him a few months ago. He said he had a stress test which seemed to be negative. He was told his ejection fraction went down to 15%. Review of Systems Except as stated in HPI: all other systems reviewed are Neg Past Family Social History Past Medical History Chronic systolic congestive heart failure COPD on home oxygen Hypertension Hyperlipidemia BPH with indwelling [place] History of DVT/PE AAA status post repair Chronic kidney disease stage III Pulmonary hypertension Past Surgical History Prostate biopsy Endovascular repair of AAA [place] IVC filter placement Cardiac catheterization with PCI AV arjun ablation AICD placement Allergies: Coded Allergies: penicillin G (Unverified Allergy, Unknown, UNKNWON REACTION, 10/06/17) PATIENT STATES THAT HE IS NOT ALLERGIC TO THIS MEDICATION. Active Ordered Medications Current Medications Medications (Trade) Dose Ordered Sig/Joni Route Start Time Stop Time Status Last Admin (Cordarone) 200 mg DAILY PO 10/07/17 09:00 (Lipitor) 60 mg HS PO 10/06/17 21:00 (Coreg) 3.125 mg BID PO 10/06/17 21:00 (Lanoxin) 0.125 mg DAILY PO 10/07/17 09:00 (Proscar) 5 mg DAILY PO 10/07/17 09:00 (Ativan) 0.5 mg Q12HR PRN PO 10/06/17 15:45 (Protonix) 40 mg DAILY PO 10/07/17 09:00 (Flomax) 0.4 mg HS PO 10/06/17 21:00 (Lasix Inj) 40 mg BID@,18 IV PUSH 10/06/17 18:00 (NS Flush) 2 ml UNSCH PRN IV FLUSH 10/06/17 15:45 (NS Flush) 2 ml BID IV FLUSH 10/06/17 21:00 (Tylenol) 650 mg Q4H PRN PO 10/06/17 15:45 (Tylenol) 650 mg Q6H PRN PO 10/06/17 15:45 (Dutton 5-325 Mg) 1 tab Q4H PRN PO 10/06/17 15:45 (Narcan Inj) 0.4 mg UNSCH PRN IV PUSH 10/06/17 15:45 (Kayleigh-Colace) 1 tab BID PO 10/06/17 21:00 (Pill Splitter) 1 ea UNSCH PRN OTHER 10/06/17 16:00 Family History His father passed with from a heart attack at 62 Social History The patient quit smoking 1 year ago. He does not drink alcohol. Physical Exam Vital Signs Vital Signs Date Time Temp Pulse Resp B/P (MAP) Pulse Ox O2 Delivery O2 Flow Rate FiO2 10/06/17 14:39 83 16 138/85 (102) 92 Nasal Cannula 4.50 10/06/17 14:06 94 Nasal Cannula 6.00 10/06/17 13:46 90 Nasal Cannula 5.00 10/06/17 13:25 24 92 Nasal Cannula 2.00 10/06/17 12:54 24 93 Nasal Cannula 4.50 10/06/17 12:54 93 Nasal Cannula 4.50 10/06/17 12:48 97.5 121 16 132/75 (94) 89 Physical Exam GENERAL: Frail elderly male in no acute distress. SKIN: Focused skin assessment warm and dry. HEAD: Atraumatic. Normocephalic. EYES: Pupils equal and round. No injection or drainage. ENT: Moist mucous membranes NECK: Trachea midline. CARDIOVASCULAR: Regular rate and rhythm. No murmur appreciated. RESPIRATORY: Rales in the bilateral lung bases, worse on the right. GASTROINTESTINAL: Abdomen soft, non-tender, nondistended. MUSCULOSKELETAL: No obvious deformities. Trace lower extremity edema. NEUROLOGICAL: Awake and alert. No obvious cranial nerve deficits. Moving all extremities. PSYCHIATRIC: Appropriate mood and affect; insight and judgment normal. Laboratory Laboratory Tests Test 10/06/17 13:42 White Blood Count 9.1 Red Blood Count 5.19 Hemoglobin 15.1 Hematocrit 46.6 Mean Corpuscular Volume 89.8 Mean Corpuscular Hemoglobin 29.1 Mean Corpuscular Hemoglobin Concent 32.4 Red Cell Distribution Width 18.1 Platelet Count 155 Mean Platelet Volume 8.6 Neutrophils (%) (Auto) 84.6 Lymphocytes (%) (Auto) 4.4 Monocytes (%) (Auto) 10.5 Eosinophils (%) (Auto) 0.2 Basophils (%) (Auto) 0.3 Neutrophils # (Auto) 7.7 Lymphocytes # (Auto) 0.4 Monocytes # (Auto) 1.0 Eosinophils # (Auto) 0.0 Basophils # (Auto) 0.0 CBC Comment DIFF FINAL Differential Comment Prothrombin Time 31.0 Prothromb Time International Ratio 3.1 Activated Partial Thromboplast Time 37.5 Blood Urea Nitrogen 24 Creatinine 1.70 Random Glucose 116 Total Protein 7.0 Albumin 3.2 Calcium Level 8.8 Alkaline Phosphatase 108 Aspartate Amino Transf (AST/SGOT) 22 Alanine Aminotransferase (ALT/SGPT) 29 Total Bilirubin 1.3 Sodium Level 139 Potassium Level 4.1 Chloride Level 103 Carbon Dioxide Level 25.7 Anion Gap 10 Estimat Glomerular Filtration Rate 39 Troponin I 0.04 B-Type Natriuretic Peptide 1665 Digoxin Level 1.8 Date/Time Source Procedure Growth Status 10/06/17 13:45 Nasal Washing Influenza Types A,B Antigen (JOSE) - Final Complete Result Diagram: 10/06/17 1342 10/06/17 1342 Imaging Last Impressions Chest X-Ray 10/06/17 1332 Signed Impressions: Service Date/Time: Friday, October 06, 2017 13:42 - CONCLUSION: Overall stable appearance of the chest left ventricular cardiomegaly with normal vascularity a pacemaker in place. Bibasilar densities are unchanged on the right possibly representing in the majority of the effusion. MD Slime Gibbons VTE Risk Assessment Caprini VTE Risk Assessment: Mod/High Risk (score >= 2) Caprini Risk Assessment Model Point Value = 1 Point Value = 2 Point Value = 3 Point Value = 5 Age 41-60 Minor surgery BMI > 25 kg/m2 Swollen legs Varicose veins or History of unexplained or recurrent spontaneous Oral contraceptives or hormone replacement Sepsis (< 1 month) Serious lung disease, including pneumonia (< 1 month) Abnormal pulmonary function Acute myocardial infarction Congestive heart failure (< 1 month) History of inflammatory bowel disease Medical patient at bed rest Age 61-74 Arthroscopic surgery Major open surgery (> 45 min) Laparoscopic surgery (> 45 min) Malignancy Confined to bed (> 72 hours) Immobilizing plaster cast Central venous access Age >= 75 History of VTE Family history of VTE Factor V Leiden Prothrombin [id number] Lupus anticoagulant Anticardiolipin antibodies Elevated serum homocysteine Heparin-induced thrombocytopenia Other congenital or acquired thrombophilia Stroke (< 1 month) Elective arthroplasty Hip, pelvis, or leg fracture Acute spinal cord injury (< 1 month) Prophylaxis Regimen Total Risk Factor Score Risk Level Prophylaxis Regimen 0-1 Low Early ambulation 2 Moderate Order ONE of the following: *Sequential Compression Device (SCD) *Heparin 5000 units SQ BID 3-4 Higher Order ONE of the following medications: *Heparin 5000 units SQ TID *Enoxaparin/Lovenox 40 mg SQ daily (WT < 150 kg, CrCl > 30 mL/min) *Enoxaparin/Lovenox 30 mg SQ daily (WT < 150 kg, CrCl > 10-29 mL/min) *Enoxaparin/Lovenox 30 mg SQ BID (WT < 150 kg, CrCl > 30 mL/min) AND/OR *Sequential Compression Device (SCD) 5 or more Highest Order ONE of the following medications: *Heparin 5000 units SQ TID (Preferred with Epidurals) *Enoxaparin/Lovenox 40 mg SQ daily (WT < 150 kg, CrCl > 30 mL/min) *Enoxaparin/Lovenox 30 mg SQ daily (WT < 150 kg, CrCl > 10-29 mL/min) *Enoxaparin/Lovenox 30 mg SQ BID (WT < 150 kg, CrCl > 30 mL/min) AND *Sequential Compression Device (SCD) Assessment and Plan Assessment and Plan Acute respiratory failure/ exacerbation of chronic systolic CHF Chest x-ray suggesting volume overload, however, stable. BNP elevated at 1665. Echocardiogram 09/26/16 with severely reduced systolic function, EF 20-25 %. EKG is paced. - Continue cardiac regimen. Hold ramipril and Aldactone in the setting of renal insufficiency. - Patient responded to IV Bumex on last hospitalization, however, was told we are out of it at this time. Start Lasix 40 mg IV twice a day and monitor. - Continue with strict ins and outs. - Telemetry. - Trend troponins. COPD With chronic respiratory failure. On home O2, 4 L. - as needed nebs. - Continue oxygen. Atrial fibrillation Chronic, stable. - Continue carvedilol, digoxin, amiodarone. - Continue warfarin with pharmacy assistance. Acute on chronic renal failure Likely secondary to diuresis. - We'll need to continue diuresis in the setting of volume overload. - Nephrology consult if creatinine does not remain stable. - Avoid nephrotoxins. - Hold Aldactone and ramipril at this time. Deconditioning The patient appears rather weak. - Physical therapy and case management consult. DVT prophylaxis: Coumadin Code Status Full Discussed Condition With Pt, Dr. Pickens Physician Certification 2 Midnight Certification Type: Admission for Inpatient Services Order for Inpatient Services The services are ordered in accordance with Medicare regulations or non- Medicare payer requirements, as applicable. In the case of services not specified as inpatient-only, they are appropriately provided as inpatient services in accordance with the 2-midnight benchmark. Estimated LOS (days): 2 days is the estimated time the patient will need to remain in the hospital, assuming treatment plan goals are met and no additional complications. Post-Hospital Plan: Not yet determined Nick Sood DO Oct 06, 2017 16:21
[2017-10-06] MEDS: FUROSEMIDE 40 MG/4 ML VIAL IV PUSH SCH (18:00)
[2017-10-06] MEDS: DOCUSATE SODIUM 50 MG/SENNA 8.6 MG TAB PO SCH (21:08)
[2017-10-06] MEDS: CARVEDILOL 3.125 MG TAB PO SCH (21:08)
[2017-10-06] MEDS: ATORVASTATIN 40 MG TAB PO SCH (21:08)
[2017-10-06] MEDS: TAMSULOSIN HCL 0.4 MG CAP PO SCH (21:08)
[2017-10-06] MEDS: SODIUM CHLORIDE 0.9% FLUSH 10 ML FLUSH IV FLUSH SCH (21:09)
[2017-10-07] VITALS (11 sets, daily range): BP systolic 97–101; BP diastolic 54–66; PULSE 68–72; RESP 18–20; TEMP 97.4–98.3; O2SAT 91–99
[2017-10-07 07:58] LABS: AUTOMATED NEUTROPHIL # 5.9 TH/MM3 (1.8-7.7); BASOPHIL % 0.2 % (0.0-2.0); LYMPH % 3.6 % (9.0-44.0); LYMPHOCYTE # 0.2 TH/MM3 (1.0-4.8); MEAN CELL VOLUME 88.5 FL (80.0-100.0); MEAN CORPUSCULAR HEMOGLOBIN 28.8 PG (27.0-34.0); MEAN CORPUSCULAR HGB CONC 32.5 % (32.0-36.0); MEAN PLATELET VOLUME 8.6 FL (7.0-11.0); MONO % 3.3 % (0.0-8.0); MONOCYTE # 0.2 TH/MM3 (0-0.9); NEUT % 92.9 % (16.0-70.0); PLATELET COUNT 112 TH/MM3 (150-450); RED BLOOD COUNT 4.85 MIL/MM3 (4.50-5.90); RED CELL DISTRIBUTION WIDTH 17.6 % (11.6-17.2); WHITE BLOOD COUNT 6.4 TH/MM3 (4.0-11.0)
[2017-10-07 08:07] LABS: INTERNATIONAL NORMALIZED RATIO 2.1 RATIO; PROTHROMBIN TIME - PATIENT 21.4 SEC (9.8-11.6)
--- NOTE | 2017-10-07 08:24 | HHI.PR ---
Subjective Remarks in no acute distress. sob has improved to some extent. has occasional cough. denies chest pain. no fever. Objective Vitals Vital Signs Date Time Temp Pulse Resp B/P (MAP) Pulse Ox O2 Delivery O2 Flow Rate FiO2 10/07/17 04:00 90 Venturi Mask 35 10/07/17 03:48 69 10/07/17 03:42 97.5 70 18 97/62 (74) 91 10/07/17 00:00 91 Venturi Mask 6.00 35 10/06/17 23:44 69 10/06/17 23:20 97.3 69 18 106/68 (81) 91 10/06/17 20:09 90 Venturi Mask 6.00 35 10/06/17 20:04 70 10/06/17 19:40 91 Venturi Mask 6.00 35 10/06/17 19:38 80 Nasal Cannula 6.00 10/06/17 19:37 97.2 69 18 108/65 (79) 91 10/06/17 19:32 65 20 119/72 (88) 95 Nasal Cannula 4.50 10/06/17 18:18 79 18 114/71 (85) 95 Nasal Cannula 4.50 10/06/17 16:22 69 16 120/79 (93) 95 Nasal Cannula 4.50 10/06/17 14:39 83 16 138/85 (102) 92 Nasal Cannula 4.50 10/06/17 14:06 94 Nasal Cannula 6.00 10/06/17 13:46 90 Nasal Cannula 5.00 10/06/17 13:25 24 92 Nasal Cannula 2.00 10/06/17 12:54 24 93 Nasal Cannula 4.50 10/06/17 12:54 93 Nasal Cannula 4.50 10/06/17 12:48 97.5 121 16 132/75 (94) 89 I/O 10/06/17 10/06/17 10/06/17 10/07/17 10/07/17 10/07/17 07:00 15:00 23:00 07:00 15:00 23:00 Intake Total 200 ml Output Total 450 ml 950 ml Balance -450 ml -750 ml Intake Oral 200 ml Output Urine Total 450 ml 950 ml # Bowel Movements 0 Result Diagram: 10/07/17 0653 10/06/17 1342 Imaging Last Impressions Chest X-Ray 10/06/17 1332 Signed Impressions: Service Date/Time: Friday, October 06, 2017 13:42 - CONCLUSION: Overall stable appearance of the chest left ventricular cardiomegaly with normal vascularity a pacemaker in place. Bibasilar densities are unchanged on the right possibly representing in the majority of the effusion. Rian Meade MD Objective Remarks GENERAL: This is a well-nourished, well-developed patient, in no apparent distress. CARDIOVASCULAR: Regular rate and regular rhythm without murmurs, gallops, or rubs. RESPIRATORY: basal crackles. GASTROINTESTINAL: Abdomen soft, non-tender, nondistended. Normal, active bowel sounds MUSCULOSKELETAL: Extremities without clubbing, cyanosis, or edema. NEURO: Alert & Oriented x4 to person, place, time, situation. Moves all ext x4 Medications and IVs Inpatient Medications Acetaminophen (Tylenol) 650 mg Q6H PRN PO PAIN SCALE 1 TO 2; Start 10/06/17 at 15:45 Acetaminophen/ Hydrocodone Bitart (Eros 5-325 Mg) 1 tab Q4H PRN PO PAIN SCALE 3 TO 10; Start 10/06/17 at 15:45 Albuterol/ Ipratropium (Duoneb Neb) 1 ampule Q15M INH Last administered on 10/06at 13:40; Start 10/06/17 at 13:45; Stop 10/06/17 at 14:16; Status DC Amiodarone HCl (Cordarone) 200 mg DAILY PO ; Start 10/07/17 at 09:00 Atorvastatin Calcium (Lipitor) 60 mg HS PO Last administered on 10/06/17at 21:08 ; Start 10/06/17 at 21:00 Carvedilol (Coreg) 3.125 mg BID PO Last administered on 10/06/17at 21:08; Start 10/06/17 at 21:00 Digoxin (Lanoxin) 0.125 mg DAILY PO ; Start 10/07/17 at 09:00 Finasteride (Proscar) 5 mg DAILY PO ; Start 10/07/17 at 09:00 Furosemide (Lasix Inj) 40 mg BID@,18 IV PUSH Last administered on 10/06/17at 18:00; Start 10/06/17 at 18:00 Lorazepam (Ativan) 0.5 mg Q12HR PRN PO ANXIETY; Start 10/06/17 at 15:45 Methylprednisolone Sodium Succinate (SoluMEDROL INJ) 125 mg ONCE ONCE IV PUSH Last administered on 10/06/17at 13:59; Start 10/06/17 at 13:45; Stop 10/06/17 at 13:46; Status DC Miscellaneous (Pill Splitter) 1 ea UNSCH PRN OTHER SEE LABEL COMMENTS; Start at 16:00 Naloxone HCl (Narcan Inj) 0.4 mg UNSCH PRN IV PUSH SEE LABEL COMMENTS; Start at 15:45 Pantoprazole Sodium (Protonix) 40 mg DAILY PO ; Start 10/07/17 at 09:00 Pharmacy Profile Note 0 ml @ 0 mls/hr UNSCH OTHER ; Start 10/06/17 at 16:30 Senna/Docusate Sodium (Kayleigh-Colace) 1 tab BID PO Last administered on at 21:08; Start 10/06/17 at 21:00 Sodium Chloride (NS Flush) 2 ml BID IV FLUSH Last administered on 10/06/17at 21: 09; Start 10/06/17 at 21:00 Tamsulosin HCl (Flomax) 0.4 mg HS PO Last administered on 10/06/17at 21:08; Start 10/06/17 at 21:00 A/P Assessment and Plan A/P Acute respiratory failure/ exacerbation of chronic systolic CHF Chest x-ray suggesting volume overload, however, stable. BNP elevated at 1665. Echocardiogram 09/26/16 with severely reduced systolic function, EF 20-25 %. EKG is paced. - Continue cardiac regimen. Hold ramipril and Aldactone in the setting of renal insufficiency. - Patient responded to IV Bumex on last hospitalization, however, was told we are out of it at this time. continue Lasix 40 mg IV twice a day and monitor. - Continue with strict ins and outs. - Telemetry. COPD With chronic respiratory failure. On home O2, 4 L. - as needed nebs. - Continue oxygen. Atrial fibrillation Chronic, stable. - Continue carvedilol, digoxin, amiodarone. - Continue warfarin with pharmacy assistance. Acute on chronic renal failure Likely secondary to diuresis. - We'll need to continue diuresis in the setting of volume overload. - Nephrology consult if creatinine does not remain stable. - Avoid nephrotoxins. - Hold Aldactone and ramipril at this time. Deconditioning The patient appears rather weak. - Physical therapy and case management consult. DVT prophylaxis: Coumadin Discharge Planning dc home within the next 24-48 hrs if continues to improve- pending PT evaluation. Herbert Rubio MD Oct 07, 2017 08:24
[2017-10-07] MEDS ORDERED: RESP: ALBUTEROL 2.5 MG/IPRATROPIUM 0.5 MG NEB (PRN) NEB (08:30)
[2017-10-07] MEDS: AMIODARONE 200 MG TAB PO SCH (08:40)
[2017-10-07] MEDS: CARVEDILOL 3.125 MG TAB PO SCH ×2 (08:40→21:07)
[2017-10-07] MEDS: DIGOXIN 0.125 MG TAB PO SCH (08:40)
[2017-10-07] MEDS: FINASTERIDE 5 MG TAB PO SCH (08:40)
[2017-10-07] MEDS: PANTOPRAZOLE SOD 40 MG DELAYED RELEASE TAB PO SCH (08:40)
[2017-10-07] MEDS: DOCUSATE SODIUM 50 MG/SENNA 8.6 MG TAB PO SCH ×2 (08:41→21:06)
[2017-10-07] MEDS: FUROSEMIDE 40 MG/4 ML VIAL IV PUSH SCH ×2 (08:41→16:56)
[2017-10-07] MEDS: SODIUM CHLORIDE 0.9% FLUSH 10 ML FLUSH IV FLUSH SCH ×2 (08:41→21:07)
[2017-10-07 08:50] LABS: ALBUMIN 2.7 GM/DL (3.4-5.0); AST (GOT) 16 U/L (15-37); BICARBONATE 25.6 MEQ/L (21.0-32.0); BLOOD UREA NITROGEN 28 MG/DL (7-18); CALCIUM 8.7 MG/DL (8.5-10.1); CHLORIDE 105 MEQ/L (98-107); CREATININE 1.47 MG/DL (0.60-1.30); GLOMERULAR FILTRATION RATE 46 ML/MIN (>89); GLUCOSE,RANDOM 139 MG/DL (74-106); SODIUM (NA) 140 MEQ/L (136-145)
[2017-10-07 08:51] LABS: ALT (GPT) 23 U/L (12-78)
[2017-10-07 08:54] LABS: ALKALINE PHOSPHATASE 87 U/L (45-117); TOTAL BILIRUBIN ADULT 1.2 MG/DL (0.2-1.0); TOTAL PROTEIN 6.1 GM/DL (6.4-8.2)
--- NOTE | 2017-10-07 14:59 | EKG ---
Date Performed: 10/06/2017 Time Performed: 13:36:06 PTAGE: 82 years EKG: ELECTRONIC VENTRICULAR PACEMAKER ABNORMAL RHYTHM ECG Since PREVIOUS TRACING , no significant change noted PREVIOUS TRACIN10/06/2017 13.34 DOCTOR: Phill Velasco Interpretating Date/Time 10/07/2017 14:57:43
[2017-10-07] MEDS ORDERED: WARFARIN SOD 2 MG TAB PO ONE (16:00)
[2017-10-07] MEDS: TAMSULOSIN HCL 0.4 MG CAP PO SCH (21:05)
[2017-10-07] MEDS: ATORVASTATIN 40 MG TAB PO SCH (21:06)
[2017-10-08] VITALS (10 sets, daily range): BP systolic 93–112; BP diastolic 60–78; PULSE 69–73; RESP 16–21; TEMP 97.4–98; O2SAT 92–97
[2017-10-08 06:49] LABS: PROTHROMBIN TIME - PATIENT 20.3 SEC (9.8-11.6)
--- NOTE | 2017-10-08 08:50 | HHI.PR ---
Subjective Remarks in no acute distress. still with some sob and orthopnea. good urine output. d/w the RN and no acute issues over night. Objective Vitals Vital Signs Date Time Temp Pulse Resp B/P (MAP) Pulse Ox O2 Delivery O2 Flow Rate FiO2 10/08/17 04:00 97.5 71 16 93/63 (73) 96 10/08/17 03:58 69 10/08/17 00:03 69 10/08/17 00:00 98.0 70 18 103/60 (74) 92 10/07/17 21:19 93 Venturi Mask 6.00 35 10/07/17 20:00 97.4 68 18 100/64 (76) 92 10/07/17 19:59 69 10/07/17 19:45 Venturi Mask 6.00 35 10/07/17 16:09 98.3 70 19 98/54 (69) 99 10/07/17 16:00 69 10/07/17 12:26 98.2 72 20 99/66 (77) 91 10/07/17 12:00 69 10/07/17 10:29 Venturi Mask 35 I/O 10/07/17 10/07/17 10/07/17 10/08/17 10/08/17 10/08/17 07:00 15:00 23:00 07:00 15:00 23:00 Intake Total 200 ml 600 ml Output Total 950 ml 1275 ml 1450 ml Balance -750 ml -675 ml -1450 ml Intake Oral 200 ml 600 ml Output Urine Total 950 ml 1275 ml 1450 ml # Bowel Movements 0 0 Result Diagram: 10/07/17 0653 10/07/17 0653 Imaging Last Impressions Chest X-Ray 10/06/17 1332 Signed Impressions: Service Date/Time: Friday, October 06, 2017 13:42 - CONCLUSION: Overall stable appearance of the chest left ventricular cardiomegaly with normal vascularity a pacemaker in place. Bibasilar densities are unchanged on the right possibly representing in the majority of the effusion. Rian Meade MD Objective Remarks GENERAL: This is a well-nourished, well-developed patient, in no apparent distress. CARDIOVASCULAR: Regular rate and regular rhythm without murmurs, gallops, or rubs. RESPIRATORY: basal crackles. GASTROINTESTINAL: Abdomen soft, non-tender, nondistended. Normal, active bowel sounds MUSCULOSKELETAL: Extremities without clubbing, cyanosis, or edema. NEURO: Alert & Oriented x4 to person, place, time, situation. Moves all ext x4 Medications and IVs Inpatient Medications Acetaminophen (Tylenol) 650 mg Q6H PRN PO PAIN SCALE 1 TO 2; Start 10/06/17 at 15:45 Acetaminophen/ Hydrocodone Bitart (Malinta 5-325 Mg) 1 tab Q4H PRN PO PAIN SCALE 3 TO 10; Start 10/06/17 at 15:45 Albuterol/ Ipratropium (Duoneb Neb) 1 ampule Q4HR NEB PRN NEB SHORTNESS OF BREATH; Start 10/07/17 at 08:30 Amiodarone HCl (Cordarone) 200 mg DAILY PO Last administered on 10/07/17at 08:40 ; Start 10/07/17 at 09:00 Atorvastatin Calcium (Lipitor) 60 mg HS PO Last administered on 10/07/17at 21:06 ; Start 10/06/17 at 21:00 Carvedilol (Coreg) 3.125 mg BID PO Last administered on 10/07/17at 21:07; Start 10/06/17 at 21:00 Digoxin (Lanoxin) 0.125 mg DAILY PO Last administered on 10/07/17at 08:40; Start 10/07/17 at 09:00 Finasteride (Proscar) 5 mg DAILY PO Last administered on 10/07/17at 08:40; Start 10/07/17 at 09:00 Furosemide (Lasix Inj) 40 mg BID@,18 IV PUSH Last administered on 10/07/17at 16:56; Start 10/06/17 at 18:00 Lorazepam (Ativan) 0.5 mg Q12HR PRN PO ANXIETY; Start 10/06/17 at 15:45 Methylprednisolone Sodium Succinate (SoluMEDROL INJ) 125 mg ONCE ONCE IV PUSH Last administered on 10/06/17at 13:59; Start 10/06/17 at 13:45; Stop 10/06/17 at 13:46; Status DC Miscellaneous (Pill Splitter) 1 ea UNSCH PRN OTHER SEE LABEL COMMENTS; Start at 16:00 Naloxone HCl (Narcan Inj) 0.4 mg UNSCH PRN IV PUSH SEE LABEL COMMENTS; Start at 15:45 Pantoprazole Sodium (Protonix) 40 mg DAILY PO Last administered on 10/07/17at 08 :40; Start 10/07/17 at 09:00 Pharmacy Profile Note 0 ml @ 0 mls/hr UNSCH OTHER ; Start 10/06/17 at 16:30 Senna/Docusate Sodium (Kayleigh-Colace) 1 tab BID PO Last administered on at 21:06; Start 10/06/17 at 21:00 Sodium Chloride (NS Flush) 2 ml BID IV FLUSH Last administered on 10/07/17at 21: 07; Start 10/06/17 at 21:00 Tamsulosin HCl (Flomax) 0.4 mg HS PO Last administered on 10/07/17at 21:05; Start 10/06/17 at 21:00 Warfarin Sodium (Coumadin) 2 mg ONCE ONCE PO Last administered on 10/07/17at 16 :56; Start 10/07/17 at 16:00; Stop 10/07/17 at 16:01; Status DC A/P Assessment and Plan A/P Acute respiratory failure/ exacerbation of chronic systolic CHF Chest x-ray suggesting volume overload, however, stable. BNP elevated at 1665. Echocardiogram 09/26/16 with severely reduced systolic function, EF 20-25 %. EKG is paced. - Continue cardiac regimen. Hold ramipril and Aldactone in the setting of renal insufficiency. - Patient responded to IV Bumex on last hospitalization, however, was told we are out of it at this time. continue Lasix 40 mg IV twice a day and monitor. - Continue with strict ins and outs. - Telemetry. COPD With chronic respiratory failure. On home O2, 4 L. - as needed nebs. - Continue oxygen. Atrial fibrillation Chronic, stable. - Continue carvedilol, digoxin, amiodarone. - Continue warfarin with pharmacy assistance. Acute on chronic renal failure Likely secondary to diuresis. - We'll need to continue diuresis in the setting of volume overload. - Avoid nephrotoxins. - Hold Aldactone and ramipril at this time. Deconditioning The patient appears rather weak. - Physical therapy and case management consult. DVT prophylaxis: Coumadin Discharge Planning dc home tomorrow if stable. rehab was offered but he wants to go home; will have [facility]. Herbert Rubio MD Oct 08, 2017 08:50
--- NOTE | 2017-10-08 08:52 | HHI.FF ---
Face to Face Verification Diagnosis: (1) Acute exacerbation of CHF (congestive heart failure) Physical Therapy Order: Evaluate and Treat Home Health Nursing Order: Medical education Signs/symptoms of disease process CHF education Oxygen administration education Medication education-adverse effect Nursing assessment with vital signs I have seen patient Igor Dias on 10/08/17. My clinical findings support the need for the requested home health care services because: Ltd mobility - disease progression I certify that my clinical findings support that this patient is homebound because: Unsteady gait/balance Herbert Rubio MD Oct 08, 2017 08:52
[2017-10-08] MEDS: SODIUM CHLORIDE 0.9% FLUSH 10 ML FLUSH IV FLUSH SCH ×2 (08:53→21:27)
[2017-10-08] MEDS: FINASTERIDE 5 MG TAB PO SCH (08:54)
[2017-10-08] MEDS: DOCUSATE SODIUM 50 MG/SENNA 8.6 MG TAB PO SCH ×2 (08:54→21:00)
[2017-10-08] MEDS: CARVEDILOL 3.125 MG TAB PO SCH ×2 (08:54→21:27)
[2017-10-08] MEDS: FUROSEMIDE 40 MG/4 ML VIAL IV PUSH SCH ×2 (08:54→17:30)
[2017-10-08] MEDS: PANTOPRAZOLE SOD 40 MG DELAYED RELEASE TAB PO SCH (08:54)
[2017-10-08] MEDS: AMIODARONE 200 MG TAB PO SCH (08:54)
[2017-10-08] MEDS: DIGOXIN 0.125 MG TAB PO SCH (08:54)
[2017-10-08] MEDS: WARFARIN SOD 3 MG TAB PO SCH (16:03)
[2017-10-08 18:11] LABS: BICARBONATE 32.8 MEQ/L (21.0-32.0); CALCIUM 8.6 MG/DL (8.5-10.1); CREATININE 1.89 MG/DL (0.60-1.30)
[2017-10-08] MEDS: TAMSULOSIN HCL 0.4 MG CAP PO SCH (21:26)
[2017-10-08] MEDS: ATORVASTATIN 40 MG TAB PO SCH (21:27)
[2017-10-09] VITALS: BP 98/61; PULSE 71; RESP 22; TEMP 98.3; O2SAT 98
[2017-10-09 00:24] VITALS: PULSE 70
[2017-10-09 03:58] VITALS: PULSE 69
[2017-10-09 04:00] VITALS: BP 111/66; PULSE 67; RESP 20; TEMP 97.8; O2SAT 100
--- NOTE | 2017-10-09 07:54 | HHI.PR ---
Subjective Remarks in no acute distress. looks and feels better today. on oxygen via N/C @ four liters of oxygen. no new complaints. Objective Vitals Vital Signs Date Time Temp Pulse Resp B/P (MAP) Pulse Ox O2 Delivery O2 Flow Rate FiO2 10/09/17 04:00 97.8 67 20 111/66 (81) 100 10/09/17 03:58 69 10/09/17 00:24 70 10/09/17 00:00 98.3 71 22 98/61 (73) 98 10/08/17 20:45 Nasal Cannula 4.00 10/08/17 20:08 69 10/08/17 20:00 97.9 69 21 111/66 (81) 94 10/08/17 16:36 97 Nasal Cannula 4.00 10/08/17 16:00 Venturi Mask 5.00 10/08/17 16:00 Nasal Cannula 4.00 10/08/17 16:00 98.0 70 18 106/68 (81) 93 10/08/17 16:00 71 10/08/17 12:00 Venturi Mask 5.00 10/08/17 12:00 97.4 72 18 112/78 (89) 94 10/08/17 12:00 69 10/08/17 08:00 73 10/08/17 08:00 Venturi Mask 5.00 10/08/17 08:00 97.5 71 18 101/69 (80) 97 I/O 10/08/17 10/08/17 10/08/17 10/09/17 10/09/17 10/09/17 07:00 15:00 23:00 07:00 15:00 23:00 Intake Total 1600 ml 240 ml Output Total 1450 ml 1900 ml 3100 ml Balance -1450 ml -300 ml -2860 ml Intake Oral 1600 ml 240 ml Output Urine Total 1450 ml 1900 ml 3100 ml # Bowel Movements 1 0 Result Diagram: 10/07/17 0653 10/08/17 1650 Imaging Last Impressions Chest X-Ray 10/06/17 1332 Signed Impressions: Service Date/Time: Friday, October 06, 2017 13:42 - CONCLUSION: Overall stable appearance of the chest left ventricular cardiomegaly with normal vascularity a pacemaker in place. Bibasilar densities are unchanged on the right possibly representing in the majority of the effusion. Rian Meade MD Objective Remarks GENERAL: This is a well-nourished, well-developed patient, in no apparent distress. CARDIOVASCULAR: Regular rate and regular rhythm without murmurs, gallops, or rubs. RESPIRATORY: basal crackles. GASTROINTESTINAL: Abdomen soft, non-tender, nondistended. Normal, active bowel sounds MUSCULOSKELETAL: Extremities without clubbing, cyanosis, or edema. NEURO: Alert & Oriented x4 to person, place, time, situation. Moves all ext x4 Procedures none Medications and IVs Inpatient Medications Acetaminophen (Tylenol) 650 mg Q6H PRN PO PAIN SCALE 1 TO 2; Start 10/06/17 at 15:45 Acetaminophen/ Hydrocodone Bitart (Ellinger 5-325 Mg) 1 tab Q4H PRN PO PAIN SCALE 3 TO 10; Start 10/06/17 at 15:45 Albuterol/ Ipratropium (Duoneb Neb) 1 ampule Q4HR NEB PRN NEB SHORTNESS OF BREATH; Start 10/07/17 at 08:30 Amiodarone HCl (Cordarone) 200 mg DAILY PO Last administered on 10/08/17at 08:54 ; Start 10/07/17 at 09:00 Atorvastatin Calcium (Lipitor) 60 mg HS PO Last administered on 10/08/17at 21:27 ; Start 10/06/17 at 21:00 Carvedilol (Coreg) 3.125 mg BID PO Last administered on 10/08/17at 21:27; Start 10/06/17 at 21:00 Digoxin (Lanoxin) 0.125 mg DAILY PO Last administered on 10/08/17at 08:54; Start 10/07/17 at 09:00 Finasteride (Proscar) 5 mg DAILY PO Last administered on 10/08/17at 08:54; Start 10/07/17 at 09:00 Furosemide (Lasix Inj) 40 mg BID@,18 IV PUSH Last administered on 10/08/17at 17:30; Start 10/06/17 at 18:00 Lorazepam (Ativan) 0.5 mg Q12HR PRN PO ANXIETY; Start 10/06/17 at 15:45 Methylprednisolone Sodium Succinate (SoluMEDROL INJ) 125 mg ONCE ONCE IV PUSH Last administered on 10/06/17at 13:59; Start 10/06/17 at 13:45; Stop 10/06/17 at 13:46; Status DC Miscellaneous (Pill Splitter) 1 ea UNSCH PRN OTHER SEE LABEL COMMENTS; Start at 16:00 Naloxone HCl (Narcan Inj) 0.4 mg UNSCH PRN IV PUSH SEE LABEL COMMENTS; Start at 15:45 Pantoprazole Sodium (Protonix) 40 mg DAILY PO Last administered on 10/08/17at 08 :54; Start 10/07/17 at 09:00 Patient Medication Teaching (Coumadin Booklet) 1 ONCE ONCE OTHER Last administered on 10/08/17at 10:21; Start 10/08/17 at 09:15; Stop 10/08/17 at 09:16 ; Status DC Pharmacy Profile Note 0 ml @ 0 mls/hr UNSCH OTHER ; Start 10/06/17 at 16:30 Senna/Docusate Sodium (Kayleigh-Colace) 1 tab BID PO Last administered on at 08:54; Start 10/06/17 at 21:00 Sodium Chloride (NS Flush) 2 ml BID IV FLUSH Last administered on 10/08/17at 21: 27; Start 10/06/17 at 21:00 Tamsulosin HCl (Flomax) 0.4 mg HS PO Last administered on 10/08/17at 21:26; Start 10/06/17 at 21:00 Warfarin Sodium (Coumadin) 3 mg DAILY@1600 PO Last administered on 10/08/17at 16 :03; Start 10/08/17 at 16:00 A/P Assessment and Plan A/P Acute respiratory failure/ exacerbation of chronic systolic CHF- improved. Chest x-ray suggesting volume overload, however, stable. BNP elevated at 1665. Echocardiogram 09/26/16 with severely reduced systolic function, EF 20-25 %. EKG is paced. - Continue cardiac regimen. Hold ramipril and Aldactone in the setting of renal insufficiency. - Patient responded to IV Bumex on last hospitalization, however, was told we are out of it at this time. hold lasix for now. - Continue with strict ins and outs. - Telemetry. COPD With chronic respiratory failure. On home O2, 4 L. - as needed nebs. - Continue oxygen. Atrial fibrillation Chronic, stable. - Continue carvedilol, digoxin, amiodarone. - Continue warfarin . -PT/INR monitoring as outpatient. Acute on chronic renal failure,Likely secondary to diuresis- - hold lasix today. -repeat BMP today. - Avoid nephrotoxins. - Hold Aldactone and ramipril at this time. Deconditioning The patient appears rather weak. - Physical therapy and case management consult. DVT prophylaxis: Coumadin Discharge Planning dc home today if renal function is stable- pending BMP. rehab was offered but he wants to go home; will have [facility] f/u; pcp. see med list. d/w the patient. Herbert Rubio MD Oct 09, 2017 07:54
--- NOTE | 2017-10-09 07:56 | HHI.DS ---
Discharge Summary Admission Date Oct 06, 2017 at 15:26 Discharge Date: Oct 09, 2017 Admitting Diagnosis congestive heart failure (1) Acute exacerbation of CHF (congestive heart failure) ICD Code: I50.9 - Heart failure, unspecified Diagnosis: Principal Status: Acute Procedures none Brief History - From Admission The patient is an 82-year-old male with a past medical history of CHF and COPD on home oxygen who is presenting to the hospital with increased shortness of breath, chest tightness and weakness. The patient says that he has shortness of breath at baseline but recently it has been getting worse. It is associated with tightness in his chest. He says he has been coughing up mucus, but is unsure of the color as he has been swallowing it. He reports feeling like he has a dry mouth. He has been drinking a lot more water because of that. He has been experiencing a runny nose. He says he lives with his sister and uses a cane to ambulate but has been much weaker over the past few days. He says he has heart doctor and last saw him a few months ago. He said he had a stress test which seemed to be negative. He was told his ejection fraction went down to 15%. CBC/BMP: 10/07/17 0653 10/08/17 1650 Significant Findings Laboratory Tests Test 10/06/17 13:42 10/06/17 19:30 10/07/17 01:47 10/07/17 06:53 Red Cell Distribution Width 18.1 % (11.6-17.2) 17.6 % (11.6-17.2) Neutrophils (%) (Auto) 84.6 % (16.0-70.0) 92.9 % (16.0-70.0) Lymphocytes (%) (Auto) 4.4 % (9.0-44.0) 3.6 % (9.0-44.0) Monocytes (%) (Auto) 10.5 % (0.0-8.0) Lymphocytes # (Auto) 0.4 TH/MM3 (1.0-4.8) 0.2 TH/MM3 (1.0-4.8) Monocytes # (Auto) 1.0 TH/MM3 (0-0.9) Prothrombin Time 31.0 SEC (9.8-11.6) 21.4 SEC (9.8-11.6) Activated Partial Thromboplast Time 37.5 SEC (24.3-30.1) Blood Urea Nitrogen 24 MG/DL (7-18) 28 MG/DL (7-18) Creatinine 1.70 MG/DL (0.60-1.30) 1.47 MG/DL (0.60-1.30) Random Glucose 116 MG/DL (74-106) 139 MG/DL (74-106) Albumin 3.2 GM/DL (3.4-5.0) 2.7 GM/DL (3.4-5.0) Total Bilirubin 1.3 MG/DL (0.2-1.0) 1.2 MG/DL (0.2-1.0) Estimat Glomerular Filtration Rate 39 ML/MIN (>89) 46 ML/MIN (>89) B-Type Natriuretic Peptide 1665 PG/ML (0-100) Platelet Count 112 TH/MM3 (150-450) Total Protein 6.1 GM/DL (6.4-8.2) Test 10/08/17 05:30 10/08/17 16:50 Prothrombin Time 20.3 SEC (9.8-11.6) Blood Urea Nitrogen 43 MG/DL (7-18) Creatinine 1.89 MG/DL (0.60-1.30) Carbon Dioxide Level 32.8 MEQ/L (21.0-32.0) Estimat Glomerular Filtration Rate 34 ML/MIN (>89) Imaging Last Impressions Chest X-Ray 10/06/17 1332 Signed Impressions: Service Date/Time: Friday, October 06, 2017 13:42 - CONCLUSION: Overall stable appearance of the chest left ventricular cardiomegaly with normal vascularity a pacemaker in place. Bibasilar densities are unchanged on the right possibly representing in the majority of the effusion. Rian Meade MD PE at Discharge GENERAL: This is a well-nourished, well-developed patient, in no apparent distress. CARDIOVASCULAR: Regular rate and regular rhythm without murmurs, gallops, or rubs. RESPIRATORY: basal crackles. GASTROINTESTINAL: Abdomen soft, non-tender, nondistended. Normal, active bowel sounds MUSCULOSKELETAL: Extremities without clubbing, cyanosis, or edema. NEURO: Alert & Oriented x4 to person, place, time, situation. Moves all ext x4 Hospital Course patient was admitted with decompensated CHF. he was started on IV diuretics. his overall condition improved. of note he's on home oxygen. his aldactone was held due to renal insufficiency. he will have [facility] and outpatient follow-up with his PCP. Pt Condition on Discharge: Fair Discharge Disposition: Disch w/ Home Health Serv Discharge Time: <= 30 minutes Discharge Instructions DIET: Follow Instructions for: Heart Healthy Diet, Low Sodium Diet Activities you can perform: Regular-No Restrictions Follow up Referrals: PCP Follow-up Continued Medications: Acetaminophen-Codeine (Acetaminophen-Codeine) 300-30 mg Tab 2 TAB PO Q6HR PRN for pain, #30 TAB 0 Refills Amiodarone (Amiodarone) 200 Mg Tab 200 MG PO DAILY for arrhythmia, #30 TAB 3 Refills Atorvastatin (Atorvastatin) 40 Mg Tab 60 MG PO HS for Cholesterol Management, #30 TAB 0 Refills Bumetanide (Bumetanide) 1 Mg Tab 1 MG PO DAILY, #30 TAB Carvedilol (Carvedilol) 3.125 Mg Tab 3.125 MG PO BID, #60 TAB 0 Refills Digoxin (Digoxin) 0.125 Mg Tab 0.125 MG PO DAILY for Regulate Heart Beat, #30 TAB 0 Refills Finasteride (Proscar) 5 Mg Tab 5 MG PO DAILY for Manage Prostate Problems, #30 TAB 0 Refills Do not crush. Ipratropium-Albuterol Neb (Duoneb) 0.5-2.5 Mg/3 Ml Neb 1 AMPULE NEB Q4HR PRN for SHORTNESS OF BREATH, #0 ML Lorazepam (Lorazepam) 0.5 Mg Tab 0.5 MG PO Q12HR PRN for ANXIETY, #10 TAB 0 Refills Pantoprazole (Pantoprazole) 40 Mg Tab 40 MG PO DAILY for Reflux, #30 TAB 0 Refills Potassium Chloride ER (K-Tab) 10 Meq Tab 10 MEQ PO HS for Electrolyte Replacement, #60 TAB 0 Refills Ramipril (Ramipril) 5 Mg Cap 5 MG PO DAILY, #60 CAP 0 Refills Tamsulosin (Tamsulosin) 0.4 Mg Cap 0.4 MG PO HS for Manage Prostate Problems, #30 CAP 0 Refills Tiotropium Inh (Spiriva Handihaler) 18 Mcg Cap 18 MCG INH DAILY for COPD, #30 CAP 0 Refills 1 capsule = 18 mcg Warfarin (Warfarin) 3 Mg Tab 3 MG PO MON,MON for Blood Clot Prevention, #30 TAB 0 Refills Warfarin (Warfarin) 4 Mg Tab 4 MG PO mon,mon, ,mon for Blood Clot Prevention, #30 TAB 0 Refills Discontinued Medications: Spironolactone (Spironolactone) 25 Mg Tab 25 MG PO DAILY, #30 TAB 0 Refills Herbert Rubio MD Oct 09, 2017 07:56
[2017-10-09 08:00] VITALS: BP 108/57; PULSE 70; PULSE 75; RESP 20; TEMP 97.5; O2SAT 92
[2017-10-09 09:19] LABS: CALCIUM 8.9 MG/DL (8.5-10.1); CREATININE 1.69 MG/DL (0.60-1.30)
[2017-10-09 09:20] LABS: BICARBONATE 32.7 MEQ/L (21.0-32.0)
[2017-10-09] MEDS: CARVEDILOL 3.125 MG TAB PO SCH (09:36)
[2017-10-09] MEDS: DIGOXIN 0.125 MG TAB PO SCH (09:36)
[2017-10-09] MEDS: AMIODARONE 200 MG TAB PO SCH (09:36)
[2017-10-09] MEDS: PANTOPRAZOLE SOD 40 MG DELAYED RELEASE TAB PO SCH (09:36)
[2017-10-09] MEDS: FINASTERIDE 5 MG TAB PO SCH (09:36)
[2017-10-09] MEDS: SODIUM CHLORIDE 0.9% FLUSH 10 ML FLUSH IV FLUSH SCH (09:37)
[2017-10-09] MEDS: DOCUSATE SODIUM 50 MG/SENNA 8.6 MG TAB PO SCH (09:37)
[2017-10-09 12:00] VITALS: BP 97/66; PULSE 70; RESP 20; TEMP 97.5; O2SAT 95
[2017-10-09] MEDS: WARFARIN SOD 3 MG TAB PO SCH (17:01)
== END 2017-10-09 17:00 | disposition home health service (06) | DRG 291 ==
LOC: NEPC 12:47 → NEDA 15:26 → N04B 19:36
PROVIDERS: ADMIT Internal Medicine; ATTEND Internal Medicine
DX: I13.0 Hypertensive heart and chronic kidney disease with heart failure and stage 1 through stage 4 chronic kidney disease, or unspecified chronic kidney disease (principal); I50.23 Acute on chronic systolic (congestive) heart failure; J96.20 Acute and chronic respiratory failure, unspecified whether with hypoxia or hypercapnia; N17.9 Acute kidney failure, unspecified; N18.3 Chronic kidney disease, stage 3 (moderate); J44.9 Chronic obstructive pulmonary disease, unspecified; I48.2 Chronic atrial fibrillation; Z79.01 Long term (current) use of anticoagulants; Z86.718 Personal history of other venous thrombosis and embolism; R53.1 Weakness; H91.8X1 Other specified hearing loss, right ear; I25.2 Old myocardial infarction; E78.5 Hyperlipidemia, unspecified; Z95.810 Presence of automatic (implantable) cardiac defibrillator; Z95.5 Presence of coronary angioplasty implant and graft; Z87.891 Personal history of nicotine dependence
CPT/HCPCS: 71045; 80048; 80053; 80162; 83880; 84484; 85025; 85610; 85730; 87804; 93005; 94640; 94664; 96374; 96375; J1940; J2930

== ENCOUNTER 2017-11-21 09:57 | Inpatient (IN) | payer OTHER, MEDICARE ==
[~2017-11-21] VITALS: Ht 182.9 cm; Wt 89.6 kg
[~2017-11-21 09:57] MED LIST changes: -SPIR25TA PO
[2017-11-21 10:04] VITALS: BP 127/87; PULSE 79; RESP 20; O2SAT 88
[2017-11-21] MEDS ORDERED: ASPIRIN 325 MG TAB PO ONE (10:30)
--- NOTE | 2017-11-21 10:38 | PD ---
HPI Chief Complaint: Chest Pain Time Seen by Provider: 10:20 Travel History International Travel<30 days: No Contact w/Intl Traveler<30days: No Traveled to known affect area: No History of Present Illness HPI 82-year-old male patient with history of CHF, CAD, presents to the ER today because he has had 1 day history of chest discomfort, dyspnea on exertion this been worsening over several days. He states his chest pain is currently a 3 out of 10. He denies any fevers, coughing, or any other symptoms. Modifying Factors: None Associated Signs & Symptoms: Chest pain, dyspnea on exertion Risk Factors: CHF history PFSH Past Medical History Hx Anticoagulant Therapy: Yes (WARFARIN) AAA: Yes (REPAIRED 2004) Atrial Fibrillation: Yes Autoimmune Disease: No Blood Disorders: No Heart Rhythm Problems: Yes (AFIB) Cancer: No Cardiovascular Problems: Yes (HTN, LA, CHF) High Cholesterol: Yes Chest Pain: Yes Congestive Heart Failure: Yes COPD: Yes Cerebrovascular Accident: No Coronary Artery Disease: Yes Diminished Hearing: Yes (RIGHT EAR) Deep Vein Thrombosis: Yes Endocrine: No Gastrointestinal Disorders: Yes (GI BLEED) GERD: Yes Genitourinary: Yes (VARGAS ) Hiatal Hernia: No Hypertension: Yes Immune Disorder: No Implanted Vascular Access Dvce: Yes Musculoskeletal: No Neurologic: No Psychiatric: No Reproductive: No Respiratory: Yes (ASTHMA, COPD) Immunizations Current: Yes (HAD CHILDHOOD ILLNESS IMMUNIZATIONS) Myocardial Infarction: Yes (2010) Pneumonia: Yes Seizures: Yes Sleep Apnea: Yes Ulcer: Yes PNEUMOCCOCAL Vaccine (Year): 2 Past Surgical History Abdominal Aneurysm Repair: Yes (2004) Abdominal Surgery: No AICD: Yes Arteriovenous Shunt: No Body Medical Devices: defibrillator 2012, 2015 Cardiac Surgery: Yes (STENT LAD/ Defibrillator, CARDIAC CATH) Cholecystectomy: Yes Coronary Stent: Yes (APRIL 2011) Ear Surgery: No Endocrine Surgery: No Eye Surgery: No Genitourinary Surgery: No Gynecologic Surgery: No Insulin Pump: No Joint Replacement: No Oral Surgery: No Pacemaker: Yes (DEFIBRILLATOR) Thoracic Surgery: No Tonsillectomy: Yes Other Surgery: Yes (NICHO FILTER) Social History Alcohol Use: No Tobacco Use: No (QUIT LAST JULY ) Substance Use: No Allergies-Medications (Allergen,Severity, Reaction): Coded Allergies: penicillin G (Unverified Allergy, Unknown, UNKNWON REACTION, 11/21/17) PATIENT STATES THAT HE IS NOT ALLERGIC TO THIS MEDICATION. Reported Meds & Prescriptions Reported Meds & Active Scripts Active Bumetanide 1 Mg Tab 1 Mg PO DAILY Spiriva Handihaler (Tiotropium Inh) 18 Mcg Cap 18 Mcg INH DAILY 1 capsule = 18 mcg Lorazepam 0.5 Mg Tab 0.5 Mg PO Q12HR PRN Duoneb (Ipratropium-Albuterol Neb) 0.5-2.5 Mg/3 Ml Neb 1 Ampule NEB Q4HR PRN Amiodarone (Amiodarone HCl) 200 Mg Tab 200 Mg PO DAILY Acetaminophen-Codeine 300-30 mg Tab 2 Tab PO Q6HR PRN Reported K-Tab (Potassium Chloride) 10 Meq Tab 10 Meq PO HS Proscar (Finasteride) 5 Mg Tab 5 Mg PO DAILY Do not crush. Carvedilol 3.125 Mg Tab 3.125 Mg PO BID Pantoprazole (Pantoprazole Sodium) 40 Mg Tab 40 Mg PO DAILY Ramipril 5 Mg Cap 5 Mg PO DAILY Atorvastatin (Atorvastatin Calcium) 40 Mg Tab 60 Mg PO HS Tamsulosin (Tamsulosin HCl) 0.4 Mg Cap 0.4 Mg PO HS Digoxin 0.125 Mg Tab 0.125 Mg PO DAILY Review of Systems Except as stated in HPI: all other systems reviewed are Neg Physical Exam Narrative GENERAL: Well-developed elderly white male patient currently in mild distress. Awake and oriented 3. SKIN: Focused skin assessment warm/dry. HEAD: Atraumatic. Normocephalic. EYES: Pupils equal and round. No scleral icterus. No injection or drainage. ENT: No nasal bleeding or discharge. Mucous membranes pink and moist. NECK: Trachea midline. No JVD. CARDIOVASCULAR: Regular rate and rhythm. No murmur appreciated. RESPIRATORY: No accessory muscle use. Decreased at the bases. Breath sounds equal bilaterally. GASTROINTESTINAL: Abdomen soft, non-tender, nondistended. Hepatic and splenic margins not palpable. MUSCULOSKELETAL: No obvious deformities. No clubbing. No cyanosis. Bilateral pitting edema of the legs, +2. NEUROLOGICAL: Awake and alert. No obvious cranial nerve deficits. Motor grossly within normal limits. Normal speech. PSYCHIATRIC: Appropriate mood and affect; insight and judgment normal. Data Data Last Documented VS Vital Signs Date Time Temp Pulse Resp B/P (MAP) Pulse Ox O2 Delivery O2 Flow Rate FiO2 11/21/17 11:01 96 Nasal Cannula 2.00 11/21/17 10:04 79 20 127/87 (100) Orders Orders Electrocardiogram (11/21/17 10:20) Ckmb (Isoenzyme) Profile (11/21/17 10:20) Complete Blood Count With Diff (11/21/17 10:20) Comprehensive Metabolic Panel (11/21/17 10:20) Magnesium (Mg) (11/21/17 10:20) Prothrombin Time / Inr (Pt) (11/21/17 10:20) Act Partial Throm Time (Ptt) (11/21/17 10:20) Troponin I (11/21/17 10:20) Ecg Monitoring (11/21/17 10:20) Bilateral Bp Monitoring (11/21/17 10:20) Iv Access Insert/Monitor (11/21/17 10:20) Oximetry (11/21/17 10:20) Oxygen Administration (11/21/17 10:20) Sodium Chloride 0.9% Flush (Ns Flush) (11/21/17 10:30) Chest, Pa & Lat (11/21/17 10:20) B-Type Natriuretic Peptide (11/21/17 10:24) Aspirin (Aspirin) (11/21/17 10:30) Furosemide Inj (Lasix Inj) (11/21/17 11:30) Admit Order (Ed Use Only) (11/21/17 12:11) Labs Laboratory Tests Test 11/21/17 10:30 White Blood Count 7.0 TH/MM3 Red Blood Count 5.21 MIL/MM3 Hemoglobin 15.4 GM/DL Hematocrit 46.9 % Mean Corpuscular Volume 90.0 FL Mean Corpuscular Hemoglobin 29.7 PG Mean Corpuscular Hemoglobin Concent 32.9 % Red Cell Distribution Width 18.1 % Platelet Count 162 TH/MM3 Mean Platelet Volume 8.0 FL Neutrophils (%) (Auto) 84.0 % Lymphocytes (%) (Auto) 7.4 % Monocytes (%) (Auto) 6.9 % Eosinophils (%) (Auto) 1.2 % Basophils (%) (Auto) 0.5 % Neutrophils # (Auto) 5.9 TH/MM3 Lymphocytes # (Auto) 0.5 TH/MM3 Monocytes # (Auto) 0.5 TH/MM3 Eosinophils # (Auto) 0.1 TH/MM3 Basophils # (Auto) 0.0 TH/MM3 CBC Comment DIFF FINAL Differential Comment Prothrombin Time 30.9 SEC Prothromb Time International Ratio 3.1 RATIO Activated Partial Thromboplast Time 33.2 SEC Blood Urea Nitrogen 23 MG/DL Creatinine 1.64 MG/DL Random Glucose 124 MG/DL Total Protein 7.1 GM/DL Albumin 3.2 GM/DL Calcium Level 8.5 MG/DL Magnesium Level 1.9 MG/DL Alkaline Phosphatase 104 U/L Aspartate Amino Transf (AST/SGOT) 15 U/L Alanine Aminotransferase (ALT/SGPT) 20 U/L Total Bilirubin 0.9 MG/DL Sodium Level 140 MEQ/L Potassium Level 4.0 MEQ/L Chloride Level 104 MEQ/L Carbon Dioxide Level 30.1 MEQ/L Anion Gap 6 MEQ/L Estimat Glomerular Filtration Rate 41 ML/MIN Total Creatine Kinase 49 U/L Troponin I 0.03 NG/ML B-Type Natriuretic Peptide 1454 PG/ML MDM Medical Decision Making Medical Screen Exam Complete: Yes Emergency Medical Condition: Yes Medical Record Reviewed: Yes Interpretation(s) EKG shows paced rhythm at a rate of 69 bpm. Unchanged from previous EKGs. Laboratory Tests Test 11/21/17 10:30 Red Cell Distribution Width 18.1 % (11.6-17.2) Neutrophils (%) (Auto) 84.0 % (16.0-70.0) Lymphocytes (%) (Auto) 7.4 % (9.0-44.0) Lymphocytes # (Auto) 0.5 TH/MM3 (1.0-4.8) Prothrombin Time 30.9 SEC (9.8-11.6) Activated Partial Thromboplast Time 33.2 SEC (24.3-30.1) Blood Urea Nitrogen 23 MG/DL (7-18) Creatinine 1.64 MG/DL (0.60-1.30) Random Glucose 124 MG/DL (74-106) Albumin 3.2 GM/DL (3.4-5.0) Estimat Glomerular Filtration Rate 41 ML/MIN (>89) B-Type Natriuretic Peptide 1454 PG/ML (0-100) Last 24 hours Impressions Chest X-Ray 11/21/17 1020 Signed Impressions: Service Date/Time: Tuesday, November 21, 2017 10:49 - CONCLUSION: 1. Cardiomegaly with positive fluid balance. 2. Small right and trace left pleural effusions with associated lower lobe airspace disease, presumably compressive atelectasis. Edgar Forde MD Differential Diagnosis ACS versus CHF exacerbation versus pleural effusion versus pneumonia Narrative Course EKG did not show any signs of acute ST changes. His chest x-ray and lab work with elevated BNP is indicative of CHF. Cardiac enzymes are negative. Patient was given aspirin and Lasix in the ER. Nitroglycerin was held due to low blood pressures. At this point, my plan would be to admit the patient for further treatment. Case was discussed with Dr. Scott for admission. Diagnosis Primary Impression: Acute exacerbation of CHF (congestive heart failure) Admitting Information Admitting Physician Requests: Admit Aster Roman MD Nov 21, 2017 10:38
[2017-11-21 10:48] LABS: AUTOMATED NEUTROPHIL # 5.9 TH/MM3 (1.8-7.7); BASOPHIL % 0.5 % (0.0-2.0); EOSINOPHIL # 0.1 TH/MM3 (0-0.4); EOSINOPHIL % 1.2 % (0.0-4.0); HEMATOCRIT 46.9 % (39.0-51.0); HEMOGLOBIN 15.4 GM/DL (13.0-17.0); LYMPH % 7.4 % (9.0-44.0); LYMPHOCYTE # 0.5 TH/MM3 (1.0-4.8); MEAN CORPUSCULAR HEMOGLOBIN 29.7 PG (27.0-34.0); MEAN CORPUSCULAR HGB CONC 32.9 % (32.0-36.0); MONO % 6.9 % (0.0-8.0); MONOCYTE # 0.5 TH/MM3 (0-0.9); PLATELET COUNT 162 TH/MM3 (150-450); RED BLOOD COUNT 5.21 MIL/MM3 (4.50-5.90); RED CELL DISTRIBUTION WIDTH 18.1 % (11.6-17.2)
[2017-11-21 10:52] LABS: INTERNATIONAL NORMALIZED RATIO 3.1 RATIO; PROTHROMBIN TIME - PATIENT 30.9 SEC (9.8-11.6)
[2017-11-21] MEDS: SODIUM CHLORIDE 0.9% FLUSH 10 ML FLUSH IVF PRN ×2 (10:53→11:33)
[2017-11-21 10:58] VITALS: O2SAT 96
[2017-11-21 11:04] LABS: ALBUMIN 3.2 GM/DL (3.4-5.0); ALT (GPT) 20 U/L (12-78); AST (GOT) 15 U/L (15-37); BICARBONATE 30.1 MEQ/L (21.0-32.0); BLOOD UREA NITROGEN 23 MG/DL (7-18); CALCIUM 8.5 MG/DL (8.5-10.1); CHLORIDE 104 MEQ/L (98-107); CREATININE 1.64 MG/DL (0.60-1.30); GLOMERULAR FILTRATION RATE 41 ML/MIN (>89); GLUCOSE,RANDOM 124 MG/DL (74-106); MAGNESIUM 1.9 MG/DL (1.5-2.5); SODIUM (NA) 140 MEQ/L (136-145)
[2017-11-21 11:07] LABS: ALKALINE PHOSPHATASE 104 U/L (45-117); TOTAL BILIRUBIN ADULT 0.9 MG/DL (0.2-1.0); TOTAL PROTEIN 7.1 GM/DL (6.4-8.2); TROPONIN I 0.03 NG/ML (0.02-0.05)
--- NOTE | 2017-11-21 11:14 | RADRPT ---
EXAM DATE/TIME: 11/21/2017 10:49 [facility] COMPARISON: CHEST SINGLE AP, October 06, 2017, 13:42. CHEST PA & LAT, August 11, 2016, 10:24. INDICATIONS : Chest pains x1 day, prior heart attack. MEDICAL HISTORY : Myocardial infarction. SURGICAL HISTORY : Pacemaker. ENCOUNTER: Initial ACUITY: 1 day PAIN SCORE: 3/10 LOCATION: Bilateral chest FINDINGS: Stable dual-lead AICD device. Small right pleural effusion and associated right lower lobe airspace d isease. There is also likely a trace left pleural effusion with minimal left basilar airspace disease . Diffuse interstitial prominence. Cardiac silhouette is mildly enlarged. Pulmonary vascularity is in distinct. Remainder of the exam is unchanged. CONCLUSION: 1. Cardiomegaly with positive fluid balance. 2. Small right and trace left pleural effusions with associated lower lobe airspace disease, presumab ly compressive atelectasis. Edgar Forde MD on November 21, 2017 at 11:10 Board Certified Radiologist. This report was verified electronically.
[2017-11-21] MEDS ORDERED: FUROSEMIDE 40 MG/4 ML VIAL IV PUSH ONE (11:30)
--- NOTE | 2017-11-21 12:56 | HHI.HP ---
[facility] Service [facility] Primary Care Physician Louis Glasgow MD Admission Diagnosis CHF exacerbation Diagnoses: (1) Acute exacerbation of CHF (congestive heart failure) Diagnosis: Principal Chief Complaint: sob Travel History International Travel<30 Days: No Contact w/Intl Traveler <30 Da: No Traveled to Known Affected Are: No History of Present Illness patient is a 82 y/o male, known to me from the previous admission, with history of CAD, CHF, s/p AICD placement, COPD- on home oxygen, who presented to ER with chest pain. he says that he woke up this morning and started to have some chest pain. pain was localized to left lower chest with no radiation. pain was not associated with nausea,emesis or diaphoresis. he was pain free at the time of my evaluation. he says that he's on oxygen at home but it seems that his sob has been getting worse. he's not sure if he had any recent weight gain but he reports some orthopnea. Review of Systems Constitutional: DENIES: Fever, Weight loss, Chills, Night Sweats Eyes: DENIES: Blurred vision, Diplopia, Vision loss, Double Vision Ears, nose, mouth, throat: DENIES: Tinnitus, Vertigo, Throat pain, Epistaxis Respiratory: COMPLAINS OF: Shortness of breath, DENIES: Apneas, Cough, Snoring , Wheezing, Hemoptysis, Sputum production Cardiovascular: COMPLAINS OF: Chest pain, Lower Extremity Edema, Orthopnea, DENIES: Palpitations, Syncope, Dyspnea on Exertion, PND, Claudication Gastrointestinal: DENIES: Abdominal pain, Black stools, Bloody stools, Constipation, Diarrhea, Nausea, Vomiting, Difficulty Swallowing, Anorexia Genitourinary: DENIES: Urinary frequency, Urgency, Hematuria, Dysuria Musculoskeletal: DENIES: Joint pain, Muscle aches, Stiffness, Joint Swelling Integumentary: DENIES: Rash Neurologic: DENIES: Abnormal gait, Headache, Localized weakness, Paresthesias, Seizures, Speech Problems, Tremor, Poor Balance Psychiatric: DENIES: Anxiety, Confusion, Mood changes, Depression, Hallucinations, Agitation, Suicidal Ideation, Homicidal Ideation, Delusions Past Family Social History Past Medical History Chronic systolic congestive heart failure COPD on home oxygen Hypertension Hyperlipidemia BPH History of DVT/PE AAA status post repair Chronic kidney disease stage III Pulmonary hypertension Past Surgical History Past Surgical History Prostate biopsy Endovascular repair of AAA Mirta IVC filter placement Cardiac catheterization with PCI AV arjun ablation AICD placement Reported Medications Bumetanide 1 Mg Tab 1 Mg PO DAILY Spiriva Handihaler (Tiotropium Inh) 18 Mcg Cap 18 Mcg INH DAILY 1 capsule = 18 mcg Lorazepam 0.5 Mg Tab 0.5 Mg PO Q12HR PRN Duoneb (Ipratropium-Albuterol Neb) 0.5-2.5 Mg/3 Ml Neb 1 Ampule NEB Q4HR PRN Amiodarone (Amiodarone HCl) 200 Mg Tab 200 Mg PO DAILY Acetaminophen-Codeine 300-30 mg Tab 2 Tab PO Q6HR PRN Reported K-Tab (Potassium Chloride) 10 Meq Tab 10 Meq PO HS Proscar (Finasteride) 5 Mg Tab 5 Mg PO DAILY Do not crush. Carvedilol 3.125 Mg Tab 3.125 Mg PO BID Pantoprazole (Pantoprazole Sodium) 40 Mg Tab 40 Mg PO DAILY Ramipril 5 Mg Cap 5 Mg PO DAILY Atorvastatin (Atorvastatin Calcium) 40 Mg Tab 60 Mg PO HS Tamsulosin (Tamsulosin HCl) 0.4 Mg Cap 0.4 Mg PO HS Digoxin 0.125 Mg Tab 0.125 Mg PO DAILY Allergies: Coded Allergies: penicillin G (Unverified Allergy, Unknown, UNKNWON REACTION, 11/21/17) PATIENT STATES THAT HE IS NOT ALLERGIC TO THIS MEDICATION. Active Ordered Medications Inpatient Medications Aspirin (Aspirin) 325 mg ONCE ONCE PO Last administered on 11/21/17at 10:53; Start 11/21/17 at 10:30; Stop 11/21/17 at 10:31; Status DC Furosemide (Lasix Inj) 40 mg ONCE ONCE IV PUSH Last administered on 11/21/17at 11:33; Start 11/21/17 at 11:30; Stop 11/21/17 at 11:31; Status DC Sodium Chloride (NS Flush) 2 ml UNSCH PRN IVF FLUSH AFTER USING IV ACCESS Last administered on 11/21/17at 11:33; Start 11/21/17 at 10:30 Social History quit smoking last year.lives with his sister. Physical Exam Vital Signs Vital Signs Date Time Temp Pulse Resp B/P (MAP) Pulse Ox O2 Delivery O2 Flow Rate FiO2 11/21/17 11:01 96 Nasal Cannula 2.00 11/21/17 10:58 96 Nasal Cannula 2.00 11/21/17 10:58 96 Nasal Cannula 2.00 11/21/17 10:04 79 20 127/87 (100) 88 Physical Exam GENERAL: This is a well-nourished, well-developed patient, in no apparent distress. SKIN: No rashes, ecchymoses or lesions. Cool and dry. HEAD: Atraumatic. Normocephalic. No temporal or scalp tenderness. EYES: Pupils equal round and reactive. Extraocular motions intact. No scleral icterus. No injection or drainage. ENT: Nose without bleeding, purulent drainage or septal hematoma. Throat without erythema, tonsillar hypertrophy or exudate. Uvula midline. Airway patent. NECK: Trachea midline. No JVD or lymphadenopathy. Supple, nontender, no meningeal signs. CARDIOVASCULAR: Regular rate and rhythm without murmurs, gallops, or rubs. RESPIRATORY: Clear to auscultation. Breath sounds equal bilaterally. No wheezes , rales, or rhonchi. GASTROINTESTINAL: Abdomen soft, non-tender, nondistended. No hepato-splenomegaly , or palpable masses. No guarding. MUSCULOSKELETAL: Extremities with bilateral pedal edema. NEUROLOGICAL: Awake and alert. Cranial nerves II through XII intact. Motor and sensory grossly within normal limits. Five out of 5 muscle strength in all muscle groups. Normal speech. Laboratory Laboratory Tests Test 11/21/17 10:30 White Blood Count 7.0 Red Blood Count 5.21 Hemoglobin 15.4 Hematocrit 46.9 Mean Corpuscular Volume 90.0 Mean Corpuscular Hemoglobin 29.7 Mean Corpuscular Hemoglobin Concent 32.9 Red Cell Distribution Width 18.1 Platelet Count 162 Mean Platelet Volume 8.0 Neutrophils (%) (Auto) 84.0 Lymphocytes (%) (Auto) 7.4 Monocytes (%) (Auto) 6.9 Eosinophils (%) (Auto) 1.2 Basophils (%) (Auto) 0.5 Neutrophils # (Auto) 5.9 Lymphocytes # (Auto) 0.5 Monocytes # (Auto) 0.5 Eosinophils # (Auto) 0.1 Basophils # (Auto) 0.0 CBC Comment DIFF FINAL Differential Comment Prothrombin Time 30.9 Prothromb Time International Ratio 3.1 Activated Partial Thromboplast Time 33.2 Blood Urea Nitrogen 23 Creatinine 1.64 Random Glucose 124 Total Protein 7.1 Albumin 3.2 Calcium Level 8.5 Magnesium Level 1.9 Alkaline Phosphatase 104 Aspartate Amino Transf (AST/SGOT) 15 Alanine Aminotransferase (ALT/SGPT) 20 Total Bilirubin 0.9 Sodium Level 140 Potassium Level 4.0 Chloride Level 104 Carbon Dioxide Level 30.1 Anion Gap 6 Estimat Glomerular Filtration Rate 41 Total Creatine Kinase 49 Troponin I 0.03 B-Type Natriuretic Peptide 1454 Result Diagram: 11/21/17 1030 11/21/17 1030 Imaging Last Impressions Chest X-Ray 11/21/17 1020 Signed Impressions: Service Date/Time: Tuesday, November 21, 2017 10:49 - CONCLUSION: 1. Cardiomegaly with positive fluid balance. 2. Small right and trace left pleural effusions with associated lower lobe airspace disease, presumably compressive atelectasis. MD Slime Devlin VTE Risk Assessment Caprini VTE Risk Assessment: Mod/High Risk (score >= 2) Caprini Risk Assessment Model Point Value = 1 Point Value = 2 Point Value = 3 Point Value = 5 Age 41-60 Minor surgery BMI > 25 kg/m2 Swollen legs Varicose veins or History of unexplained or recurrent spontaneous Oral contraceptives or hormone replacement Sepsis (< 1 month) Serious lung disease, including pneumonia (< 1 month) Abnormal pulmonary function Acute myocardial infarction Congestive heart failure (< 1 month) History of inflammatory bowel disease Medical patient at bed rest Age 61-74 Arthroscopic surgery Major open surgery (> 45 min) Laparoscopic surgery (> 45 min) Malignancy Confined to bed (> 72 hours) Immobilizing plaster cast Central venous access Age >= 75 History of VTE Family history of VTE Factor V Leiden Prothrombin [id number] Lupus anticoagulant Anticardiolipin antibodies Elevated serum homocysteine Heparin-induced thrombocytopenia Other congenital or acquired thrombophilia Stroke (< 1 month) Elective arthroplasty Hip, pelvis, or leg fracture Acute spinal cord injury (< 1 month) Prophylaxis Regimen Total Risk Factor Score Risk Level Prophylaxis Regimen 0-1 Low Early ambulation 2 Moderate Order ONE of the following: *Sequential Compression Device (SCD) *Heparin 5000 units SQ BID 3-4 Higher Order ONE of the following medications: *Heparin 5000 units SQ TID *Enoxaparin/Lovenox 40 mg SQ daily (WT < 150 kg, CrCl > 30 mL/min) *Enoxaparin/Lovenox 30 mg SQ daily (WT < 150 kg, CrCl > 10-29 mL/min) *Enoxaparin/Lovenox 30 mg SQ BID (WT < 150 kg, CrCl > 30 mL/min) AND/OR *Sequential Compression Device (SCD) 5 or more Highest Order ONE of the following medications: *Heparin 5000 units SQ TID (Preferred with Epidurals) *Enoxaparin/Lovenox 40 mg SQ daily (WT < 150 kg, CrCl > 30 mL/min) *Enoxaparin/Lovenox 30 mg SQ daily (WT < 150 kg, CrCl > 10-29 mL/min) *Enoxaparin/Lovenox 30 mg SQ BID (WT < 150 kg, CrCl > 30 mL/min) AND *Sequential Compression Device (SCD) Assessment and Plan Assessment and Plan A/P - acute on chronic respiratory failure due to decompensated systolic CHF continue with IV diuretics- monitor I/O and renal function. continue coreg and ramipril. -chest pain with history of CAD- now is pain free continue BB and statin- will trend the cardiac enzymes being f/u by . -COPD- on home oxygen; continue with Spiriva and neb treatments- keep on oxygen to keep O2 sat >90%. -atrial fibrillation; continue Coreg, Amiodarone, Digoxin and Coumadin- monitor on telemetry. -hypertension; resume home meds; will monitor and adjust the regimen as needed. -chronic kidney disease- monitor renal function closely while on IV diuretics -history of DVT/PE; on Coumadin- will consult pharmacy for coumadin dosing -DVT prophylaxis; on Coumadin. Discussed Condition With ER physician and the patient. Physician Certification 2 Midnight Certification Type: Admission for Inpatient Services Order for Inpatient Services The services are ordered in accordance with Medicare regulations or non- Medicare payer requirements, as applicable. In the case of services not specified as inpatient-only, they are appropriately provided as inpatient services in accordance with the 2-midnight benchmark. Estimated LOS (days): 2 days is the estimated time the patient will need to remain in the hospital, assuming treatment plan goals are met and no additional complications. Post-Hospital Plan: Home Problem Qualifiers (1) Acute exacerbation of CHF (congestive heart failure): Qualified Codes: I50.23 - Acute on chronic systolic (congestive) heart failure Herbert Rubio MD Nov 21, 2017 12:56
[2017-11-21] MEDS ORDERED: WARF4TAB52 PO (13:40)
[2017-11-21] MEDS ORDERED: WARF-58 PO (13:40)
[2017-11-21 14:44] VITALS: BP 135/86; PULSE 70; RESP 17; O2SAT 94
[2017-11-21 16:00] VITALS: BP 121/80; O2SAT 93
[2017-11-21] MEDS ORDERED: PILL SPLITTER OTHER PRN (19:45)
[2017-11-21] MEDS: CARVEDILOL 3.125 MG TAB PO SCH (21:00)
[2017-11-21] MEDS ORDERED: ATORVASTATIN 40 MG TAB PO SCH (21:00)
[2017-11-21] MEDS: LORazepam 0.5 MG TAB PO PRN (21:44)
[2017-11-21] MEDS: POTASSIUM CHLORIDE 10 MEQ CONTROLLED RELEASE TAB PO SCH (21:45)
[2017-11-21] MEDS: ATORVASTATIN 40 MG TAB PO SCH (21:45)
[2017-11-21] MEDS: TAMSULOSIN HCL 0.4 MG CAP PO SCH (21:45)
[2017-11-21 21:51] VITALS: BP 105/71; PULSE 73; RESP 18; TEMP 98.2
[2017-11-21 23:48] VITALS: BP 107/72; PULSE 70; RESP 18; TEMP 97.9; O2SAT 93
[2017-11-22] VITALS (8 sets, daily range): BP systolic 103–117; BP diastolic 56–76; PULSE 65–72; RESP 17–18; TEMP 97.5–98.3; O2SAT 93–98
[2017-11-22] MEDS ORDERED: MELATONIN 5 MG TAB PO ONE (00:30)
--- NOTE | 2017-11-22 07:05 | EKG ---
Date Performed: 11/21/2017 Time Performed: 10:24:07 PTAGE: 82 years EKG: UNDERLYING RHYTHM APPEARS TO BE ATRIAL FIBRILLATION WITH 100% VENTRICULAR PACING SIMILIAR T O THE PRIOR TRACING. PREVIOUS TRACING : 10/06/2017 13.36 DOCTOR: Tal Alberto Interpretating Date/Time 11/22/2017 07:05:26
[2017-11-22 07:58] LABS: INTERNATIONAL NORMALIZED RATIO 3.2 RATIO; PROTHROMBIN TIME - PATIENT 31.9 SEC (9.8-11.6)
[2017-11-22 08:16] LABS: BICARBONATE 28.6 MEQ/L (21.0-32.0); CALCIUM 8.4 MG/DL (8.5-10.1); CREATININE 1.43 MG/DL (0.60-1.30)
[2017-11-22] MEDS: CARVEDILOL 3.125 MG TAB PO SCH ×2 (08:57→20:14)
[2017-11-22] MEDS: FINASTERIDE 5 MG TAB PO SCH (08:57)
[2017-11-22] MEDS: DIGOXIN 0.125 MG TAB PO SCH (08:57)
[2017-11-22] MEDS: FUROSEMIDE 40 MG/4 ML VIAL IV PUSH SCH (08:57)
[2017-11-22] MEDS: RAMIPRIL 5 MG CAP PO SCH (08:58)
[2017-11-22] MEDS: PANTOPRAZOLE SOD 40 MG DELAYED RELEASE TAB PO SCH (08:58)
[2017-11-22] MEDS: AMIODARONE 200 MG TAB PO SCH (08:58)
--- NOTE | 2017-11-22 09:39 | HHI.PR ---
Subjective Remarks in no acute distress. still with some sob. although he says that his sob has slightly improved. good urine output. Objective Vitals Vital Signs Date Time Temp Pulse Resp B/P (MAP) Pulse Ox O2 Delivery O2 Flow Rate FiO2 11/22/17 08:26 97.5 71 17 106/67 (80) 93 11/22/17 05:35 69 11/22/17 03:30 98.3 65 17 109/65 (80) 98 11/21/17 23:48 97.9 70 18 107/72 (84) 93 11/21/17 21:51 98.2 73 18 105/71 (82) 11/21/17 16:00 121/80 (94) 93 Room Air 11/21/17 14:44 70 17 135/86 (102) 94 Room Air 11/21/17 11:01 96 Nasal Cannula 2.00 11/21/17 10:58 96 Nasal Cannula 2.00 11/21/17 10:58 96 Nasal Cannula 2.00 11/21/17 10:58 96 Nasal Cannula 2.00 11/21/17 10:04 79 20 127/87 (100) 88 I/O 11/21/17 11/21/17 11/21/17 11/22/17 11/22/17 11/22/17 07:00 15:00 23:00 07:00 15:00 23:00 Intake Total 500 ml 500 ml Output Total 700 ml 900 ml 650 ml Balance -700 ml -400 ml -150 ml Intake Oral 500 ml 500 ml Output Urine Total 700 ml 900 ml 650 ml # Voids 0 # Bowel Movements 0 0 Result Diagram: 11/21/17 1030 11/22/17 0727 Imaging Last Impressions Chest X-Ray 11/21/17 1020 Signed Impressions: Service Date/Time: Tuesday, November 21, 2017 10:49 - CONCLUSION: 1. Cardiomegaly with positive fluid balance. 2. Small right and trace left pleural effusions with associated lower lobe airspace disease, presumably compressive atelectasis. Edgar Forde MD Objective Remarks GENERAL:elderly male, in no apparent distress. CARDIOVASCULAR: Regular rate and irregular rhythm without murmurs, gallops, or rubs. RESPIRATORY: Clear to auscultation. Breath sounds equal bilaterally. No wheezes , rales, or rhonchi. GASTROINTESTINAL: Abdomen soft, non-tender, nondistended. Normal, active bowel sounds MUSCULOSKELETAL: Extremities without clubbing, cyanosis, or edema. NEURO: Alert & Oriented x4 to person, place, time, situation. Moves all ext x4 Medications and IVs Inpatient Medications Albuterol/ Ipratropium (Duoneb Neb) 1 ampule Q4HR NEB PRN NEB SHORTNESS OF BREATH; Start 11/21/17 at 14:00 Amiodarone HCl (Cordarone) 200 mg DAILY PO Last administered on 11/22/17 08:58 ; Start 11/22/17 at 09:00 Aspirin (Aspirin) 325 mg ONCE ONCE PO Last administered on 11/21/17 10:53; Start 11/21/17 at 10:30; Stop 11/21/17 at 10:31; Status DC Atorvastatin Calcium (Lipitor) 40 mg HS PO Last administered on 11/21/17 21:45 ; Start 11/21/17 at 21:00 Carvedilol (Coreg) 3.125 mg BID PO Last administered on 11/22/17 08:57; Start 11/21/17 at 21:00 Digoxin (Lanoxin) 0.125 mg DAILY PO Last administered on 11/22/17 08:57; Start 11/22/17 at 09:00 Finasteride (Proscar) 5 mg DAILY PO Last administered on 11/22/17 08:57; Start 11/22/17 at 09:00 Furosemide (Lasix Inj) 40 mg DAILY IV PUSH Last administered on 11/22/17 08:57 ; Start 11/22/17 at 09:00 Lorazepam (Ativan) 0.5 mg Q12HR PRN PO ANXIETY Last administered on 11/21/17 21 :44; Start 11/21/17 at 14:00 Melatonin (Melatonin) 5 mg ONCE ONCE PO Last administered on 11/22/17 01:18; Start 11/22/17 at 00:30; Stop 11/22/17 at 00:31; Status DC Miscellaneous (Pill Splitter) 1 ea UNSCH PRN OTHER SEE LABEL COMMENTS; Start at 19:45 Pantoprazole Sodium (Protonix) 40 mg DAILY PO Last administered on 11/22/17 08: 58; Start 11/22/17 at 09:00 Patient Medication Teaching (Coumadin Booklet) 1 ONCE ONCE .XX Last administered on 11/21/17at 16:16; Start 11/21/17 at 16:00; Stop 11/21/17 at 16:01; Status DC Pharmacy Profile Note 0 ml @ 0 mls/hr UNSCH OTHER ; Start 11/21/17 at 15:00 Potassium Chloride (KCl) 10 meq HS PO Last administered on 11/21/17at 21:45; Start 11/21/17 at 21:00 Ramipril (Altace) 5 mg DAILY PO Last administered on 11/22/17at 08:58; Start 11/22 at 09:00 Sodium Chloride (NS Flush) 2 ml UNSCH PRN IVF FLUSH AFTER USING IV ACCESS Last administered on 11/21/17at 11:33; Start 11/21/17 at 10:30 Tamsulosin HCl (Flomax) 0.4 mg HS PO Last administered on 11/21/17at 21:45; Start 11/21/17 at 21:00 Tiotropium [place] (Spiriva Inh) 18 mcg DAILY INH ; Start 11/22/17 at 09:00 Warfarin Sodium (Coumadin) 3 mg SuTuThSa@1600 PO ; Start 11/23/17 at 16:00; Status Future Hold A/P Problem List: (1) Acute exacerbation of CHF (congestive heart failure) ICD Code: I50.9 - Heart failure, unspecified Status: Acute Assessment and Plan A/P - acute on chronic respiratory failure due to decompensated systolic CHF continue with IV diuretics- monitor I/O and renal function. continue coreg and ramipril. -chest pain with history of CAD- continue BB and statin- serial troponin negative. being f/u by . -COPD- on home oxygen; continue with Spiriva and neb treatments- keep on oxygen to keep O2 sat >90%. -atrial fibrillation; continue Coreg, Amiodarone, Digoxin and Coumadin- monitor on telemetry. pharmacy consulted for coumadin dosing. -hypertension; resumed home meds; will monitor and adjust the regimen as needed. -chronic kidney disease- monitor renal function closely while on IV diuretics -history of DVT/PE; on Coumadin- consulted pharmacy for coumadin dosing -DVT prophylaxis; on Coumadin. consult PT. Discharge Planning dc planning within the next one-two days if clinically improves. Problem Qualifiers (1) Acute exacerbation of CHF (congestive heart failure): Qualified Codes: I50.23 - Acute on chronic systolic (congestive) heart failure Herbert Rubio MD Nov 22, 2017 09:39
[2017-11-22] MEDS: TIOTROPIUM BROMIDE 18 MCG INH INH SCH (10:19)
--- NOTE | 2017-11-22 14:26 | EKG ---
Date Performed: 11/21/2017 Time Performed: 14:36:47 PTAGE: 82 years EKG: ELECTRONIC VENTRICULAR PACEMAKER PREVIOUS TRACING : 11/21/2017 10.24 DOCTOR: Lavell Rowland Interpretating Date/Time 11/22/2017 14:25:30
[2017-11-22] MEDS ORDERED: WARFARIN SOD 3 MG TAB PO SCH (16:00)
[2017-11-22] MEDS: MELATONIN 5 MG TAB PO PRN (20:14)
[2017-11-22] MEDS: POTASSIUM CHLORIDE 10 MEQ CONTROLLED RELEASE TAB PO SCH (20:14)
[2017-11-22] MEDS: TAMSULOSIN HCL 0.4 MG CAP PO SCH (20:15)
[2017-11-22] MEDS: LORazepam 0.5 MG TAB PO PRN (20:16)
[2017-11-22] MEDS: ATORVASTATIN 40 MG TAB PO SCH (20:16)
[2017-11-23] VITALS (9 sets, daily range): BP systolic 112–126; BP diastolic 71–84; PULSE 69–77; RESP 16–20; TEMP 97.1–98; O2SAT 92–95
[2017-11-23 07:23] LABS: INTERNATIONAL NORMALIZED RATIO 2.3 RATIO; PROTHROMBIN TIME - PATIENT 22.9 SEC (9.8-11.6)
[2017-11-23 07:28] LABS: BICARBONATE 31.7 MEQ/L (21.0-32.0); CALCIUM 8.5 MG/DL (8.5-10.1); CREATININE 1.68 MG/DL (0.60-1.30)
--- NOTE | 2017-11-23 08:53 | HHI.PR ---
Subjective Remarks in no acute distress. still with some sob. good urine output. denies any chest pain today. says that he could get some sleep last night. Objective Vitals Vital Signs Date Time Temp Pulse Resp B/P (MAP) Pulse Ox O2 Delivery O2 Flow Rate FiO2 11/23/17 08:23 97.5 70 18 126/79 (95) 11/23/17 04:39 97.3 70 16 125/84 (98) 93 11/23/17 04:38 74 11/23/17 00:29 98.0 69 16 112/74 (87) 93 11/23/17 00:10 95 Nasal Cannula 2.00 11/22/17 20:19 97.7 72 18 117/76 (90) 93 11/22/17 16:05 97.6 71 17 103/56 (72) 93 11/22/17 12:18 97.6 70 17 112/73 (86) 94 11/22/17 12:00 69 I/O 11/22/17 11/22/17 11/22/17 11/23/17 11/23/17 11/23/17 07:00 15:00 23:00 07:00 15:00 23:00 Intake Total 500 ml 840 ml Output Total 650 ml 1300 ml 900 ml Balance -150 ml -460 ml -900 ml Intake Oral 500 ml 840 ml Output Urine Total 650 ml 1300 ml 900 ml # Bowel Movements 0 1 Result Diagram: 11/21/17 1030 11/23/17 0538 Imaging Last Impressions Chest X-Ray 11/21/17 1020 Signed Impressions: Service Date/Time: Tuesday, November 21, 2017 10:49 - CONCLUSION: 1. Cardiomegaly with positive fluid balance. 2. Small right and trace left pleural effusions with associated lower lobe airspace disease, presumably compressive atelectasis. Edgar Forde MD Objective Remarks GENERAL:elderly male, in no apparent distress. CARDIOVASCULAR: Regular rate and irregular rhythm without murmurs, gallops, or rubs. RESPIRATORY: Clear to auscultation. Breath sounds equal bilaterally. No wheezes , rales, or rhonchi. GASTROINTESTINAL: Abdomen soft, non-tender, nondistended. Normal, active bowel sounds MUSCULOSKELETAL: Extremities without clubbing, cyanosis, or edema. NEURO: Alert & Oriented x4 to person, place, time, situation. Moves all ext x4 Medications and IVs Inpatient Medications Albuterol/ Ipratropium (Duoneb Neb) 1 ampule Q4HR NEB PRN NEB SHORTNESS OF BREATH; Start 11/21/17 at 14:00 Amiodarone HCl (Cordarone) 200 mg DAILY PO Last administered on 11/22/17 08:58 ; Start 11/22/17 at 09:00 Aspirin (Aspirin) 325 mg ONCE ONCE PO Last administered on 11/21/17 10:53; Start 11/21/17 at 10:30; Stop 11/21/17 at 10:31; Status DC Atorvastatin Calcium (Lipitor) 40 mg HS PO Last administered on 11/22/17 20:16 ; Start 11/21/17 at 21:00 Carvedilol (Coreg) 3.125 mg BID PO Last administered on 11/22/17 20:14; Start 11/21/17 at 21:00 Digoxin (Lanoxin) 0.125 mg DAILY PO Last administered on 11/22/17at 08:57; Start 11/22/17 at 09:00 Finasteride (Proscar) 5 mg DAILY PO Last administered on 11/22/17 08:57; Start 11/22/17 at 09:00 Furosemide (Lasix Inj) 40 mg DAILY IV PUSH Last administered on 11/22/17 08:57 ; Start 11/22/17 at 09:00 Lorazepam (Ativan) 0.5 mg Q12HR PRN PO ANXIETY Last administered on 11/22/17 20 :16; Start 11/21/17 at 14:00 Melatonin (Melatonin) 5 mg HS PRN PO INSOMNIA Last administered on 11/22/17 20: 14; Start 11/22/17 at 15:45 Miscellaneous (Pill Splitter) 1 ea UNSCH PRN OTHER SEE LABEL COMMENTS; Start at 19:45 Pantoprazole Sodium (Protonix) 40 mg DAILY PO Last administered on 11/22/17 08: 58; Start 11/22/17 at 09:00 Patient Medication Teaching (Coumadin Booklet) 1 ONCE ONCE .XX Last administered on 11/21/17 16:16; Start 11/21/17 at 16:00; Stop 11/21/17 at 16:01; Status DC Pharmacy Profile Note 0 ml @ 0 mls/hr UNSCH OTHER ; Start 11/21/17 at 15:00 Potassium Chloride (KCl) 10 meq HS PO Last administered on 11/22/17at 20:14; Start 11/21/17 at 21:00 Ramipril (Altace) 5 mg DAILY PO Last administered on 11/22/17at 08:58; Start 11/22 at 09:00 Sodium Chloride (NS Flush) 2 ml UNSCH PRN IVF FLUSH AFTER USING IV ACCESS Last administered on 11/21/17at 11:33; Start 11/21/17 at 10:30 Tamsulosin HCl (Flomax) 0.4 mg HS PO Last administered on 11/21/17at 21:45; Start 11/21/17 at 21:00 Tiotropium [place] (Spiriva Inh) 18 mcg DAILY INH Last administered on at 10:19; Start 11/22/17 at 09:00 Warfarin Sodium (Coumadin) 3 mg SuTuThSa@1600 PO ; Start 11/23/17 at 16:00; Status Future Hold A/P Problem List: (1) Acute exacerbation of CHF (congestive heart failure) ICD Code: I50.9 - Heart failure, unspecified Status: Acute Assessment and Plan A/P - acute on chronic respiratory failure due to decompensated systolic CHF continue with IV diuretics; will give an extra-dose of IV lasix this afternoon - monitor I/O and renal function. continue coreg and ramipril. -chest pain with history of CAD- chest pain free today. continue BB and statin- serial troponin negative. being f/u by . -COPD- on home oxygen; continue with Spiriva and neb treatments- keep on oxygen to keep O2 sat >90%. -atrial fibrillation; continue Coreg, Amiodarone, Digoxin and Coumadin- monitor on telemetry. pharmacy consulted for coumadin dosing. -hypertension; resumed home meds; will monitor and adjust the regimen as needed. -chronic kidney disease- monitor renal function closely while on IV diuretics -history of DVT/PE; on Coumadin- consulted pharmacy for coumadin dosing -DVT prophylaxis; on Coumadin. continue PT. Discharge Planning still with some sob; dc planning within the next one-two days if clinically improves. case management for [facility]. Problem Qualifiers (1) Acute exacerbation of CHF (congestive heart failure): Qualified Codes: I50.23 - Acute on chronic systolic (congestive) heart failure Herbert Rubio MD Nov 23, 2017 08:53
--- NOTE | 2017-11-23 08:53 | HHI.FF ---
Face to Face Verification Diagnosis: (1) Acute exacerbation of CHF (congestive heart failure) Physical Therapy Order: Evaluate and Treat Occupational Therapy Order: Evaluate and Treat Home Health Nursing Order: Medical education Signs/symptoms of disease process CHF education Medication education-adverse effect Nursing assessment with vital signs I have seen patient Igor Dias on 11/23/17. My clinical findings support the need for the requested home health care services because: Ltd mobility - disease progression Patient has SOB I certify that my clinical findings support that this patient is homebound because: Unsteady gait/balance Poor cardiac reserve Herbert Rubio MD Nov 23, 2017 08:53
[2017-11-23] MEDS: DIGOXIN 0.125 MG TAB PO SCH (08:59)
[2017-11-23] MEDS: FUROSEMIDE 40 MG/4 ML VIAL IV PUSH SCH (08:59)
[2017-11-23] MEDS: AMIODARONE 200 MG TAB PO SCH (08:59)
[2017-11-23] MEDS: RAMIPRIL 5 MG CAP PO SCH (08:59)
[2017-11-23] MEDS: PANTOPRAZOLE SOD 40 MG DELAYED RELEASE TAB PO SCH (08:59)
[2017-11-23] MEDS: FINASTERIDE 5 MG TAB PO SCH (08:59)
[2017-11-23] MEDS: CARVEDILOL 3.125 MG TAB PO SCH ×2 (08:59→20:44)
[2017-11-23] MEDS: TIOTROPIUM BROMIDE 18 MCG INH INH SCH (09:00)
[2017-11-23] MEDS: RESP: ALBUTEROL 2.5 MG/IPRATROPIUM 0.5 MG NEB (PRN) NEB (11:46)
[2017-11-23] MEDS: WARFARIN SOD 2 MG TAB PO SCH (15:39)
[2017-11-23] MEDS ORDERED: FUROSEMIDE 20 MG/2 ML VIAL IV PUSH ONE (16:00)
[2017-11-23] MEDS ORDERED: WARFARIN SOD 3 MG TAB PO SCH (16:00)
[2017-11-23] MEDS: POTASSIUM CHLORIDE 10 MEQ CONTROLLED RELEASE TAB PO SCH (20:44)
[2017-11-23] MEDS: TAMSULOSIN HCL 0.4 MG CAP PO SCH (20:44)
[2017-11-23] MEDS: LORazepam 0.5 MG TAB PO PRN (20:44)
[2017-11-23] MEDS: ATORVASTATIN 40 MG TAB PO SCH (20:44)
[2017-11-23] MEDS: MELATONIN 5 MG TAB PO PRN (20:44)
[2017-11-24] VITALS (9 sets, daily range): BP systolic 104–121; BP diastolic 60–81; PULSE 69–77; RESP 18–19; TEMP 97.2–98.1; O2SAT 91–99
[2017-11-24 07:41] LABS: INTERNATIONAL NORMALIZED RATIO 2.2 RATIO; PROTHROMBIN TIME - PATIENT 21.8 SEC (9.8-11.6)
[2017-11-24 07:58] LABS: BICARBONATE 33.2 MEQ/L (21.0-32.0); CALCIUM 8.4 MG/DL (8.5-10.1); CREATININE 1.62 MG/DL (0.60-1.30)
[2017-11-24] MEDS: TIOTROPIUM BROMIDE 18 MCG INH INH SCH (09:00)
--- NOTE | 2017-11-24 09:44 | HHI.PR ---
Subjective Remarks in no acute distress. denies chest pain but still with some sob. no chest pain. Objective Vitals Vital Signs Date Time Temp Pulse Resp B/P (MAP) Pulse Ox O2 Delivery O2 Flow Rate FiO2 11/24/17 08:00 97.4 70 19 121/73 (89) 95 11/24/17 04:00 69 11/24/17 04:00 98.1 70 18 111/73 (86) 91 11/24/17 00:00 70 11/24/17 00:00 98.1 71 18 115/60 (78) 92 11/23/17 20:00 97.7 69 18 113/71 (85) 94 11/23/17 20:00 72 11/23/17 17:23 97.4 69 20 116/79 (91) 92 11/23/17 12:28 97.1 70 20 117/80 (92) 94 11/23/17 12:04 77 11/23/17 09:55 Nasal Cannula 2.00 I/O 11/23/17 11/23/17 11/23/17 11/24/17 11/24/17 11/24/17 07:00 15:00 23:00 07:00 15:00 23:00 Intake Total 600 ml Output Total 900 ml 1150 ml 920 ml 850 ml Balance -900 ml -550 ml -920 ml -850 ml Intake Oral 600 ml Output Urine Total 900 ml 1150 ml 920 ml 850 ml # Bowel Movements 1 2 Result Diagram: 11/21/17 1030 11/24/17 0658 Imaging Last Impressions Chest X-Ray 11/21/17 1020 Signed Impressions: Service Date/Time: Tuesday, November 21, 2017 10:49 - CONCLUSION: 1. Cardiomegaly with positive fluid balance. 2. Small right and trace left pleural effusions with associated lower lobe airspace disease, presumably compressive atelectasis. Edgar Forde MD Objective Remarks GENERAL:elderly male, in no apparent distress. CARDIOVASCULAR: Regular rate and irregular rhythm without murmurs, gallops, or rubs. RESPIRATORY: Clear to auscultation. Breath sounds equal bilaterally. No wheezes , rales, or rhonchi. GASTROINTESTINAL: Abdomen soft, non-tender, nondistended. Normal, active bowel sounds MUSCULOSKELETAL: Extremities without clubbing, cyanosis, or edema. NEURO: Alert & Oriented x4 to person, place, time, situation. Moves all ext x4 Medications and IVs Inpatient Medications Albuterol/ Ipratropium (Duoneb Neb) 1 ampule Q4HR NEB PRN NEB SHORTNESS OF BREATH Last administered on 11/23/17 11:46; Start 11/21/17 at 14:00 Amiodarone HCl (Cordarone) 200 mg DAILY PO Last administered on 11/23/17 08:59 ; Start 11/22/17 at 09:00 Aspirin (Aspirin) 325 mg ONCE ONCE PO Last administered on 11/21/17 10:53; Start 11/21/17 at 10:30; Stop 11/21/17 at 10:31; Status DC Atorvastatin Calcium (Lipitor) 40 mg HS PO Last administered on 11/23/17 20:44 ; Start 11/21/17 at 21:00 Carvedilol (Coreg) 3.125 mg BID PO Last administered on 11/23/17 20:44; Start 11/21/17 at 21:00 Digoxin (Lanoxin) 0.125 mg DAILY PO Last administered on 11/23/17 08:59; Start 11/22/17 at 09:00 Finasteride (Proscar) 5 mg DAILY PO Last administered on 11/23/17 08:59; Start 11/22/17 at 09:00 Furosemide (Lasix Inj) 20 mg ONCE ONCE IV PUSH Last administered on 11/23/17 15:39; Start 11/23/17 at 16:00; Stop 11/23/17 at 16:01; Status DC Lorazepam (Ativan) 0.5 mg Q12HR PRN PO ANXIETY Last administered on 11/23/17 20 :44; Start 11/21/17 at 14:00 Melatonin (Melatonin) 5 mg HS PRN PO INSOMNIA Last administered on 11/23/17 20: 44; Start 11/22/17 at 15:45 Miscellaneous (Pill Splitter) 1 ea UNSCH PRN OTHER SEE LABEL COMMENTS; Start at 19:45 Pantoprazole Sodium (Protonix) 40 mg DAILY PO Last administered on 11/23/17 08: 59; Start 11/22/17 at 09:00 Patient Medication Teaching (Coumadin Booklet) 1 ONCE ONCE .XX Last administered on 11/21/17 16:16; Start 11/21/17 at 16:00; Stop 11/21/17 at 16:01; Status DC Pharmacy Profile Note 0 ml @ 0 mls/hr UNSCH OTHER ; Start 11/21/17 at 15:00 Potassium Chloride (KCl) 10 meq HS PO Last administered on 11/23/17 20:44; Start 11/21/17 at 21:00 Ramipril (Altace) 5 mg DAILY PO Last administered on 11/23/17 08:59; Start 11/22 at 09:00 Sodium Chloride (NS Flush) 2 ml UNSCH PRN IVF FLUSH AFTER USING IV ACCESS Last administered on 11/21/17 11:33; Start 11/21/17 at 10:30 Tamsulosin HCl (Flomax) 0.4 mg HS PO Last administered on 11/23/17 20:44; Start 11/21/17 at 21:00 Tiotropium [place] (Spiriva Inh) 18 mcg DAILY INH Last administered on 09:00; Start 11/22/17 at 09:00 Warfarin Sodium (Coumadin) 2 mg SuTuThSa@1600 PO Last administered on 11/23/17 15:39; Start 11/23/17 at 16:00 A/P Problem List: (1) Acute exacerbation of CHF (congestive heart failure) ICD Code: I50.9 - Heart failure, unspecified Status: Acute Assessment and Plan A/P - acute on chronic respiratory failure due to decompensated systolic CHF- improving slowly. continue with IV diuretics; will repeat an extra-dose of IV lasix this afternoon- monitor I/O and renal function. continue coreg and ramipril. -chest pain with history of CAD- chest pain free today. continue BB and statin- serial troponin negative. being f/u by . -COPD- on home oxygen; continue with Spiriva and neb treatments- keep on oxygen to keep O2 sat >90%. -atrial fibrillation; continue Coreg, Amiodarone, Digoxin and Coumadin- monitor on telemetry. pharmacy consulted for coumadin dosing. -hypertension; resumed home meds; will monitor and adjust the regimen as needed. -chronic kidney disease- monitor renal function closely while on IV diuretics -history of DVT/PE; on Coumadin- consulted pharmacy for coumadin dosing -DVT prophylaxis; on Coumadin. continue PT. Discharge Planning still with some sob; dc planning within the next one-two days if clinically improves. d/w the patient about rehab; he would like to talk to case management. consult case management to assist. Problem Qualifiers (1) Acute exacerbation of CHF (congestive heart failure): Qualified Codes: I50.23 - Acute on chronic systolic (congestive) heart failure Herbert Rubio MD Nov 24, 2017 09:44
[2017-11-24] MEDS: RAMIPRIL 5 MG CAP PO SCH (10:36)
[2017-11-24] MEDS: CARVEDILOL 3.125 MG TAB PO SCH ×2 (10:36→20:29)
[2017-11-24] MEDS: PANTOPRAZOLE SOD 40 MG DELAYED RELEASE TAB PO SCH (10:36)
[2017-11-24] MEDS: AMIODARONE 200 MG TAB PO SCH (10:37)
[2017-11-24] MEDS: FINASTERIDE 5 MG TAB PO SCH (10:37)
[2017-11-24] MEDS: FUROSEMIDE 40 MG/4 ML VIAL IV PUSH SCH (10:37)
[2017-11-24] MEDS: DIGOXIN 0.125 MG TAB PO SCH (10:37)
[2017-11-24] MEDS ORDERED: FUROSEMIDE 20 MG/2 ML VIAL IV PUSH ONE (16:00)
[2017-11-24] MEDS: RESP: ALBUTEROL 2.5 MG/IPRATROPIUM 0.5 MG NEB (PRN) NEB (19:32)
[2017-11-24] MEDS: POTASSIUM CHLORIDE 10 MEQ CONTROLLED RELEASE TAB PO SCH (20:29)
[2017-11-24] MEDS: LORazepam 0.5 MG TAB PO PRN (20:29)
[2017-11-24] MEDS: TAMSULOSIN HCL 0.4 MG CAP PO SCH (20:29)
[2017-11-24] MEDS: MELATONIN 5 MG TAB PO PRN (20:30)
[2017-11-24] MEDS: ATORVASTATIN 40 MG TAB PO SCH (20:30)
[2017-11-25] VITALS (10 sets, daily range): BP systolic 98–112; BP diastolic 58–69; PULSE 65–74; RESP 18–20; TEMP 97.3–97.9; O2SAT 91–98
[2017-11-25 08:11] LABS: INTERNATIONAL NORMALIZED RATIO 2.1 RATIO
[2017-11-25] MEDS: FINASTERIDE 5 MG TAB PO SCH (08:18)
[2017-11-25] MEDS: PANTOPRAZOLE SOD 40 MG DELAYED RELEASE TAB PO SCH (08:18)
[2017-11-25] MEDS: RAMIPRIL 5 MG CAP PO SCH (08:18)
[2017-11-25] MEDS: DIGOXIN 0.125 MG TAB PO SCH (08:18)
[2017-11-25] MEDS: CARVEDILOL 3.125 MG TAB PO SCH ×2 (08:19→20:04)
[2017-11-25] MEDS: AMIODARONE 200 MG TAB PO SCH (08:19)
[2017-11-25] MEDS: FUROSEMIDE 40 MG/4 ML VIAL IV PUSH SCH (08:19)
[2017-11-25] MEDS: TIOTROPIUM BROMIDE 18 MCG INH INH SCH (08:21)
--- NOTE | 2017-11-25 09:11 | HHI.PR ---
Subjective Remarks in no acute distress. sob has improved. no pain. overall feeling better. Objective Vitals Vital Signs Date Time Temp Pulse Resp B/P (MAP) Pulse Ox O2 Delivery O2 Flow Rate FiO2 11/25/17 08:09 97.7 74 18 112/69 (83) 91 11/25/17 04:00 70 11/25/17 04:00 97.6 70 18 110/65 (80) 94 11/25/17 00:00 97.5 70 18 98/66 (77) 98 11/25/17 00:00 69 11/24/17 20:00 71 11/24/17 19:32 93 Nasal Cannula 2.00 11/24/17 18:25 70 11/24/17 16:00 97.2 74 18 114/75 (88) 94 11/24/17 12:42 Nasal Cannula 2.00 11/24/17 12:00 97.5 76 18 104/81 (89) 99 11/24/17 11:56 77 I/O 11/24/17 11/24/17 11/24/17 11/25/17 11/25/17 11/25/17 07:00 15:00 23:00 07:00 15:00 23:00 Intake Total 720 ml Output Total 850 ml 1050 ml Balance -850 ml -330 ml Intake Oral 720 ml Output Urine Total 850 ml 1050 ml # Voids 0 # Bowel Movements 2 0 0 Result Diagram: 11/21/17 1030 11/24/17 0658 Imaging Last Impressions Chest X-Ray 11/21/17 1020 Signed Impressions: Service Date/Time: Tuesday, November 21, 2017 10:49 - CONCLUSION: 1. Cardiomegaly with positive fluid balance. 2. Small right and trace left pleural effusions with associated lower lobe airspace disease, presumably compressive atelectasis. Edgar Forde MD Objective Remarks GENERAL:elderly male, in no apparent distress. CARDIOVASCULAR: Regular rate and irregular rhythm without murmurs, gallops, or rubs. RESPIRATORY: Clear to auscultation. Breath sounds equal bilaterally. No wheezes , rales, or rhonchi. GASTROINTESTINAL: Abdomen soft, non-tender, nondistended. Normal, active bowel sounds MUSCULOSKELETAL: Extremities without clubbing, cyanosis, or edema. NEURO: Alert & Oriented x4 to person, place, time, situation. Moves all ext x4 Medications and IVs Inpatient Medications Albuterol/ Ipratropium (Duoneb Neb) 1 ampule Q4HR NEB PRN NEB SHORTNESS OF BREATH Last administered on 11/24/17 19:32; Start 11/21/17 at 14:00 Amiodarone HCl (Cordarone) 200 mg DAILY PO Last administered on 11/25/17 08:19 ; Start 11/22/17 at 09:00 Aspirin (Aspirin) 325 mg ONCE ONCE PO Last administered on 11/21/17 10:53; Start 11/21/17 at 10:30; Stop 11/21/17 at 10:31; Status DC Atorvastatin Calcium (Lipitor) 40 mg HS PO Last administered on 11/24/17 20:30 ; Start 11/21/17 at 21:00 Carvedilol (Coreg) 3.125 mg BID PO Last administered on 11/25/17 08:19; Start 11/21/17 at 21:00 Digoxin (Lanoxin) 0.125 mg DAILY PO Last administered on 11/25/17 08:18; Start 11/22/17 at 09:00 Finasteride (Proscar) 5 mg DAILY PO Last administered on 11/25/17 08:18; Start 11/22/17 at 09:00 Furosemide (Lasix Inj) 20 mg ONCE ONCE IV PUSH Last administered on 11/24/17 16:35; Start 11/24/17 at 16:00; Stop 11/24/17 at 16:01; Status DC Lorazepam (Ativan) 0.5 mg Q12HR PRN PO ANXIETY Last administered on 11/24/17 20 :29; Start 11/21/17 at 14:00 Melatonin (Melatonin) 5 mg HS PRN PO INSOMNIA Last administered on 11/24/17 20: 30; Start 11/22/17 at 15:45 Miscellaneous (Pill Splitter) 1 ea UNSCH PRN OTHER SEE LABEL COMMENTS; Start at 19:45 Pantoprazole Sodium (Protonix) 40 mg DAILY PO Last administered on 11/25/17 08 :18; Start 11/22/17 at 09:00 Patient Medication Teaching (Coumadin Booklet) 1 ONCE ONCE .XX Last administered on 3/6/18at 16:16; Start 11/21/17 at 16:00; Stop 11/21/17 at 16:01; Status DC Pharmacy Profile Note 0 ml @ 0 mls/hr UNSCH OTHER ; Start 11/21/17 at 15:00 Potassium Chloride (KCl) 10 meq HS PO Last administered on 11/24/17 20:29; Start 11/21/17 at 21:00 Ramipril (Altace) 5 mg DAILY PO Last administered on 11/25/17 08:18; Start 11/22/17 at 09:00 Sodium Chloride (NS Flush) 2 ml UNSCH PRN IVF FLUSH AFTER USING IV ACCESS Last administered on 11/21/17 11:33; Start 11/21/17 at 10:30 Tamsulosin HCl (Flomax) 0.4 mg HS PO Last administered on 11/24/17 20:29; Start 11/21/17 at 21:00 Tiotropium [place] (Spiriva Inh) 18 mcg DAILY INH Last administered on 08:21; Start 11/22/17 at 09:00 Warfarin Sodium (Coumadin) 2 mg SuTuThSa@1600 PO Last administered on 11/23/17 15:39; Start 11/23/17 at 16:00 A/P Problem List: (1) Acute exacerbation of CHF (congestive heart failure) ICD Code: I50.9 - Heart failure, unspecified Status: Acute Assessment and Plan A/P - acute on chronic respiratory failure due to decompensated systolic CHF- improved. switch to po diuretics. continue coreg and ramipril. -chest pain with history of CAD- chest pain free today. continue BB and statin- serial troponin negative. being f/u by . -COPD- on home oxygen; continue with Spiriva and neb treatments- keep on oxygen to keep O2 sat >90%. -atrial fibrillation; continue Coreg, Amiodarone, Digoxin and Coumadin- -hypertension; resumed home meds; will monitor and adjust the regimen as needed. -chronic kidney disease- stable. -history of DVT/PE; on Coumadin- -DVT prophylaxis; on Coumadin. continue PT. Discharge Planning dc to SNF when arrangements made. see med list. f/u; pcp and cardiology. d/w the patient. time spent 35 min. Problem Qualifiers (1) Acute exacerbation of CHF (congestive heart failure): Qualified Codes: I50.23 - Acute on chronic systolic (congestive) heart failure Herbert Rubio MD Nov 25, 2017 09:11
[2017-11-25] MEDS ORDERED: ACET300T2 PO (09:13)
[2017-11-25] MEDS ORDERED: LORA0.5T PO (09:13)
[2017-11-25] MEDS ORDERED: TORS20TA PO (09:13)
--- NOTE | 2017-11-25 09:14 | HHI.DS ---
Discharge Summary Admission Date Nov 21, 2017 at 12:12 Discharge Date: Nov 25, 2017 Admitting Diagnosis CHF exacerbation (1) Acute exacerbation of CHF (congestive heart failure) ICD Code: I50.9 - Heart failure, unspecified Diagnosis: Principal Status: Acute Procedures none Brief History - From Admission patient is a 82 y/o male, known to me from the previous admission, with history of CAD, CHF, s/p AICD placement, COPD- on home oxygen, who presented to ER with chest pain. he says that he woke up this morning and started to have some chest pain. pain was localized to left lower chest with no radiation. pain was not associated with nausea,emesis or diaphoresis. he was pain free at the time of my evaluation. he says that he's on oxygen at home but it seems that his sob has been getting worse. he's not sure if he had any recent weight gain but he reports some orthopnea. CBC/BMP: 11/21/17 1030 11/24/17 0658 Significant Findings Laboratory Tests Test 11/23/17 05:38 11/24/17 06:58 11/25/17 06:10 Prothrombin Time 22.9 SEC (9.8-11.6) 21.8 SEC (9.8-11.6) 21.0 SEC (9.8-11.6) Blood Urea Nitrogen 26 MG/DL (7-18) 25 MG/DL (7-18) Creatinine 1.68 MG/DL (0.60-1.30) 1.62 MG/DL (0.60-1.30) Random Glucose 118 MG/DL (74-106) 129 MG/DL (74-106) Estimat Glomerular Filtration Rate 39 ML/MIN (>89) 41 ML/MIN (>89) Calcium Level 8.4 MG/DL (8.5-10.1) Carbon Dioxide Level 33.2 MEQ/L (21.0-32.0) Imaging Last Impressions Chest X-Ray 11/21/17 1020 Signed Impressions: Service Date/Time: Tuesday, November 21, 2017 10:49 - CONCLUSION: 1. Cardiomegaly with positive fluid balance. 2. Small right and trace left pleural effusions with associated lower lobe airspace disease, presumably compressive atelectasis. Edgar Forde MD PE at Discharge GENERAL:elderly male, in no apparent distress. CARDIOVASCULAR: Regular rate and irregular rhythm without murmurs, gallops, or rubs. RESPIRATORY: Clear to auscultation. Breath sounds equal bilaterally. No wheezes , rales, or rhonchi. GASTROINTESTINAL: Abdomen soft, non-tender, nondistended. Normal, active bowel sounds MUSCULOSKELETAL: Extremities without clubbing, cyanosis, or edema. NEURO: Alert & Oriented x4 to person, place, time, situation. Moves all ext x4 Hospital Course - acute on chronic respiratory failure due to decompensated systolic CHF- improved. switch to po diuretics. continue coreg and ramipril. -chest pain with history of CAD- chest pain free today. continue BB and statin- serial troponin negative. being f/u by . -COPD- on home oxygen; continue with Spiriva and neb treatments- keep on oxygen to keep O2 sat >90%. -atrial fibrillation; continue Coreg, Amiodarone, Digoxin and Coumadin- -hypertension; resumed home meds; will monitor and adjust the regimen as needed. -chronic kidney disease- stable. -history of DVT/PE; on Coumadin- -DVT prophylaxis; on Coumadin. Pt Condition on Discharge: Fair Discharge Disposition: Discharge to SNF Discharge Time: > 30 minutes Discharge Instructions DIET: Follow Instructions for: Heart Healthy Diet Activities you can perform: Regular-No Restrictions Herbert Rubio MD Nov 25, 2017 09:14
[2017-11-25] MEDS ORDERED: TAMS5CAP PO (09:17)
[2017-11-25] MEDS: WARFARIN SOD 2 MG TAB PO SCH (15:39)
[2017-11-25] MEDS: POTASSIUM CHLORIDE 10 MEQ CONTROLLED RELEASE TAB PO SCH (20:05)
[2017-11-25] MEDS: LORazepam 0.5 MG TAB PO PRN (20:06)
[2017-11-25] MEDS: TAMSULOSIN HCL 0.4 MG CAP PO SCH (20:06)
[2017-11-25] MEDS: MELATONIN 5 MG TAB PO PRN (20:06)
[2017-11-25] MEDS: ATORVASTATIN 40 MG TAB PO SCH (20:06)
[2017-11-26] VITALS: BP 98/59; PULSE 70; RESP 22; TEMP 98.3; O2SAT 96
[2017-11-26 04:00] VITALS: BP 100/65; PULSE 69; RESP 18; TEMP 97.3; O2SAT 96
[2017-11-26 08:00] VITALS: BP 112/69; PULSE 70; RESP 18; TEMP 97.5; O2SAT 91
[2017-11-26 09:16] LABS: PROTHROMBIN TIME - PATIENT 20.6 SEC (9.8-11.6)
[2017-11-26] MEDS: RAMIPRIL 5 MG CAP PO SCH (09:17)
[2017-11-26] MEDS: AMIODARONE 200 MG TAB PO SCH (09:17)
[2017-11-26] MEDS: PANTOPRAZOLE SOD 40 MG DELAYED RELEASE TAB PO SCH (09:17)
[2017-11-26] MEDS: CARVEDILOL 3.125 MG TAB PO SCH (09:18)
[2017-11-26] MEDS: DIGOXIN 0.125 MG TAB PO SCH (09:18)
[2017-11-26] MEDS: FINASTERIDE 5 MG TAB PO SCH (09:18)
[2017-11-26] MEDS: TIOTROPIUM BROMIDE 18 MCG INH INH SCH (09:19)
[2017-11-26 09:20] VITALS: PULSE 71
--- NOTE | 2017-11-26 10:20 | HHI.PR ---
Subjective Remarks in no acute distress. sob continues to improve. no chest pain. awaiting discharge to rehab. d/w the RN. Objective Vitals Vital Signs Date Time Temp Pulse Resp B/P (MAP) Pulse Ox O2 Delivery O2 Flow Rate FiO2 11/26/17 09:20 71 11/26/17 08:00 97.5 70 18 112/69 (83) 91 11/26/17 04:00 69 11/26/17 04:00 97.3 69 18 100/65 (77) 96 11/26/17 00:00 98.3 70 22 98/59 (72) 96 11/25/17 21:27 95 Nasal Cannula 4.00 11/25/17 20:00 69 11/25/17 19:56 97.3 70 20 100/69 (79) 95 11/25/17 16:39 70 11/25/17 16:07 97.9 74 18 100/58 (72) 98 11/25/17 12:40 65 18 100/60 (73) 96 103/64 (77) I/O 11/25/17 11/25/17 11/25/17 11/26/17 11/26/17 11/26/17 07:00 15:00 23:00 07:00 15:00 23:00 Output Total 1200 ml 1200 ml Balance -1200 ml -1200 ml Output Urine Total 1200 ml 1200 ml # Voids 0 # Bowel Movements 0 0 Result Diagram: 11/24/17 0658 Imaging Last Impressions Chest X-Ray 11/21/17 1020 Signed Impressions: Service Date/Time: Tuesday, November 21, 2017 10:49 - CONCLUSION: 1. Cardiomegaly with positive fluid balance. 2. Small right and trace left pleural effusions with associated lower lobe airspace disease, presumably compressive atelectasis. Edgar Forde MD Objective Remarks GENERAL:elderly male, in no apparent distress. CARDIOVASCULAR: Regular rate and irregular rhythm without murmurs, gallops, or rubs. RESPIRATORY: Clear to auscultation. Breath sounds equal bilaterally. No wheezes , rales, or rhonchi. GASTROINTESTINAL: Abdomen soft, non-tender, nondistended. Normal, active bowel sounds MUSCULOSKELETAL: Extremities without clubbing, cyanosis, or edema. NEURO: Alert & Oriented x4 to person, place, time, situation. Moves all ext x4 Procedures none Medications and IVs Inpatient Medications Albuterol/ Ipratropium (Duoneb Neb) 1 ampule Q4HR NEB PRN NEB SHORTNESS OF BREATH Last administered on 11/24/17 19:32; Start 11/21/17 at 14:00 Amiodarone HCl (Cordarone) 200 mg DAILY PO Last administered on 11/26/17 09:17 ; Start 11/22/17 at 09:00 Aspirin (Aspirin) 325 mg ONCE ONCE PO Last administered on 11/21/17 10:53; Start 11/21/17 at 10:30; Stop 11/21/17 at 10:31; Status DC Atorvastatin Calcium (Lipitor) 40 mg HS PO Last administered on 11/25/17 20:06 ; Start 11/21/17 at 21:00 Carvedilol (Coreg) 3.125 mg BID PO Last administered on 11/26/17 09:18; Start 11/21/17 at 21:00 Digoxin (Lanoxin) 0.125 mg DAILY PO Last administered on 11/26/17 09:18; Start 11/22/17 at 09:00 Finasteride (Proscar) 5 mg DAILY PO Last administered on 11/26/17 09:18; Start 11/22/17 at 09:00 Furosemide (Lasix Inj) 20 mg ONCE ONCE IV PUSH Last administered on 11/24/17 16:35; Start 11/24/17 at 16:00; Stop 11/24/17 at 16:01; Status DC Lorazepam (Ativan) 0.5 mg Q12HR PRN PO ANXIETY Last administered on 11/25/17 20:06; Start 11/21/17 at 14:00 Melatonin (Melatonin) 5 mg HS PRN PO INSOMNIA Last administered on 11/25/17 20 :06; Start 11/22/17 at 15:45 Miscellaneous (Pill Splitter) 1 ea UNSCH PRN OTHER SEE LABEL COMMENTS; Start at 19:45 Pantoprazole Sodium (Protonix) 40 mg DAILY PO Last administered on 11/26/17 09 :17; Start 11/22/17 at 09:00 Patient Medication Teaching (Coumadin Booklet) 1 ONCE ONCE .XX Last administered on 3/6/18at 16:16; Start 11/21/17 at 16:00; Stop 11/21/17 at 16:01; Status DC Pharmacy Profile Note 0 ml @ 0 mls/hr UNSCH OTHER ; Start 11/21/17 at 15:00 Potassium Chloride (KCl) 10 meq HS PO Last administered on 11/25/17at 20:05; Start 11/21/17 at 21:00 Ramipril (Altace) 5 mg DAILY PO Last administered on 11/26/17at 09:17; Start 11/22/17 at 09:00 Sodium Chloride (NS Flush) 2 ml UNSCH PRN IVF FLUSH AFTER USING IV ACCESS Last administered on 11/21/17at 11:33; Start 11/21/17 at 10:30 Tamsulosin HCl (Flomax) 0.4 mg HS PO Last administered on 11/25/17at 20:06; Start 11/21/17 at 21:00 Tiotropium [place] (Spiriva Inh) 18 mcg DAILY INH Last administered on at 09:19; Start 11/22/17 at 09:00 Warfarin Sodium (Coumadin) 2 mg SuTuThSa@1600 PO Last administered on at 15:39; Start 11/23/17 at 16:00 A/P Problem List: (1) Acute exacerbation of CHF (congestive heart failure) ICD Code: I50.9 - Heart failure, unspecified Status: Acute Assessment and Plan A/P - acute on chronic respiratory failure due to decompensated systolic CHF- improved. switch to po diuretics. continue coreg and ramipril. -chest pain with history of CAD- chest pain free today. continue BB and statin- serial troponin negative. being f/u by . -COPD- on home oxygen; continue with Spiriva and neb treatments- keep on oxygen to keep O2 sat >90%. -atrial fibrillation; continue Coreg, Amiodarone, Digoxin and Coumadin- -hypertension; resumed home meds; f/u as outpatient. -chronic kidney disease- stable. -history of DVT/PE; on Coumadin- -DVT prophylaxis; on Coumadin. continue PT. Discharge Planning dc to SNF when arrangements made. see med list. f/u; pcp and cardiology. d/w the patient. time spent 35 min. Problem Qualifiers (1) Acute exacerbation of CHF (congestive heart failure): Qualified Codes: I50.23 - Acute on chronic systolic (congestive) heart failure Herbert Rubio MD Nov 26, 2017 10:20
[2017-11-26] MEDS: TORSEMIDE 20 MG TAB PO SCH (11:25)
[2017-11-26 12:00] VITALS: BP 104/66; PULSE 70; RESP 18; TEMP 97.6; O2SAT 94
[2017-11-26] MEDS ORDERED: WARFARIN SOD 3 MG TAB PO ONE (16:00)
[2017-11-26 20:00] VITALS: BP 99/66; PULSE 71; RESP 18; TEMP 97.7; O2SAT 97
[2017-11-26] MEDS: TAMSULOSIN HCL 0.4 MG CAP PO SCH (21:16)
[2017-11-26] MEDS: ATORVASTATIN 40 MG TAB PO SCH (21:16)
[2017-11-26] MEDS: POTASSIUM CHLORIDE 10 MEQ CONTROLLED RELEASE TAB PO SCH (21:16)
[2017-11-26] MEDS: MELATONIN 5 MG TAB PO PRN (21:20)
[2017-11-26] MEDS: LORazepam 0.5 MG TAB PO PRN (21:20)
[2017-11-27] VITALS: BP 97/64; PULSE 67; RESP 18; TEMP 97.5; O2SAT 96
[2017-11-27 04:00] VITALS: BP 108/67; PULSE 70; RESP 18; TEMP 97.7; O2SAT 94
[2017-11-27 04:18] VITALS: O2SAT 96
[2017-11-27 08:26] VITALS: BP 101/66; PULSE 68; RESP 20; TEMP 97.6; O2SAT 95
[2017-11-27 08:53] LABS: PROTHROMBIN TIME - PATIENT 20.1 SEC (9.8-11.6)
[2017-11-27] MEDS: RAMIPRIL 5 MG CAP PO SCH (09:00)
[2017-11-27] MEDS: CARVEDILOL 3.125 MG TAB PO SCH (09:00)
[2017-11-27] MEDS: TIOTROPIUM BROMIDE 18 MCG INH INH SCH (09:16)
[2017-11-27] MEDS: TORSEMIDE 20 MG TAB PO SCH (09:20)
[2017-11-27] MEDS: DIGOXIN 0.125 MG TAB PO SCH (09:20)
[2017-11-27] MEDS: AMIODARONE 200 MG TAB PO SCH (09:20)
[2017-11-27] MEDS: PANTOPRAZOLE SOD 40 MG DELAYED RELEASE TAB PO SCH (09:21)
[2017-11-27] MEDS: FINASTERIDE 5 MG TAB PO SCH (09:21)
[2017-11-27] MEDS ORDERED: FLUT1SPR5 EACH NARE (10:49)
--- NOTE | 2017-11-27 10:49 | HHI.PR ---
Subjective Remarks in no acute distress. denies sob or chest pain. overall is doing fine. Objective Vitals Vital Signs Date Time Temp Pulse Resp B/P (MAP) Pulse Ox O2 Delivery O2 Flow Rate FiO2 11/27/17 08:26 97.6 68 20 101/66 (78) 95 11/27/17 04:18 96 Nasal Cannula 4.00 11/27/17 04:00 97.7 70 18 108/67 (81) 94 11/27/17 00:00 97.5 67 18 97/64 (75) 96 11/26/17 20:00 97.7 71 18 99/66 (77) 97 11/26/17 12:00 97.6 70 18 104/66 (79) 94 I/O 11/26/17 11/26/17 11/26/17 11/27/17 11/27/17 11/27/17 07:00 15:00 23:00 07:00 15:00 23:00 Intake Total 360 ml Output Total 1200 ml 800 ml Balance -1200 ml 360 ml -800 ml Intake Oral 360 ml Output Urine Total 1200 ml 800 ml # Bowel Movements 0 Result Diagram: 11/24/17 0658 Imaging Last Impressions Chest X-Ray 11/21/17 1020 Signed Impressions: Service Date/Time: Tuesday, November 21, 2017 10:49 - CONCLUSION: 1. Cardiomegaly with positive fluid balance. 2. Small right and trace left pleural effusions with associated lower lobe airspace disease, presumably compressive atelectasis. Edgar Forde MD Objective Remarks GENERAL:elderly male, in no apparent distress. CARDIOVASCULAR: Regular rate and irregular rhythm without murmurs, gallops, or rubs. RESPIRATORY: Clear to auscultation. Breath sounds equal bilaterally. No wheezes , rales, or rhonchi. GASTROINTESTINAL: Abdomen soft, non-tender, nondistended. Normal, active bowel sounds MUSCULOSKELETAL: Extremities without clubbing, cyanosis, or edema. NEURO: Alert & Oriented x4 to person, place, time, situation. Moves all ext x4 Procedures none Medications and IVs Inpatient Medications Albuterol/ Ipratropium (Duoneb Neb) 1 ampule Q4HR NEB PRN NEB SHORTNESS OF BREATH Last administered on 11/24/17at 19:32; Start 11/21/17 at 14:00 Amiodarone HCl (Cordarone) 200 mg DAILY PO Last administered on 11/27/17 09:20 ; Start 11/22/17 at 09:00 Aspirin (Aspirin) 325 mg ONCE ONCE PO Last administered on 11/21/17 10:53; Start 11/21/17 at 10:30; Stop 11/21/17 at 10:31; Status DC Atorvastatin Calcium (Lipitor) 40 mg HS PO Last administered on 11/26/17 21:16 ; Start 11/21/17 at 21:00 Carvedilol (Coreg) 3.125 mg BID PO Last administered on 11/26/17 09:18; Start 11/21/17 at 21:00 Digoxin (Lanoxin) 0.125 mg DAILY PO Last administered on 11/27/17 09:20; Start 11/22/17 at 09:00 Finasteride (Proscar) 5 mg DAILY PO Last administered on 11/27/17 09:21; Start 11/22/17 at 09:00 Furosemide (Lasix Inj) 20 mg ONCE ONCE IV PUSH Last administered on 11/24/17 16:35; Start 11/24/17 at 16:00; Stop 11/24/17 at 16:01; Status DC Lorazepam (Ativan) 0.5 mg Q12HR PRN PO ANXIETY Last administered on 11/26/17 21:20; Start 11/21/17 at 14:00 Melatonin (Melatonin) 5 mg HS PRN PO INSOMNIA Last administered on 11/26/17 21 :20; Start 11/22/17 at 15:45 Miscellaneous (Pill Splitter) 1 ea UNSCH PRN OTHER SEE LABEL COMMENTS; Start at 19:45 Pantoprazole Sodium (Protonix) 40 mg DAILY PO Last administered on 11/27/17 09 :21; Start 11/22/17 at 09:00 Patient Medication Teaching (Coumadin Booklet) 1 ONCE ONCE .XX Last administered on 11/21/17 16:16; Start 11/21/17 at 16:00; Stop 11/21/17 at 16:01; Status DC Pharmacy Profile Note 0 ml @ 0 mls/hr UNSCH OTHER ; Start 11/21/17 at 15:00 Potassium Chloride (KCl) 10 meq HS PO Last administered on 11/26/17 21:16; Start 11/21/17 at 21:00 Ramipril (Altace) 5 mg DAILY PO Last administered on 11/26/17 09:17; Start 11/22/17 at 09:00 Sodium Chloride (NS Flush) 2 ml UNSCH PRN IVF FLUSH AFTER USING IV ACCESS Last administered on 11/21/17 11:33; Start 11/21/17 at 10:30 Tamsulosin HCl (Flomax) 0.4 mg HS PO Last administered on 11/26/17 21:16; Start 11/21/17 at 21:00 Tiotropium [place] (Spiriva Inh) 18 mcg DAILY INH Last administered on 09:16; Start 11/22/17 at 09:00 Torsemide (Demadex) 20 mg DAILY PO Last administered on 11/27/17 09:20; Start 11/26/17 at 12:00 Warfarin Sodium (Coumadin) 2.5 mg DAILY@1600 PO ; Start 11/27/17 at 16:00 A/P Problem List: (1) Acute exacerbation of CHF (congestive heart failure) ICD Code: I50.9 - Heart failure, unspecified Status: Acute Assessment and Plan A/P - acute on chronic respiratory failure due to decompensated systolic CHF- improved. switch to po diuretics. continue coreg and ramipril. -chest pain with history of CAD- chest pain free today. continue BB and statin- serial troponin negative. being f/u by . -COPD- on home oxygen; continue with Spiriva and neb treatments- keep on oxygen to keep O2 sat >90%. -atrial fibrillation; continue Coreg, Amiodarone, Digoxin and Coumadin- -hypertension; resumed home meds; f/u as outpatient. -chronic kidney disease- stable. -history of DVT/PE; on Coumadin- -DVT prophylaxis; on Coumadin. continue PT. Discharge Planning rehab was declined by his insurance. will dc home with [facility]. see med list. f/u; pcp and cardiology. d/w the patient and case management. time spent 35 min. Problem Qualifiers (1) Acute exacerbation of CHF (congestive heart failure): Qualified Codes: I50.23 - Acute on chronic systolic (congestive) heart failure Herbert Rubio MD Nov 27, 2017 10:49
[2017-11-27] MEDS ORDERED: WARFARIN SOD 2.5 MG TAB PO SCH (16:00)
== END 2017-11-27 13:47 | disposition home health service (06) | DRG 291 ==
LOC: NEPC 09:57 → NEDA 12:12 → N05A 17:30
PROVIDERS: ADMIT Internal Medicine; ATTEND Internal Medicine
DX: I13.0 Hypertensive heart and chronic kidney disease with heart failure and stage 1 through stage 4 chronic kidney disease, or unspecified chronic kidney disease (principal); I50.23 Acute on chronic systolic (congestive) heart failure; J96.20 Acute and chronic respiratory failure, unspecified whether with hypoxia or hypercapnia; I27.20 Pulmonary hypertension, unspecified; I48.91 Unspecified atrial fibrillation; J44.9 Chronic obstructive pulmonary disease, unspecified; I25.10 Atherosclerotic heart disease of native coronary artery without angina pectoris; N18.3 Chronic kidney disease, stage 3 (moderate); K21.9 Gastro-esophageal reflux disease without esophagitis; I25.2 Old myocardial infarction; G47.30 Sleep apnea, unspecified; E78.5 Hyperlipidemia, unspecified; N40.0 Benign prostatic hyperplasia without lower urinary tract symptoms; H91.91 Unspecified hearing loss, right ear; Z79.01 Long term (current) use of anticoagulants; Z86.711 Personal history of pulmonary embolism; Z86.718 Personal history of other venous thrombosis and embolism; Z87.891 Personal history of nicotine dependence; Z88.0 Allergy status to penicillin; Z95.810 Presence of automatic (implantable) cardiac defibrillator; Z99.81 Dependence on supplemental oxygen
CPT/HCPCS: 71046; 80048; 80053; 82550; 83735; 83880; 84484; 85025; 85610; 85730; 93005; 94640; 94664; 96374; J1940